=== PATIENT | female | born 1945 | race Caucasian/White ===

== ENCOUNTER → 2016-02-13 | Outpatient (CLI) | payer MEDICARE, OTHER ==
[~2016-02-13] MED LIST: ADV250INH INH; ARAV20TA PO; ASPI81TA85 PO; CALC600T21 PO; HYDR200T3 PO; IRON65TA PO; JANU100T PO; JANU50TA8 PO; PROT1TAB2 PO; SIMV10TA2 PO; TRAM50TA2 PO; VITA100066 PO; VITA100L PO; ZOFR8TAB PO
[2016-02-13 19:04] LABS: ALBUMIN 3.6 GM/DL (3.2-5.2); CALCIUM LEVEL 8.7 MG/DL (8.8-10.2); CREATININE FOR GFR 1.46 MG/DL (0.55-1.02); GLOMERULAR FILTRATION RATE 37.8 (>45); PHOSPHORUS LEVEL 3.9 MG/DL (2.5-4.9)
[2016-02-13 19:48] LABS: BASO % 0.5 % (0.0-1.0); EOS # 0.4 K/mm3 (0.0-0.50); EOS % 6.1 % (0.0-3.0); LARGE UNSTAINED CELL # 0.2 K/mm3 (0.0-0.4); LARGE UNSTAINED CELL % 3.5 % (0.0-4.0); LYMPH # 2.5 K/mm3 (1.5-4.5); LYMPH % 39.8 % (24.0-44.0); MEAN CORPUSCULAR HGB CONC 30.9 g/dl (32.0-36.5); MEAN CORPUSCULAR VOLUME 96.9 fl (80.0-96.0); MONO # 0.5 K/mm3 (0.0-0.8); MONO % 8.4 % (0.0-5.0); NEUTROPHILS # 2.6 K/mm3 (1.8-7.7); NEUTROPHILS % 41.8 % (36.0-66.0); PLATELET COUNT, AUTOMATED 307 k/mm3 (150-450); RED CELL DISTRIBUTION WIDTH 13.8 % (11.5-14.5); WHITE BLOOD COUNT 6.3 K/mm3 (4.0-10.0)
[2016-02-13 20:28] LABS: ERYTHROCYTE SEDIMENTATION RATE 16 mm/hr (0-30)
== END ==
LOC: M WUC 13:08
PROVIDERS: ATTEND Internal Medicine Rheumatology
DX: M05.79 Rheumatoid arthritis with rheumatoid factor of multiple sites without organ or systems involvement (principal); N18.3 Chronic kidney disease, stage 3 (moderate); D63.8 Anemia in other chronic diseases classified elsewhere; Z79.899 Other long term (current) drug therapy

== ENCOUNTER → 2016-04-24 | Outpatient (CLI) | payer MEDICARE, OTHER ==
--- NOTE | 2016-04-24 15:06 | REP ---
Chest x-ray: Two views. History: COPD, respiratory infection. Cold symptoms for 2 months. Comparison chest x-ray is from February 04, 2015. Findings: The lungs are markedly hyperinflated consistent with COPD but clear. Pleural angles are sharp. Heart size is normal. Pulmonary vasculature is not increased. No significant bony abnormality is seen. Impression: Hyperinflation consistent with COPD. No acute disease. Signed by Ahsan Evangelista MD 04/24/2016 05:11 P
== END ==
LOC: M WUC 14:38
PROVIDERS: ATTEND Physician Assistant
DX: J44.0 Chronic obstructive pulmonary disease with (acute) lower respiratory infection (principal)

== ENCOUNTER → 2016-04-26 | Outpatient (CLI) | payer MEDICARE, OTHER ==
[2016-04-26 13:25] LABS: CREATININE FOR GFR 1.85 MG/DL (0.55-1.02); GLOMERULAR FILTRATION RATE 28.8 (>45); POTASSIUM SERUM 4.9 MEQ/L (3.5-5.1)
== END ==
LOC: M WUC 09:34
PROVIDERS: ATTEND Physician Assistant Medical
DX: E11.8 Type 2 diabetes mellitus with unspecified complications (principal); E78.5 Hyperlipidemia, unspecified; N18.9 Chronic kidney disease, unspecified; M81.0 Age-related osteoporosis without current pathological fracture

== ENCOUNTER → 2016-08-10 | Outpatient (CLI) | payer MEDICARE, OTHER ==
[~2016-08-10] MED LIST changes: -CALC600T21 PO; +CALC600T60 PO
[2016-08-10 15:58] LABS: MEAN CORPUSCULAR HEMOGLOBIN 28.2 pg (27.0-33.0); MEAN CORPUSCULAR VOLUME 90.8 fl (80.0-96.0); WHITE BLOOD COUNT 8.7 K/mm3 (4.0-10.0)
[2016-08-10 16:01] LABS: ALBUMIN 3.5 GM/DL (3.2-5.2); CALCIUM LEVEL 8.9 MG/DL (8.8-10.2); CREATININE FOR GFR 1.65 MG/DL (0.55-1.02); GLOMERULAR FILTRATION RATE 32.8 (>45); MAGNESIUM LEVEL 2.1 MG/DL (1.8-2.4); PHOSPHORUS LEVEL 3.8 MG/DL (2.5-4.9); POTASSIUM SERUM 4.6 MEQ/L (3.5-5.1)
[2016-08-11 07:33] LABS: MICROSCOPIC EXAM QNS; MICROSCOPIC INDICATED? MAN YES (NO)
== END ==
LOC: M WUC 11:14
PROVIDERS: ATTEND Internal Medicine Nephrology
DX: N18.3 Chronic kidney disease, stage 3 (moderate) (principal); E11.22 Type 2 diabetes mellitus with diabetic chronic kidney disease; D63.1 Anemia in chronic kidney disease

== ENCOUNTER → 2016-10-07 | Outpatient (CLI) | payer MEDICARE, BC, OTHER ==
[2016-10-07 14:05] LABS: CALCIUM LEVEL 9.2 MG/DL (8.8-10.2); CREATININE FOR GFR 1.8 MG/DL (0.55-1.02); GLOMERULAR FILTRATION RATE 29.6 (>39); POTASSIUM SERUM 4.3 MEQ/L (3.5-5.1)
== END ==
LOC: M SMT 10:35
PROVIDERS: ATTEND Internal Medicine Cardiovascular Disease
DX: I10 Essential (primary) hypertension (principal); R60.9 Edema, unspecified

== ENCOUNTER → 2016-10-25 | Outpatient (CLI) | payer MEDICARE, BC, OTHER ==
[2016-10-25 11:16] LABS: CALCIUM LEVEL 8.5 MG/DL (8.8-10.2); CREATININE FOR GFR 1.9 MG/DL (0.55-1.02); GLOMERULAR FILTRATION RATE 27.8 (>39); POTASSIUM SERUM 4.2 MEQ/L (3.5-5.1)
== END ==
LOC: M WUC 10:04
PROVIDERS: ATTEND Physician Assistant Medical
DX: E11.9 Type 2 diabetes mellitus without complications (principal)

== ENCOUNTER → 2016-11-18 | Outpatient (CLI) | payer MEDICARE, BC, OTHER ==
[2016-11-18 14:23] LABS: FREE T4 1.41 NG/DL (0.76-1.46)
[2016-11-18 14:48] LABS: HEP C VIRUS AB SCREEN MEDICARE 0.3 INDEX (<0.8)
== END ==
LOC: M WUC 10:32
PROVIDERS: ATTEND Physician Assistant Medical
DX: R63.5 Abnormal weight gain (principal); Z11.59 Encounter for screening for other viral diseases
CPT/HCPCS: 36415; 84439; 84443; G0472

== ENCOUNTER → 2017-01-25 | Outpatient (CLI) | payer MEDICARE, BC, OTHER ==
[2017-01-25 14:36] LABS: CALCIUM LEVEL 8.6 MG/DL (8.8-10.2); CREATININE FOR GFR 1.75 MG/DL (0.55-1.02); GLOMERULAR FILTRATION RATE 30.6 (>39); POTASSIUM SERUM 4.5 MEQ/L (3.5-5.1)
== END ==
LOC: M WUC 09:29
PROVIDERS: ATTEND Physician Assistant Medical
DX: E11.8 Type 2 diabetes mellitus with unspecified complications (principal)

== ENCOUNTER → 2017-02-21 | Outpatient (REF) | payer MEDICARE, OTHER ==
[2017-02-21 14:27] LABS: FERRITIN 10 NG/ML (8-252); IRON (FE) 32 UG/DL (50-170); PERCENT SATURATION 6.7 % (13.2-45.0); TOTAL IRON BINDING CAPACITY 476 UG/DL (250-450)
[2017-02-21 14:29] LABS: FOLATE 7.5 NG/ML; VITAMIN B12 LEVEL 320 PG/ML
== END ==
LOC: M LAB REF 13:34
DX: D64.9 Anemia, unspecified (principal)
CPT/HCPCS: 82746

== ENCOUNTER → 2017-02-28 | Outpatient (CLI) | payer MEDICARE, BC, OTHER | LOC: M RAD 10:58 | DX: Z12.2 Encounter for screening for malignant neoplasm of respiratory organs (principal); R91.8 Other nonspecific abnormal finding of lung field; Z87.891 Personal history of nicotine dependence | CPT/HCPCS: G0297 ==

== ENCOUNTER → 2017-05-27 | Outpatient (CLI) | payer MEDICARE, BC, OTHER ==
[2017-05-27 18:16] LABS: ANION GAP 11 MEQ/L (8-16); BLOOD UREA NITROGEN 13 MG/DL (7-18); CALCIUM LEVEL 9.2 MG/DL (8.8-10.2); CARBON DIOXIDE LEVEL 28 MEQ/L (21-32); CHLORIDE LEVEL 101 MEQ/L (98-107); CHOLESTEROL LEVEL 192 MG/DL (<200); CHOLESTEROL RISK RATIO 2.133 (<5); CREATININE FOR GFR 1.81 MG/DL (0.55-1.30); ESTIMATED AVERAGE GLUCOSE 146 MG/DL (60-110); GLOMERULAR FILTRATION RATE 29.4 (>39); GLUCOSE, FASTING 118 MG/DL (70-100); HDL CHOLESTEROL 90 MG/DL (>40); HEMOGLOBIN A1c 6.7 %; LDL CHOLESTEROL 81.6 MG/DL (<100); NON-HDL-C 102 MG/DL; POTASSIUM SERUM 4.5 MEQ/L (3.5-5.1); SODIUM LEVEL 140 MEQ/L (136-145); TRIGLYCERIDES LEVEL 102 MG/DL (<150)
[2017-05-27 18:30] LABS: CREATININE, URINE 21.7 MG/DL; MALB URINE SIEMENS 7.3 MG/L; MAU/CREAT RATIO 33.6 MCG/MG (0.0-30.0)
== END ==
LOC: M WUC 09:11
DX: E11.8 Type 2 diabetes mellitus with unspecified complications (principal); E78.5 Hyperlipidemia, unspecified
CPT/HCPCS: 83036

== ENCOUNTER → 2017-06-06 | Outpatient (CLI) | payer MEDICARE, BC, OTHER | LOC: M PLARAD 12:15 | DX: R91.8 Other nonspecific abnormal finding of lung field (principal); Z87.891 Personal history of nicotine dependence | CPT/HCPCS: 78815 ==

== ENCOUNTER → 2017-06-22 | Outpatient (REF) | payer MEDICARE, OTHER ==
[2017-06-22 19:48] LABS: ALBUMIN 3.9 GM/DL (3.2-5.2); ALKALINE PHOSPHATASE 62 U/L (45-117); ALT/SGPT 12 U/L (12-78); AST/SGOT 15 U/L (7-37); BILIRUBIN,DIRECT < 0.1 MG/DL (0.0-0.2); BILIRUBIN,TOTAL 0.3 MG/DL (0.2-1.0); TOTAL PROTEIN 7.8 GM/DL (6.4-8.2)
== END ==
LOC: M LAB REF 17:32
DX: E78.5 Hyperlipidemia, unspecified (principal)
CPT/HCPCS: 80076

== ENCOUNTER → 2017-11-29 | Outpatient (CLI) | payer MEDICARE, OTHER ==
[2017-11-29 13:56] LABS: ANION GAP 7 MEQ/L (8-16); BLOOD UREA NITROGEN 14 MG/DL (7-18); CALCIUM LEVEL 9.1 MG/DL (8.8-10.2); CARBON DIOXIDE LEVEL 30 MEQ/L (21-32); CHLORIDE LEVEL 102 MEQ/L (98-107); CREATININE FOR GFR 1.67 MG/DL (0.55-1.30); GLOMERULAR FILTRATION RATE 32.2 (>39); GLUCOSE, FASTING 110 MG/DL (70-100); POTASSIUM SERUM 4.5 MEQ/L (3.5-5.1); SODIUM LEVEL 139 MEQ/L (136-145)
[2017-11-29 14:03] LABS: ESTIMATED AVERAGE GLUCOSE 154 MG/DL (60-110)
[2017-11-29 14:15] LABS: TOTAL 25(OH) VITAMIN D 33.2 NG/ML (30.0-100.0)
== END ==
LOC: M WUC 09:43
DX: E11.22 Type 2 diabetes mellitus with diabetic chronic kidney disease (principal); M81.0 Age-related osteoporosis without current pathological fracture; N18.3 Chronic kidney disease, stage 3 (moderate); E55.9 Vitamin D deficiency, unspecified
CPT/HCPCS: 83036

== ENCOUNTER → 2017-12-13 | Outpatient (REF) | payer MEDICARE, OTHER ==
[2017-12-13 17:03] LABS: BASO # 0.1 10^3/uL (0.0-0.2); BASO % 0.9 % (0.0-1.0); EOS # 0.2 10^3/uL (0.0-0.50); EOS % 2.4 % (0.0-3.0); HEMATOCRIT 37.6 % (36.0-47.0); HEMOGLOBIN 11.6 g/dl (12.0-15.5); IMMATURE GRANULOCYTE % 0.3 % (0-3.0); LYMPH % 37.8 % (24.0-44.0); MEAN CORPUSCULAR HEMOGLOBIN 27.5 pg (27.0-33.0); MEAN CORPUSCULAR HGB CONC 30.9 g/dl (32.0-36.5); MEAN CORPUSCULAR VOLUME 89.1 fl (80.0-96.0); MONO % 12.6 % (0.0-5.0); NEUTROPHILS # 3.6 10^3/uL (1.8-7.7); PLATELET COUNT, AUTOMATED 313 10^3/uL (150-450); RED BLOOD COUNT 4.22 10^6/uL (4.00-5.40); RED CELL DISTRIBUTION WIDTH 17.3 % (11.5-14.5); WHITE BLOOD COUNT 7.8 10^3/uL (4.0-10.0)
[2017-12-13 17:11] LABS: ALBUMIN 3.8 GM/DL (3.2-5.2); ALBUMIN/GLOBULIN RATIO 1.09 (1.00-1.93); ALKALINE PHOSPHATASE 54 U/L (45-117); ALT/SGPT 11 U/L (12-78); ANION GAP 7 MEQ/L (8-16); AST/SGOT 16 U/L (7-37); BILIRUBIN,TOTAL 0.2 MG/DL (0.2-1.0); BLOOD UREA NITROGEN 13 MG/DL (7-18); C REACTIVE PROTEIN QUANTITATIV < 0.30 MG/DL (0.00-0.30); CALCIUM LEVEL 9.2 MG/DL (8.8-10.2); CARBON DIOXIDE LEVEL 32 MEQ/L (21-32); CHLORIDE LEVEL 98 MEQ/L (98-107); CREATININE FOR GFR 1.76 MG/DL (0.55-1.30); GLOMERULAR FILTRATION RATE 30.3 (>39); GLUCOSE, FASTING 124 MG/DL (70-100); POTASSIUM SERUM 3.9 MEQ/L (3.5-5.1); SODIUM LEVEL 137 MEQ/L (136-145); TOTAL PROTEIN 7.3 GM/DL (6.4-8.2)
[2017-12-13 18:00] LABS: ERYTHROCYTE SEDIMENTATION RATE 21 mm/hr (0-30)
[2017-12-15 10:57] LABS: HEPATITIS B SURFACE ANTIBODY NEGATIVE (POSITIVE)
[2017-12-15 11:05] LABS: HEPATITIS B SURFACE ANTIGEN NEGATIVE (NEGATIVE)
[2017-12-16 00:06] LABS: CYCLIC CITRULLINATED PEPTIDE 216 units (0-19)
[2017-12-16 00:06] LABS: HEPATITIS B CORE ANTIBODY IGG Negative (Negative)
== END ==
LOC: M SFHCLERA 12:00
DX: M06.9 Rheumatoid arthritis, unspecified (principal)
CPT/HCPCS: 80053

== ENCOUNTER → 2018-01-08 | Outpatient (CLI) | payer MEDICARE, OTHER | LOC: M WUC 14:33 | DX: R05 Cough (principal) | CPT/HCPCS: 71046 ==

== ENCOUNTER → 2018-06-05 | Outpatient (CLI) | payer MEDICARE, BC, OTHER ==
[~2018-06-05] MED LIST changes: -ZOFR8TAB PO; +ZOFR8TAB24 PO
[2018-06-05 13:33] LABS: ALBUMIN 3.4 GM/DL (3.2-5.2); BILIRUBIN,TOTAL 0.3 MG/DL (0.2-1.0); CALCIUM LEVEL 8.6 MG/DL (8.8-10.2); CHOLESTEROL RISK RATIO 1.978 (<5); CREATININE FOR GFR 1.59 MG/DL (0.55-1.30); GLOMERULAR FILTRATION RATE 34.1 (>39); POTASSIUM SERUM 4.6 MEQ/L (3.5-5.1); TOTAL PROTEIN 7.1 GM/DL (6.4-8.2)
[2018-06-05 14:22] LABS: HEMOGLOBIN A1c 7.6 %
== END ==
LOC: M WUC 09:40
PROVIDERS: ATTEND Physician Assistant Medical
DX: E11.8 Type 2 diabetes mellitus with unspecified complications (principal); E78.5 Hyperlipidemia, unspecified

== ENCOUNTER → 2018-06-08 | Outpatient (REF) | payer MEDICARE, OTHER ==
[2018-06-08 15:44] LABS: CREATININE, URINE 32.2 MG/DL; MALB URINE SIEMENS 5.5 MG/L
== END ==
LOC: M LAB REF 14:27
PROVIDERS: ATTEND Physician Assistant Medical
DX: E11.8 Type 2 diabetes mellitus with unspecified complications (principal); E78.5 Hyperlipidemia, unspecified

== ENCOUNTER → 2018-06-13 | Outpatient (CLI) | payer MEDICARE, OTHER ==
[2018-06-13 16:53] LABS: ALBUMIN 3.5 GM/DL (3.2-5.2); ALT/SGPT 15 U/L (12-78); BILIRUBIN,TOTAL 0.2 MG/DL (0.2-1.0); BLOOD UREA NITROGEN 13 MG/DL (7-18); C REACTIVE PROTEIN QUANTITATIV < 0.30 MG/DL (0.00-0.30); CALCIUM LEVEL 8.8 MG/DL (8.8-10.2); CARBON DIOXIDE LEVEL 28 MEQ/L (21-32); CHLORIDE LEVEL 106 MEQ/L (98-107); CREATININE FOR GFR 1.37 MG/DL (0.55-1.30); GLOMERULAR FILTRATION RATE 40.5 (>39); GLUCOSE, FASTING 114 MG/DL (70-100); POTASSIUM SERUM 4.5 MEQ/L (3.5-5.1); SODIUM LEVEL 138 MEQ/L (136-145); TOTAL PROTEIN 6.5 GM/DL (6.4-8.2)
[2018-06-13 17:25] LABS: BASO # 0.1 10^3/uL (0.0-0.2); BASO % 0.7 % (0.0-1.0); EOS # 0.3 10^3/uL (0.0-0.50); EOS % 3.8 % (0.0-3.0); HEMOGLOBIN 10.6 g/dl (12.0-15.5); LYMPH # 2.9 10^3/uL (1.5-4.5); LYMPH % 34.5 % (24.0-44.0); MEAN CORPUSCULAR HEMOGLOBIN 27.6 pg (27.0-33.0); MEAN CORPUSCULAR HGB CONC 30.3 g/dl (32.0-36.5); MEAN CORPUSCULAR VOLUME 91.1 fl (80.0-96.0); MONO % 12.2 % (0.0-5.0); NEUTROPHILS # 4.1 10^3/uL (1.8-7.7); NEUTROPHILS % 48.4 % (36.0-66.0); PLATELET COUNT, AUTOMATED 279 10^3/uL (150-450); RED BLOOD COUNT 3.84 10^6/uL (4.00-5.40); WHITE BLOOD COUNT 8.5 10^3/uL (4.0-10.0)
[2018-06-13 18:07] LABS: ERYTHROCYTE SEDIMENTATION RATE 21 mm/hr (0-30)
== END ==
LOC: M WUC 14:15
PROVIDERS: ATTEND Internal Medicine Rheumatology
DX: M06.9 Rheumatoid arthritis, unspecified (principal)

== ENCOUNTER → 2018-09-11 | Outpatient (CLI) | payer MEDICARE, OTHER ==
[~2018-09-11] MED LIST changes: +EFFE20TA PO; +ETAN50SY SC; +INCR1INH INH; +OMEG100011 PO; +RALO1TAB PO; -SIMV10TA2 PO; +SIMV10TA21 PO; +SITA50TAB PO; +TORS20TA2 PO; +TRUL0.5I SC; +VENTAER INH; +VIAC1CHW PO
[2018-09-11 14:27] LABS: BASO # 0.1 10^3/uL (0.0-0.2); BASO % 0.6 % (0.0-1.0); EOS # 0.2 10^3/uL (0.0-0.50); EOS % 2.3 % (0.0-3.0); HEMATOCRIT 38.1 % (36.0-47.0); HEMOGLOBIN 11.6 g/dl (12.0-15.5); LYMPH # 2.6 10^3/uL (1.5-4.5); LYMPH % 31.1 % (24.0-44.0); MEAN CORPUSCULAR HEMOGLOBIN 27.9 pg (27.0-33.0); MEAN CORPUSCULAR HGB CONC 30.4 g/dl (32.0-36.5); MEAN CORPUSCULAR VOLUME 91.6 fl (80.0-96.0); MONO # 0.9 10^3/uL (0.0-0.8); MONO % 11.2 % (0.0-5.0); NEUTROPHILS # 4.5 10^3/uL (1.8-7.7); NEUTROPHILS % 54.3 % (36.0-66.0); PLATELET COUNT, AUTOMATED 297 10^3/uL (150-450); RED BLOOD COUNT 4.16 10^6/uL (4.00-5.40); WHITE BLOOD COUNT 8.2 10^3/uL (4.0-10.0)
[2018-09-11 14:31] LABS: CALCIUM LEVEL 9.3 MG/DL (8.8-10.2); CHOLESTEROL RISK RATIO 2.164 (<5); CREATININE FOR GFR 1.38 MG/DL (0.55-1.30); GLOMERULAR FILTRATION RATE 40.1 (>39); POTASSIUM SERUM 4.1 MEQ/L (3.5-5.1)
[2018-09-11 15:01] LABS: HEMOGLOBIN A1c 7.6 %
== END ==
LOC: M WUC 08:21
PROVIDERS: ATTEND Physician Assistant Medical
DX: E11.8 Type 2 diabetes mellitus with unspecified complications (principal)

== ENCOUNTER 2018-09-22 12:39 | Emergency (ER) | payer MEDICARE, BC, OTHER ==
[~2018-09-22] VITALS: Ht 152.4 cm; Wt 73.4 kg
[~2018-09-22 12:39] MED LIST changes: -EFFE20TA PO; -ETAN50SY SC; -INCR1INH INH; -OMEG100011 PO; -RALO1TAB PO; -SITA50TAB PO; -TORS20TA2 PO; -TRUL0.5I SC; -VENTAER INH; -VIAC1CHW PO
[2018-09-22 12:40] VITALS: BP 176/87
[2018-09-22] MEDS ORDERED: SITA50TAB PO (12:56)
[2018-09-22] MEDS ORDERED: ETAN50SY SC (12:56)
[2018-09-22] MEDS ORDERED: OMEG100011 PO (12:56)
[2018-09-22] MEDS ORDERED: VENTAER INH (12:56)
[2018-09-22] MEDS ORDERED: RALO1TAB PO (12:56)
[2018-09-22] MEDS ORDERED: TRUL0.5I SC (12:56)
[2018-09-22] MEDS ORDERED: VIAC1CHW PO (12:56)
[2018-09-22] MEDS ORDERED: ADV250INH INH (12:56)
[2018-09-22] MEDS ORDERED: INCR1INH INH (12:56)
[2018-09-22] MEDS ORDERED: TORS20TA2 PO (12:56)
[2018-09-22] MEDS ORDERED: EFFE20TA PO (12:56)
[2018-09-22 13:28] LABS: BASO # 0.1 10^3/uL (0.0-0.2); BASO % 0.8 % (0.0-1.0); EOS # 0.2 10^3/uL (0.0-0.50); EOS % 3.1 % (0.0-3.0); HEMATOCRIT 40.3 % (36.0-47.0); HEMOGLOBIN 12.5 g/dl (12.0-15.5); LYMPH # 2.7 10^3/uL (1.5-4.5); LYMPH % 35.5 % (24.0-44.0); MEAN CORPUSCULAR HEMOGLOBIN 28.2 pg (27.0-33.0); MEAN CORPUSCULAR VOLUME 90.8 fl (80.0-96.0); MONO % 13.4 % (0.0-5.0); NEUTROPHILS # 3.6 10^3/uL (1.8-7.7); NEUTROPHILS % 46.8 % (36.0-66.0); PLATELET COUNT, AUTOMATED 365 10^3/uL (150-450); RED BLOOD COUNT 4.44 10^6/uL (4.00-5.40); WHITE BLOOD COUNT 7.6 10^3/uL (4.0-10.0)
[2018-09-22 13:47] LABS: HEMOGLOBIN A1c 7.9 %
[2018-09-22 14:05] LABS: ACETONE/KETONE 2.2 MG/DL (<2.81); CALCIUM LEVEL 9.6 MG/DL (8.8-10.2); CREATININE FOR GFR 1.62 MG/DL (0.55-1.30); GLOMERULAR FILTRATION RATE 33.3 (>39); MAGNESIUM LEVEL 2.4 MG/DL (1.8-2.4); POTASSIUM SERUM 4.3 MEQ/L (3.5-5.1)
--- NOTE | 2018-09-22 19:38 | ECGEPIP ---
[facility] - ED Test Date: 2018-09-22 Pat Name: BEVERLY AUSTIN Department: Room: - Gender: Female [employer]: ct : 1945 Requested By: GEOVANNA Jensen PA-C Order Number: [id number] Reading MD: Fernando Otoole Measurements Intervals [place] Rate: 76 P: 85 TX: 158 QRS: -26 QRSD: 86 T: 74 QT: 377 QTc: 426 Interpretive Statements SINUS RHYTHM BORDERLINE LEFT AXIS DEVIATION NONSPECIFIC ST T WAVE CHANGES POSSIBE INFERIOR WALL SC AGE UNDETERMINED NO PRIOR ECG FOR COMPARISON Electronically Signed on 09-22-2018 19:38:30 EDT by Fernando Otoole
== END 2018-09-22 15:15 | disposition home or self-care (01) ==
LOC: M ED 12:39
DX: E11.9 Type 2 diabetes mellitus without complications (principal); N18.9 Chronic kidney disease, unspecified; R79.89 Other specified abnormal findings of blood chemistry; I12.9 Hypertensive chronic kidney disease with stage 1 through stage 4 chronic kidney disease, or unspecified chronic kidney disease; J45.909 Unspecified asthma, uncomplicated; D50.9 Iron deficiency anemia, unspecified; K21.9 Gastro-esophageal reflux disease without esophagitis; Z79.4 Long term (current) use of insulin; Z79.899 Other long term (current) drug therapy; Z79.82 Long term (current) use of aspirin; Z88.1 Allergy status to other antibiotic agents; Z88.2 Allergy status to sulfonamides; F17.210 Nicotine dependence, cigarettes, uncomplicated

== ENCOUNTER → 2018-12-10 | Outpatient (CLI) | payer MEDICARE, BC, OTHER ==
[~2018-12-10] MED LIST changes: +EFFE20TA PO; +ETAN50SY SC; +INCR1INH INH; +OMEG100011 PO; +RALO1TAB PO; +SIMV10TA2 PO; -SIMV10TA21 PO; +SITA50TAB PO; +TORS20TA2 PO; +TRUL0.5I SC; +VENTAER INH; +VIAC1CHW PO
[2018-12-10 17:12] LABS: BASO # 0.1 10^3/uL (0.0-0.2); EOS # 0.3 10^3/uL (0.0-0.5); EOS % 3.6 % (0.0-3.0); HEMATOCRIT 35.6 % (36.0-47.0); HEMOGLOBIN 10.5 g/dl (12.0-15.5); LYMPH # 3.1 10^3/uL (1.5-5.0); LYMPH % 37.5 % (24.0-44.0); MEAN CORPUSCULAR HEMOGLOBIN 27.4 pg (27.0-33.0); MEAN CORPUSCULAR HGB CONC 29.5 g/dl (32.0-36.5); MONO # 1.1 10^3/uL (0.0-0.8); MONO % 13.1 % (0.0-5.0); NEUTROPHILS # 3.7 10^3/uL (1.5-8.5); NEUTROPHILS % 44.6 % (36.0-66.0); PLATELET COUNT, AUTOMATED 379 10^3/uL (150-450); RED BLOOD COUNT 3.83 10^6/uL (4.00-5.40); WHITE BLOOD COUNT 8.3 10^3/uL (4.0-10.0)
== END ==
LOC: M WUC 12:13
PROVIDERS: ATTEND Internal Medicine Rheumatology
DX: M06.9 Rheumatoid arthritis, unspecified (principal)

== ENCOUNTER → 2018-12-10 | Outpatient (CLI) | payer MEDICARE, BC, OTHER ==
[~2018-12-10] MED LIST changes: -SIMV10TA2 PO; +SIMV10TA21 PO
[2018-12-10 17:21] LABS: ALBUMIN 3.4 GM/DL (3.2-5.2); BILIRUBIN,TOTAL 0.6 MG/DL (0.2-1.0); CREATININE FOR GFR 1.51 MG/DL (0.55-1.30); GLOMERULAR FILTRATION RATE 36.1 (>39); POTASSIUM SERUM 4.5 MEQ/L (3.5-5.1); TOTAL PROTEIN 6.8 GM/DL (6.4-8.2)
== END ==
LOC: M WUC 12:09
PROVIDERS: ATTEND Family Medicine
DX: E11.69 Type 2 diabetes mellitus with other specified complication (principal)

== ENCOUNTER → 2019-06-12 | Outpatient (CLI) | payer MEDICARE, BC, OTHER ==
[2019-06-12 14:00] LABS: BASO # 0.1 10^3/uL (0.0-0.2); BASO % 0.9 % (0.0-1.0); EOS # 0.4 10^3/uL (0.0-0.5); EOS % 3.9 % (0.0-3.0); HEMATOCRIT 38.1 % (36.0-47.0); HEMOGLOBIN 11.7 g/dl (12.0-15.5); LYMPH # 2.7 10^3/uL (1.5-5.0); LYMPH % 30.5 % (24.0-44.0); MEAN CORPUSCULAR HEMOGLOBIN 29.3 pg (27.0-33.0); MEAN CORPUSCULAR HGB CONC 30.7 g/dl (32.0-36.5); MEAN CORPUSCULAR VOLUME 95.3 fl (80.0-96.0); MONO # 1.1 10^3/uL (0.0-0.8); MONO % 12.3 % (0.0-5.0); NEUTROPHILS # 4.7 10^3/uL (1.5-8.5); NEUTROPHILS % 52.2 % (36.0-66.0); PLATELET COUNT, AUTOMATED 390 10^3/uL (150-450)
[2019-06-12 14:01] LABS: BASO # 0.1 10^3/uL (0.0-0.2); EOS # 0.4 10^3/uL (0.0-0.5); HEMATOCRIT 38.3 % (36.0-47.0); HEMOGLOBIN 11.8 g/dl (12.0-15.5); LYMPH # 2.7 10^3/uL (1.5-5.0); LYMPH % 31.5 % (24.0-44.0); MEAN CORPUSCULAR HEMOGLOBIN 29.2 pg (27.0-33.0); MEAN CORPUSCULAR HGB CONC 30.8 g/dl (32.0-36.5); MEAN CORPUSCULAR VOLUME 94.8 fl (80.0-96.0); MONO # 1.1 10^3/uL (0.0-0.8); MONO % 12.5 % (0.0-5.0); NEUTROPHILS # 4.4 10^3/uL (1.5-8.5); NEUTROPHILS % 50.8 % (36.0-66.0); PLATELET COUNT, AUTOMATED 402 10^3/uL (150-450); RED BLOOD COUNT 4.04 10^6/uL (4.00-5.40); WHITE BLOOD COUNT 8.7 10^3/uL (4.0-10.0)
[2019-06-12 14:17] LABS: HEMOGLOBIN A1c 6.7 %
[2019-06-12 14:21] LABS: ERYTHROCYTE SEDIMENTATION RATE 30 mm/hr (0-30)
[2019-06-12 14:34] LABS: ALBUMIN 3.6 GM/DL (3.2-5.2); ALT/SGPT 17 U/L (12-78); BILIRUBIN,TOTAL 0.3 MG/DL (0.2-1.0); BLOOD UREA NITROGEN 16 MG/DL (7-18); C REACTIVE PROTEIN QUANTITATIV < 0.30 MG/DL (0.00-0.30); CARBON DIOXIDE LEVEL 35 MEQ/L (21-32); CHLORIDE LEVEL 99 MEQ/L (98-107); CREATININE FOR GFR 1.71 MG/DL (0.55-1.30); GLOMERULAR FILTRATION RATE 31.2 (>39); GLUCOSE, FASTING 108 MG/DL (70-100); POTASSIUM SERUM 4.1 MEQ/L (3.5-5.1); SODIUM LEVEL 139 MEQ/L (136-145); TOTAL PROTEIN 7.3 GM/DL (6.4-8.2)
[2019-06-12 14:36] LABS: ALBUMIN 3.5 GM/DL (3.2-5.2); BILIRUBIN,TOTAL 0.3 MG/DL (0.2-1.0); CALCIUM LEVEL 9.3 MG/DL (8.8-10.2); CHOLESTEROL RISK RATIO 2.114 (<5); CREATININE FOR GFR 1.62 MG/DL (0.55-1.30); GLOMERULAR FILTRATION RATE 33.3 (>39); POTASSIUM SERUM 4.3 MEQ/L (3.5-5.1); TOTAL PROTEIN 7.2 GM/DL (6.4-8.2)
[2019-06-12 14:42] LABS: CREATININE, URINE 21.9 MG/DL; MALB URINE SIEMENS < 5.0 MG/L; MAU/CREAT RATIO 22.8 MCG/MG (0.0-30.0)
[2019-06-12 14:53] LABS: HEPATITIS B SURFACE ANTIGEN NEGATIVE (NEGATIVE)
[2019-06-12 15:22] LABS: HEPATITIS C VIRUS ABY INDEX 0.1 INDEX (<0.8)
== END ==
LOC: M PLALAB 11:54
PROVIDERS: ATTEND Family Medicine
DX: E11.69 Type 2 diabetes mellitus with other specified complication (principal); M05.79 Rheumatoid arthritis with rheumatoid factor of multiple sites without organ or systems involvement

== ENCOUNTER → 2019-11-23 | Outpatient (CLI) | payer MEDICARE, BC, OTHER ==
[~2019-11-23] MED LIST changes: -ASPI81TA85 PO; +ASPI81TA86 PO
[2019-11-23 13:32] LABS: BASO # 0.1 10^3/uL (0.0-0.2); BASO % 1.1 % (0.0-1.0); EOS # 0.5 10^3/uL (0.0-0.5); EOS % 5.4 % (0.0-3.0); HEMATOCRIT 39.7 % (36.0-47.0); HEMOGLOBIN 12.1 g/dl (12.0-15.5); LYMPH # 2.7 10^3/uL (1.5-5.0); LYMPH % 29.1 % (24.0-44.0); MEAN CORPUSCULAR HEMOGLOBIN 28.8 pg (27.0-33.0); MEAN CORPUSCULAR HGB CONC 30.5 g/dl (32.0-36.5); MEAN CORPUSCULAR VOLUME 94.5 fl (80.0-96.0); MONO % 10.4 % (0.0-5.0); NEUTROPHILS % 53.8 % (36.0-66.0); PLATELET COUNT, AUTOMATED 316 10^3/uL (150-450); WHITE BLOOD COUNT 9.2 10^3/uL (4.0-10.0)
[2019-11-23 13:42] LABS: HEMOGLOBIN A1c 6.7 %
[2019-11-23 13:57] LABS: ALBUMIN 3.1 GM/DL (3.2-5.2); BILIRUBIN,TOTAL 0.3 MG/DL (0.2-1.0); CALCIUM LEVEL 8.5 MG/DL (8.8-10.2); CHOLESTEROL RISK RATIO 2.039 (<5); CREATININE FOR GFR 1.39 MG/DL (0.55-1.30); GLOMERULAR FILTRATION RATE 39.6 (>39); POTASSIUM SERUM 4.9 MEQ/L (3.5-5.1); TOTAL PROTEIN 6.5 GM/DL (6.4-8.2)
== END ==
LOC: M WUC 08:17
PROVIDERS: ATTEND Family Medicine
DX: E11.69 Type 2 diabetes mellitus with other specified complication (principal)

== ENCOUNTER → 2019-11-24 | Outpatient (CLI) | payer MEDICARE, BC, OTHER ==
[2019-11-24 17:55] LABS: CREATININE, URINE 39.6 MG/DL; MALB URINE SIEMENS < 5.0 MG/L; MAU/CREAT RATIO 12.6 MCG/MG (0.0-30.0)
== END ==
LOC: M WUC 13:34
PROVIDERS: ATTEND Family Medicine
DX: E11.69 Type 2 diabetes mellitus with other specified complication (principal)

== ENCOUNTER → 2020-05-19 | Outpatient (CLI) | payer MEDICARE, BC, OTHER ==
[2020-05-19 17:10] LABS: HEMOGLOBIN A1c 7.2 %
[2020-05-19 17:18] LABS: ALBUMIN 3.6 GM/DL (3.2-5.2); BILIRUBIN,TOTAL 0.2 MG/DL (0.2-1.0); CALCIUM LEVEL 9.3 MG/DL (8.8-10.2); CREATININE FOR GFR 1.66 MG/DL (0.55-1.30); GLOMERULAR FILTRATION RATE 32.2 (>39); POTASSIUM SERUM 4.7 MEQ/L (3.5-5.1); TOTAL PROTEIN 7.1 GM/DL (6.4-8.2)
== END ==
LOC: M WUC 13:07
PROVIDERS: ATTEND Family Medicine
DX: E11.69 Type 2 diabetes mellitus with other specified complication (principal)

== ENCOUNTER → 2020-05-19 | Outpatient (CLI) | payer MEDICARE, BC, OTHER ==
[2020-05-19 16:43] LABS: BASO # 0.1 10^3/uL (0.0-0.2); BASO % 0.8 % (0.0-1.0); EOS # 0.5 10^3/uL (0.0-0.5); EOS % 5.2 % (0.0-3.0); HEMATOCRIT 36.6 % (36.0-47.0); HEMOGLOBIN 10.5 g/dl (12.0-15.5); LYMPH # 2.8 10^3/uL (1.5-5.0); LYMPH % 30.6 % (24.0-44.0); MEAN CORPUSCULAR HEMOGLOBIN 26.3 pg (27.0-33.0); MEAN CORPUSCULAR HGB CONC 28.7 g/dl (32.0-36.5); MEAN CORPUSCULAR VOLUME 91.7 fl (80.0-96.0); MONO # 1.1 10^3/uL (0.0-0.8); MONO % 12.3 % (2.0-8.0); NEUTROPHILS # 4.7 10^3/uL (1.5-8.5); NEUTROPHILS % 50.8 % (36.0-66.0); PLATELET COUNT, AUTOMATED 449 10^3/uL (150-450); RED BLOOD COUNT 3.99 10^6/uL (4.00-5.40); WHITE BLOOD COUNT 9.3 10^3/uL (4.0-10.0)
[2020-05-19 17:19] LABS: ALBUMIN 3.6 GM/DL (3.2-5.2); BILIRUBIN,TOTAL 0.2 MG/DL (0.2-1.0); C REACTIVE PROTEIN QUANTITATIV 0.3 MG/DL (0.00-0.30); CALCIUM LEVEL 9.5 MG/DL (8.8-10.2); CREATININE FOR GFR 1.68 MG/DL (0.55-1.30); GLOMERULAR FILTRATION RATE 31.8 (>39); POTASSIUM SERUM 4.4 MEQ/L (3.5-5.1); TOTAL PROTEIN 7.1 GM/DL (6.4-8.2)
[2020-05-19 18:07] LABS: ERYTHROCYTE SEDIMENTATION RATE 35 mm/hr (0-30)
== END ==
LOC: M WUC 13:03
PROVIDERS: ATTEND Internal Medicine
DX: M05.79 Rheumatoid arthritis with rheumatoid factor of multiple sites without organ or systems involvement (principal); E11.69 Type 2 diabetes mellitus with other specified complication

== ENCOUNTER → 2020-08-07 | Outpatient (CLI) | payer MEDICARE, BC, OTHER ==
--- NOTE | 2020-08-07 11:12 | REP ---
INDICATION: RHEUMATOID ARTHRITIS COMPARISON: None. TECHNIQUE: AP, lateral, bilateral oblique views right and left hand. FINDINGS: Left hand demonstrates osteopenia and advanced degenerative changes primarily involving the 1st and 5th metacarpophalangeal joints where subchondral sclerosis/heterogeneity and cystic changes are appreciated along with joint space obliteration, marginal spurring and mild chronic subluxation. Moderate age-related osteoarthritic degenerative changes noted throughout the remainder of the wrist and hand. No evidence for acute fracture or dislocation. Right hand demonstrates osteopenia and the advanced degenerative changes primarily involving the 1st and 2nd metacarpophalangeal joints where subchondral sclerosis/heterogeneity and cystic changes are appreciated along with joint space obliteration, marginal spurring and mild chronic subluxation. Less pronounced arthritic changes are also identified at the scaphotrapeziotrapezoidal joint along with moderate periarticular sclerosis and joint space narrowing at the 1st through 5th interphalangeal joints. No evidence for acute fracture or dislocation IMPRESSION: Osteopenia and degenerative changes as detailed above. <Electronically signed by Germán Munoz > 08/07/20 1104
== END ==
LOC: M WUC 10:39
PROVIDERS: ATTEND Internal Medicine
DX: M05.79 Rheumatoid arthritis with rheumatoid factor of multiple sites without organ or systems involvement (principal)

== ENCOUNTER → 2020-08-07 | Outpatient (CLI) | payer MEDICARE, BC, OTHER ==
--- NOTE | 2020-08-07 11:04 | REP ---
INDICATION: COUGH, COPD, SOB COMPARISON: 01/08/2018 TECHNIQUE: PA and lateral. FINDINGS: The mediastinum and cardiac silhouette are normal. The lung johnston demonstrate stable chronic changes without acute consolidation, effusion, or pneumothorax. The skeletal structures are intact and normal. IMPRESSION: No acute cardiopulmonary process. <Electronically signed by Germán Munoz > 08/07/20 1100
== END ==
LOC: M WUC 10:35
PROVIDERS: ATTEND Physician Assistant
DX: R05 Cough (principal); M85.841 Other specified disorders of bone density and structure, right hand; M85.842 Other specified disorders of bone density and structure, left hand; M19.041 Primary osteoarthritis, right hand; M19.042 Primary osteoarthritis, left hand

== ENCOUNTER → 2020-09-08 | Outpatient (REF) | payer MEDICARE, BC, OTHER | LOC: M LAB REF 12:42 | PROVIDERS: ATTEND Internal Medicine Nephrology | DX: N18.32 Chronic kidney disease, stage 3b (principal) ==

== ENCOUNTER → 2020-10-13 | Outpatient (REF) | payer MEDICARE, BC, OTHER ==
[2020-10-13 17:16] LABS: C REACTIVE PROTEIN QUANTITATIV < 0.30 MG/DL (0.00-0.30); IMMUNOGLOBULIN G 1200 MG/DL (681-1648); TOTAL PROTEIN 7.2 GM/DL (6.4-8.2)
[2020-10-14 12:35] LABS: ALBUMIN 3.77 GM/DL (3.29-5.55); ALBUMIN % 52.4 % (55.8-66.1); ALPHA-1-GLOBULIN % 5.6 % (2.9-4.9); ALPHA-2-GLOBULINS 1.04 GM/DL (0.42-0.99); ALPHA-2-GLOBULINS % 14.4 % (7.1-11.8); BETA-1-GLOBULINS 0.48 GM/DL (0.28-0.60); BETA-1-GLOBULINS % 6.7 % (4.7-7.2); GAMMA GLOBULIN % 15.9 % (11.1-18.8)
[2020-10-14 12:36] LABS: BETA-2-GLOBULINS 0.36 GM/DL (0.19-0.55); GAMMA GLOBULINS 1.14 GM/DL (0.65-1.58)
== END ==
LOC: M WUC 15:41
PROVIDERS: ATTEND Internal Medicine
DX: M05.79 Rheumatoid arthritis with rheumatoid factor of multiple sites without organ or systems involvement (principal)

== ENCOUNTER → 2020-11-10 | Outpatient (REF) | payer MEDICARE, BC, OTHER | LOC: M LAB REF 12:53 | PROVIDERS: ATTEND Internal Medicine Nephrology | DX: N18.32 Chronic kidney disease, stage 3b (principal) ==

== ENCOUNTER → 2020-11-17 | Outpatient (CLI) | payer MEDICARE, BC, OTHER ==
[2020-11-17 16:22] LABS: BASO # 0.1 10^3/uL (0.0-0.2); BASO % 0.8 % (0.0-1.0); EOS # 0.4 10^3/uL (0.0-0.5); HEMATOCRIT 41.7 % (36.0-47.0); HEMOGLOBIN 12.4 g/dl (12.0-15.5); LYMPH # 2.3 10^3/uL (1.5-5.0); LYMPH % 23.9 % (24.0-44.0); MEAN CORPUSCULAR HEMOGLOBIN 27.3 pg (27.0-33.0); MEAN CORPUSCULAR HGB CONC 29.7 g/dl (32.0-36.5); MEAN CORPUSCULAR VOLUME 91.6 fl (80.0-96.0); MONO # 1.1 10^3/uL (0.0-0.8); MONO % 11.6 % (2.0-8.0); NEUTROPHILS # 5.7 10^3/uL (1.5-8.5); NEUTROPHILS % 59.3 % (36.0-66.0); PLATELET COUNT, AUTOMATED 371 10^3/uL (150-450); RED BLOOD COUNT 4.55 10^6/uL (4.00-5.40); WHITE BLOOD COUNT 9.7 10^3/uL (4.0-10.0)
[2020-11-17 16:48] LABS: ALBUMIN 3.1 GM/DL (3.2-5.2); BILIRUBIN,TOTAL 0.2 MG/DL (0.2-1.0); CALCIUM LEVEL 9.2 MG/DL (8.8-10.2); CHOLESTEROL RISK RATIO 2.329 (<5); CREATININE FOR GFR 1.72 MG/DL (0.55-1.30); GLOMERULAR FILTRATION RATE 30.9 (>39); POTASSIUM SERUM 3.8 MEQ/L (3.5-5.1)
[2020-11-17 16:50] LABS: HEMOGLOBIN A1c 6.9 %
[2020-11-17 16:58] LABS: CREATININE, URINE 40.8 MG/DL; MALB URINE SIEMENS < 5.0 MG/L; MAU/CREAT RATIO 12.2 MCG/MG (0.0-30.0)
== END ==
LOC: M WUC 13:43
PROVIDERS: ATTEND Family Medicine
DX: E11.69 Type 2 diabetes mellitus with other specified complication (principal)

== ENCOUNTER → 2020-12-24 | Outpatient (CLI) | payer MEDICARE, BC, OTHER ==
--- NOTE | 2020-12-24 12:08 | REP ---
INDICATION: SMOKER PLEASE COMPARE TO 12/12/19 STUDY PER ORDER. COMPARISON: Multiple all standard noncontrast enhanced helical CTs in the latest prior 12/12/2019 TECHNIQUE: Axial noncontrast images from the thoracic inlet to the upper abdomen using low-dose lung screening technique (LDCT). As per the protocol only lung window images were sent to the read station for interpretation. FINDINGS: The nodule in the apicoposterior segment of the left upper lobe is unchanged. This is the dominant parenchymal nodule. Once again, there are numerous 3 and 4 mm size nodules scattered throughout both lung johnston. These are too numerous to count or individually assess. All appear stable. No definite new abnormal nodules, masses, or opacities have developed. There is cylindrical bronchiectasis status quo. There is a right upper lobe parenchymal bulla status quo. Grossly, there is no significant change in appearance of the mediastinum or pulmonary vahe. Grossly, there is no significant change in the appearance of the imaged upper abdomen or imaged osseous structures. IMPRESSION: Stable CT examination the chest with findings as described above. Follow-up as per the revised Fleischner society criteria. <Electronically signed by Jonn Trujillo > 12/24/20 [id number]
== END ==
LOC: M RAD 10:41
PROVIDERS: ATTEND Internal Medicine Pulmonary Disease
DX: Z12.2 Encounter for screening for malignant neoplasm of respiratory organs (principal); Z87.891 Personal history of nicotine dependence

== ENCOUNTER → 2021-01-18 | Outpatient (CLI) | payer MEDICARE, BC, OTHER | LOC: M WHC 11:42 | PROVIDERS: ATTEND Nurse Practitioner Family | DX: Z12.31 Encounter for screening mammogram for malignant neoplasm of breast (principal); Z13.820 Encounter for screening for osteoporosis; Z78.0 Asymptomatic menopausal state; Z85.9 Personal history of malignant neoplasm, unspecified; M85.852 Other specified disorders of bone density and structure, left thigh; M85.88 Other specified disorders of bone density and structure, other site ==

== ENCOUNTER → 2021-01-22 | Outpatient (CLI) | payer MEDICARE, BC, OTHER ==
[2021-01-22 16:25] LABS: BASO % 0.1 % (0.0-1.0); EOS # 0.2 10^3/uL (0.0-0.5); EOS % 1.6 % (0.0-3.0); HEMATOCRIT 41.2 % (36.0-47.0); HEMOGLOBIN 12.5 g/dl (12.0-15.5); MEAN CORPUSCULAR HEMOGLOBIN 27.8 pg (27.0-33.0); MEAN CORPUSCULAR HGB CONC 30.3 g/dl (32.0-36.5); MEAN CORPUSCULAR VOLUME 91.6 fl (80.0-96.0); NEUTROPHILS # 9.3 10^3/uL (1.5-8.5); NEUTROPHILS % 64.8 % (36.0-66.0); PLATELET COUNT, AUTOMATED 407 10^3/uL (150-450); WHITE BLOOD COUNT 14.3 10^3/uL (4.0-10.0)
[2021-01-22 16:45] LABS: ALBUMIN 3.7 GM/DL (3.2-5.2); ALT/SGPT 25 U/L (12-78); BILIRUBIN,DIRECT < 0.1 MG/DL (0.0-0.2); BILIRUBIN,TOTAL 0.4 MG/DL (0.2-1.0); BLOOD UREA NITROGEN 26 MG/DL (7-18); CALCIUM LEVEL 9.1 MG/DL (8.8-10.2); CARBON DIOXIDE LEVEL 36 MEQ/L (21-32); CHLORIDE LEVEL 100 MEQ/L (98-107); CREATININE FOR GFR 1.74 MG/DL (0.55-1.30); GLOMERULAR FILTRATION RATE 30.4 (>39); GLUCOSE, FASTING 120 MG/DL (70-100); POTASSIUM SERUM 3.8 MEQ/L (3.5-5.1); SODIUM LEVEL 141 MEQ/L (136-145); TOTAL PROTEIN 7.3 GM/DL (6.4-8.2)
[2021-01-22 16:53] LABS: ERYTHROCYTE SEDIMENTATION RATE 13 mm/hr (0-30)
[2021-01-22 17:12] LABS: MONO # 1.7 10^3/uL (0.0-0.8)
== END ==
LOC: M WUC 13:22
PROVIDERS: ATTEND Internal Medicine
DX: M05.79 Rheumatoid arthritis with rheumatoid factor of multiple sites without organ or systems involvement (principal)

== ENCOUNTER → 2021-03-19 | Outpatient (REF) | payer MEDICARE, BC, OTHER | LOC: M LAB REF 16:42 | PROVIDERS: ATTEND Nurse Practitioner Family | DX: E83.42 Hypomagnesemia (principal) ==

== ENCOUNTER → 2021-04-14 | Outpatient (CLI) | payer MEDICARE, BC, OTHER ==
[~2021-04-14] MED LIST changes: +ALBU8.5H; +BREO1INH; +ECOT81TA5 PO; +HYDR200T3; +IRON1TAB2 PO; +ONDA8TAB8 PO; +TRES1INJ2 SQ; +VITA100093 PO; +VITMTA PO
== END ==
LOC: M LABSMTC 09:39
PROVIDERS: ATTEND Anesthesiology
DX: Z01.812 Encounter for preprocedural laboratory examination (principal); Z20.822 Contact with and (suspected) exposure to COVID-19

== ENCOUNTER 2021-04-19 10:13 | Day surgery (SDC) | payer MEDICARE, BC, OTHER ==
[~2021-04-19] VITALS: Ht 152.4 cm; Wt 75.2 kg
[~2021-04-19 10:13] MED LIST changes: +NS 1,000 ML IV ONE
[2021-04-19] MEDS ORDERED: ALBUTEROL 6.7GM INHALER **FOR ANES. CART/OMNICELL ONLY As Ordered ONE ×2 (12:57→12:58)
[2021-04-19] MEDS ORDERED: LIDOCAINE 2% 100MG/5ML SDV (FOR ANES.) As Ordered ONE (12:58)
[2021-04-19] MEDS ORDERED: propofoL 200 MG/20 ML VIAL As Ordered ONE (12:58)
[2021-04-19 13:50] VITALS: BP 138/62
== END 2021-04-19 14:05 | disposition home or self-care (01) ==
LOC: M OPP 10:13
PROVIDERS: ATTEND Internal Medicine Gastroenterology
DX: Z12.11 Encounter for screening for malignant neoplasm of colon (principal); Z86.010 Personal history of colon polyps; C18.9 Malignant neoplasm of colon, unspecified; K57.30 Diverticulosis of large intestine without perforation or abscess without bleeding; K64.0 First degree hemorrhoids; Z79.4 Long term (current) use of insulin; Z79.82 Long term (current) use of aspirin; Z79.899 Other long term (current) drug therapy; Z88.2 Allergy status to sulfonamides

== ENCOUNTER → 2021-04-28 | Outpatient (CLI) | payer MEDICARE, BC, OTHER ==
[~2021-04-28] MED LIST changes: -NS 1,000 ML IV ONE
== END ==
LOC: M LABSMTC 10:53
PROVIDERS: ATTEND Anesthesiology
DX: Z11.52 Encounter for screening for COVID-19 (principal)

== ENCOUNTER 2021-05-03 06:25 | Day surgery (SDC) | payer MEDICARE, BC, OTHER ==
[~2021-05-03] VITALS: Ht 154.9 cm; Wt 75.7 kg
[~2021-05-03 06:25] MED LIST changes: +NS 1,000 ML IV ONE
[2021-05-03] MEDS ORDERED: LIDOCAINE 2% 100MG/5ML SDV (FOR ANES.) As Ordered ONE (06:52)
[2021-05-03] MEDS ORDERED: propofoL 200 MG/20 ML VIAL As Ordered ONE ×2 (06:52→07:53)
[2021-05-03 08:39] VITALS: BP 142/64
== END 2021-05-03 08:45 | disposition home or self-care (01) ==
LOC: M OPP 06:25
PROVIDERS: ATTEND Internal Medicine Gastroenterology
DX: Z12.11 Encounter for screening for malignant neoplasm of colon (principal); Z86.03 Personal history of neoplasm of uncertain behavior; Z86.010 Personal history of colon polyps; K63.5 Polyp of colon; K57.30 Diverticulosis of large intestine without perforation or abscess without bleeding; Z79.82 Long term (current) use of aspirin; Z79.899 Other long term (current) drug therapy; Z88.2 Allergy status to sulfonamides; F17.210 Nicotine dependence, cigarettes, uncomplicated

== ENCOUNTER → 2021-05-18 | Outpatient (CLI) | payer MEDICARE, BC, OTHER ==
[~2021-05-18] MED LIST changes: -NS 1,000 ML IV ONE
[2021-05-18 18:55] LABS: HEMOGLOBIN A1c 6.8 %
== END ==
LOC: M WUC 13:19
PROVIDERS: ATTEND Nurse Practitioner Family
DX: E11.69 Type 2 diabetes mellitus with other specified complication (principal)

== ENCOUNTER → 2021-05-18 | Outpatient (CLI) | payer MEDICARE, BC, OTHER ==
[2021-05-18 16:18] LABS: BASO # 0.1 10^3/uL (0.0-0.2); EOS # 0.4 10^3/uL (0.0-0.5); EOS % 4.3 % (0.0-3.0); HEMATOCRIT 37.9 % (36.0-47.0); HEMOGLOBIN 11.3 g/dl (12.0-15.5); LYMPH # 2.8 10^3/uL (1.5-5.0); LYMPH % 33.5 % (24.0-44.0); MEAN CORPUSCULAR HEMOGLOBIN 26.9 pg (27.0-33.0); MEAN CORPUSCULAR HGB CONC 29.8 g/dl (32.0-36.5); MEAN CORPUSCULAR VOLUME 90.2 fl (80.0-96.0); MONO # 1.1 10^3/uL (0.0-0.8); MONO % 13.5 % (2.0-8.0); NEUTROPHILS # 3.9 10^3/uL (1.5-8.5); NEUTROPHILS % 47.3 % (36.0-66.0); PLATELET COUNT, AUTOMATED 361 10^3/uL (150-450); WHITE BLOOD COUNT 8.2 10^3/uL (4.0-10.0)
[2021-05-18 16:45] LABS: ALBUMIN 3.3 GM/DL (3.2-5.2); ALT/SGPT 18 U/L (12-78); BILIRUBIN,DIRECT < 0.1 MG/DL (0.0-0.2); BILIRUBIN,TOTAL 0.3 MG/DL (0.2-1.0); BLOOD UREA NITROGEN 13 MG/DL (7-18); CALCIUM LEVEL 8.8 MG/DL (8.8-10.2); CARBON DIOXIDE LEVEL 35 MEQ/L (21-32); CHLORIDE LEVEL 103 MEQ/L (98-107); CREATININE FOR GFR 1.43 MG/DL (0.55-1.30); GLOMERULAR FILTRATION RATE 38.2 (>39); GLUCOSE, FASTING 119 MG/DL (70-100); POTASSIUM SERUM 4.5 MEQ/L (3.5-5.1); SODIUM LEVEL 140 MEQ/L (136-145); TOTAL PROTEIN 6.6 GM/DL (6.4-8.2)
[2021-05-18 16:56] LABS: ERYTHROCYTE SEDIMENTATION RATE 17 mm/hr (0-30)
== END ==
LOC: M WUC 13:22
PROVIDERS: ATTEND Internal Medicine
DX: M05.79 Rheumatoid arthritis with rheumatoid factor of multiple sites without organ or systems involvement (principal)

== ENCOUNTER → 2021-06-04 | Outpatient (CLI) | payer MEDICARE, BC, OTHER ==
[~2021-06-04] MED LIST changes: -BREO1INH; +BREO1INH INH; +GASTROGRAFIN SOLUTION 30ML (Q9963) As Ordered ONE; +PLAQ200T4 PO; +evista PO
== END ==
LOC: M RAD 11:53
PROVIDERS: ATTEND Internal Medicine Medical Oncology
DX: C18.9 Malignant neoplasm of colon, unspecified (principal)
CPT/HCPCS: 74176; Q9963

== ENCOUNTER 2021-07-26 17:06 | Inpatient (IN) | payer MEDICARE, BC, OTHER ==
[~2021-07-26] VITALS: Ht 152.4 cm; Wt 75.2 kg
[~2021-07-26 17:06] MED LIST changes: -GASTROGRAFIN SOLUTION 30ML (Q9963) As Ordered ONE
[2021-07-26] MEDS ORDERED: dexameTHASONE 20MG/5ML VIAL (J1100 PER 1MG) IV ONE (17:45)
[2021-07-26 18:04] LABS: VENOUS BASE EXCESS 2.6 (-2.0-2.0); VENOUS HCO3 30.5 MEQ/L (23.0-27.0); VENOUS O2 SATURATION 90.3 % (60.0-80.0); VENOUS PARTIAL PRESSURE CO2 63.4 mmHg (38.0-50.0); VENOUS STANDARD HCO3 26.6 MEQ/L; VENOUS TOTAL CO2 32.4 MEQ/L (24.0-28.0)
[2021-07-26] MEDS: COMBIVENT RESPIMAT 100-20MCG INHALER 4GM INH SCH ×3 (18:05→18:28)
[2021-07-26 18:11] LABS: BASO % 0.3 % (0.0-1.0); EOS % 0.7 % (0.0-3.0); HEMATOCRIT 37.4 % (36.0-47.0); HEMOGLOBIN 11.3 g/dl (12.0-15.5); LYMPH # 0.9 10^3/uL (1.5-5.0); LYMPH % 15.9 % (24.0-44.0); MEAN CORPUSCULAR HEMOGLOBIN 26.3 pg (27.0-33.0); MEAN CORPUSCULAR HGB CONC 30.2 g/dl (32.0-36.5); MEAN CORPUSCULAR VOLUME 87.2 fl (80.0-96.0); MONO # 0.5 10^3/uL (0.0-0.8); MONO % 8.3 % (2.0-8.0); NEUTROPHILS # 4.4 10^3/uL (1.5-8.5); NEUTROPHILS % 74.6 % (36.0-66.0); PLATELET COUNT, AUTOMATED 320 10^3/uL (150-450); RED BLOOD COUNT 4.29 10^6/uL (4.00-5.40); WHITE BLOOD COUNT 5.9 10^3/uL (4.0-10.0)
[2021-07-26 18:35] LABS: CK-MB VALUE MASS 2.6 NG/ML (<3.6); MB/CK RELATIVE INDEX 1.86 (< OR =4)
[2021-07-26] MEDS ORDERED: RALO1TAB PO (18:37)
[2021-07-26] MEDS ORDERED: SIMV20TA22 PO (18:37)
[2021-07-26] MEDS ORDERED: RETA0.5E OU (18:38)
[2021-07-26] MEDS ORDERED: HOME MED LIST COMPLETE! XX SCH (18:40)
[2021-07-26 18:50] LABS: ALBUMIN 3.3 GM/DL (3.2-5.2); ALT/SGPT 20 U/L (12-78); BILIRUBIN,DIRECT < 0.1 MG/DL (0.0-0.2); BILIRUBIN,TOTAL 0.4 MG/DL (0.2-1.0); BLOOD UREA NITROGEN 7 MG/DL (7-18); CALCIUM LEVEL 8.7 MG/DL (8.8-10.2); CARBON DIOXIDE LEVEL 30 MEQ/L (21-32); CHLORIDE LEVEL 104 MEQ/L (98-107); CREATININE FOR GFR 1.09 MG/DL (0.55-1.30); GLOMERULAR FILTRATION RATE 52.2 (>39); GLUCOSE, FASTING 123 MG/DL (70-100); NT-PRO BNP 1098 PG/ML (<125); POTASSIUM SERUM 4.6 MEQ/L (3.5-5.1); SODIUM LEVEL 139 MEQ/L (136-145)
[2021-07-26 19:50] LABS: CK-MB VALUE MASS 2.8 NG/ML (<3.6); MB/CK RELATIVE INDEX 2.46 (< OR =4)
[2021-07-26] MEDS: INSULIN LISPRO (NovoLOG) PER UNIT SC SCH (21:00)
[2021-07-26] MEDS ORDERED: GLUCAGON INJ 1MG VIAL SC PRN (21:50)
[2021-07-26] MEDS ORDERED: GLUCOSE 4GM CHEW TABLET PO PRN (21:50)
[2021-07-26] MEDS ORDERED: MOM 30ML SUSPENSION UDC PO PRN (21:50)
[2021-07-26] MEDS ORDERED: DEXTROSE 50% 50 ML SYRINGE IV PRN (21:50)
[2021-07-26] MEDS ORDERED: MAALOX 30 ML SUSP *UDC PO PRN (21:50)
[2021-07-26 23:10] VITALS: BP 168/83
[2021-07-26] MEDS: AZITHROMYCIN INJ 500 MG, VIAL MATE ADAPTER 1 EACH in NS 250 ML IV SCH (23:36)
[2021-07-26] MEDS: SIMVASTATIN 20 MG TAB PO SCH (23:36)
[2021-07-27] VITALS (7 sets, daily range): BP systolic 138–145; BP diastolic 69–75; O2SAT 83–97
[2021-07-27] MEDS: ONDANSETRON 4MG ORAL DISINTEGRATING TAB PO PRN ×2 (00:30→20:48)
[2021-07-27] MEDS: methylPREDNISolone 125MG 2ML VIAL IV SCH ×3 (01:01→17:15)
[2021-07-27] MEDS: IPRATROPIUM 0.5MG/ALBUTEROL 2.5MG INH SOL UD 3ML (DUONEB) NEB SCH ×5 (01:20→20:00)
[2021-07-27] MEDS: HEPARIN SOD (PORCINE) 5000UNITS/ML 1ML VIAL/SYRINGE SC SCH ×3 (05:08→20:47)
[2021-07-27] MEDS: SYMBICORT 160/4.5MCG INHALER 6GM INH SCH ×2 (08:00→20:01)
[2021-07-27] MEDS: ASPIRIN 81MG ENTERIC TABLET PO SCH (08:21)
[2021-07-27] MEDS: PANTOPRAZOLE 40MG TAB (PROTONIX) PO SCH ×2 (08:22→20:47)
[2021-07-27] MEDS: TORSEMIDE 20 MG TAB PO SCH ×2 (08:22→17:15)
[2021-07-27] MEDS: MULTIVITAMINS/MINERALS THERAP 1 TAB PO SCH (08:22)
[2021-07-27] MEDS: OMEGA-3 1000MG CAPSULE PO SCH ×2 (08:22→20:47)
[2021-07-27] MEDS: ACETAMINOPHEN TAB 650MG DOSE (2X325MG) PO PRN ×2 (08:23→17:18)
[2021-07-27] MEDS: INSULIN LISPRO (NovoLOG) PER UNIT SC SCH ×4 (09:06→20:37)
[2021-07-27] MEDS: LEVEMIR (INSULIN DETEMIR) 1 UNITS/0.01ML SC SCH (20:47)
[2021-07-27] MEDS: SIMVASTATIN 20 MG TAB PO SCH (20:47)
[2021-07-27] MEDS: guaiFENesin ER 600 MG TAB PO SCH (20:47)
[2021-07-27] MEDS: AZITHROMYCIN INJ 500 MG, VIAL MATE ADAPTER 1 EACH in NS 250 ML IV SCH (22:00)
[2021-07-28] MEDS ORDERED: VANCOMYCIN HCL 1,000 MG, VIAL MATE ADAPTER 1 EACH in NS 250 ML IV SCH ×2 (00:25→16:00)
[2021-07-28] MEDS ORDERED: VANCOMYCIN HCL 750 MG, VIAL MATE ADAPTER 1 EACH in NS 250 ML IV ONE ×2 (01:00→02:00)
[2021-07-28] MEDS: methylPREDNISolone 125MG 2ML VIAL IV SCH ×3 (01:04→17:38)
[2021-07-28] MEDS: ONDANSETRON 4MG ORAL DISINTEGRATING TAB PO PRN ×3 (02:48→23:05)
[2021-07-28] MEDS: IPRATROPIUM 0.5MG/ALBUTEROL 2.5MG INH SOL UD 3ML (DUONEB) NEB SCH ×6 (04:00→18:53)
[2021-07-28] MEDS: HEPARIN SOD (PORCINE) 5000UNITS/ML 1ML VIAL/SYRINGE SC SCH ×3 (05:05→20:23)
[2021-07-28 06:00] VITALS: BP 140/74
[2021-07-28] MEDS: SYMBICORT 160/4.5MCG INHALER 6GM INH SCH ×2 (07:10→18:53)
[2021-07-28] MEDS: BENZONATATE 100MG CAPSULE PO SCH ×3 (09:00→20:22)
[2021-07-28] MEDS: MULTIVITAMINS/MINERALS THERAP 1 TAB PO SCH (09:02)
[2021-07-28] MEDS: ASPIRIN 81MG ENTERIC TABLET PO SCH (09:03)
[2021-07-28] MEDS: PANTOPRAZOLE 40MG TAB (PROTONIX) PO SCH ×2 (09:03→20:22)
[2021-07-28] MEDS: OMEGA-3 1000MG CAPSULE PO SCH ×2 (09:04→20:22)
[2021-07-28] MEDS: TORSEMIDE 20 MG TAB PO SCH (09:04)
[2021-07-28] MEDS: guaiFENesin ER 600 MG TAB PO SCH ×2 (09:07→20:22)
[2021-07-28] MEDS: INSULIN LISPRO (NovoLOG) PER UNIT SC SCH ×4 (09:22→20:23)
[2021-07-28] MEDS: ACETAMINOPHEN TAB 650MG DOSE (2X325MG) PO PRN (09:26)
[2021-07-28 09:42] LABS: HEMATOCRIT 36.5 % (36.0-47.0); HEMOGLOBIN 10.9 g/dl (12.0-15.5); MEAN CORPUSCULAR HEMOGLOBIN 26.7 pg (27.0-33.0); MEAN CORPUSCULAR HGB CONC 29.9 g/dl (32.0-36.5); MEAN CORPUSCULAR VOLUME 89.2 fl (80.0-96.0); PLATELET COUNT, AUTOMATED 366 10^3/uL (150-450); RED BLOOD COUNT 4.09 10^6/uL (4.00-5.40); WHITE BLOOD COUNT 6.5 10^3/uL (4.0-10.0)
[2021-07-28 10:09] LABS: CALCIUM LEVEL 8.3 MG/DL (8.8-10.2); CREATININE FOR GFR 1.43 MG/DL (0.55-1.30); GLOMERULAR FILTRATION RATE 38.2 (>39); MAGNESIUM LEVEL 2.2 MG/DL (1.8-2.4); POTASSIUM SERUM 4.4 MEQ/L (3.5-5.1)
[2021-07-28 14:00] VITALS: BP 137/57
[2021-07-28 15:33] VITALS: O2SAT 93
[2021-07-28] MEDS: SIMVASTATIN 20 MG TAB PO SCH (20:22)
[2021-07-28] MEDS: LEVEMIR (INSULIN DETEMIR) 1 UNITS/0.01ML SC SCH (20:23)
[2021-07-28 22:00] VITALS: BP 133/77
[2021-07-28] MEDS: AZITHROMYCIN INJ 500 MG, VIAL MATE ADAPTER 1 EACH in NS 250 ML IV SCH (22:04)
[2021-07-29] MEDS: methylPREDNISolone 125MG 2ML VIAL IV SCH ×3 (01:00→17:02)
[2021-07-29] MEDS: HEPARIN SOD (PORCINE) 5000UNITS/ML 1ML VIAL/SYRINGE SC SCH ×3 (05:04→21:27)
[2021-07-29] MEDS: IPRATROPIUM 0.5MG/ALBUTEROL 2.5MG INH SOL UD 3ML (DUONEB) NEB SCH ×7 (05:04→23:27)
[2021-07-29 06:00] VITALS: BP 114/67
[2021-07-29 06:09] LABS: HEMATOCRIT 38.1 % (36.0-47.0); HEMOGLOBIN 11.3 g/dl (12.0-15.5); MEAN CORPUSCULAR HEMOGLOBIN 26.5 pg (27.0-33.0); MEAN CORPUSCULAR HGB CONC 29.7 g/dl (32.0-36.5); MEAN CORPUSCULAR VOLUME 89.2 fl (80.0-96.0); PLATELET COUNT, AUTOMATED 393 10^3/uL (150-450); RED BLOOD COUNT 4.27 10^6/uL (4.00-5.40)
[2021-07-29 06:40] LABS: CALCIUM LEVEL 8.9 MG/DL (8.8-10.2); CREATININE FOR GFR 1.35 MG/DL (0.55-1.30); GLOMERULAR FILTRATION RATE 40.8 (>39); MAGNESIUM LEVEL 2.5 MG/DL (1.8-2.4); POTASSIUM SERUM 4.2 MEQ/L (3.5-5.1)
[2021-07-29] MEDS: SYMBICORT 160/4.5MCG INHALER 6GM INH SCH ×2 (07:50→19:14)
[2021-07-29] MEDS: ASPIRIN 81MG ENTERIC TABLET PO SCH (08:29)
[2021-07-29] MEDS: MULTIVITAMINS/MINERALS THERAP 1 TAB PO SCH (08:29)
[2021-07-29] MEDS: OMEGA-3 1000MG CAPSULE PO SCH ×2 (08:29→21:27)
[2021-07-29] MEDS: BENZONATATE 100MG CAPSULE PO SCH ×3 (08:29→21:00)
[2021-07-29] MEDS: PANTOPRAZOLE 40MG TAB (PROTONIX) PO SCH ×2 (08:30→21:27)
[2021-07-29] MEDS: guaiFENesin ER 600 MG TAB PO SCH ×2 (08:30→21:00)
[2021-07-29] MEDS: INSULIN LISPRO (NovoLOG) PER UNIT SC SCH ×4 (08:33→21:00)
[2021-07-29 09:00] VITALS: O2SAT 90
[2021-07-29] MEDS ORDERED: MUCI1TAB16 PO (10:19)
[2021-07-29] MEDS ORDERED: BENZ-18 PO (10:19)
[2021-07-29] MEDS ORDERED: PRED20TA PO (10:19)
[2021-07-29 14:00] VITALS: BP 134/71
[2021-07-29] MEDS: ACETAMINOPHEN TAB 650MG DOSE (2X325MG) PO PRN (17:11)
[2021-07-29] MEDS: SIMVASTATIN 20 MG TAB PO SCH (21:27)
[2021-07-29] MEDS: ONDANSETRON 4MG ORAL DISINTEGRATING TAB PO PRN (21:27)
[2021-07-29] MEDS: LEVEMIR (INSULIN DETEMIR) 1 UNITS/0.01ML SC SCH (21:28)
[2021-07-29 22:00] VITALS: BP 134/71
[2021-07-30 01:03] VITALS: O2SAT 91
[2021-07-30] MEDS: methylPREDNISolone 125MG 2ML VIAL IV SCH ×2 (03:03→09:12)
[2021-07-30] MEDS: IPRATROPIUM 0.5MG/ALBUTEROL 2.5MG INH SOL UD 3ML (DUONEB) NEB SCH ×4 (03:14→15:59)
[2021-07-30] MEDS: HEPARIN SOD (PORCINE) 5000UNITS/ML 1ML VIAL/SYRINGE SC SCH ×2 (05:57→14:00)
[2021-07-30 06:00] VITALS: BP 144/76
[2021-07-30 06:43] LABS: HEMATOCRIT 37.1 % (36.0-47.0); HEMOGLOBIN 11.1 g/dl (12.0-15.5); MEAN CORPUSCULAR HEMOGLOBIN 26.2 pg (27.0-33.0); MEAN CORPUSCULAR HGB CONC 29.9 g/dl (32.0-36.5); MEAN CORPUSCULAR VOLUME 87.7 fl (80.0-96.0); PLATELET COUNT, AUTOMATED 391 10^3/uL (150-450); RED BLOOD COUNT 4.23 10^6/uL (4.00-5.40)
[2021-07-30 07:11] LABS: CALCIUM LEVEL 9.1 MG/DL (8.8-10.2); CREATININE FOR GFR 1.14 MG/DL (0.55-1.30); GLOMERULAR FILTRATION RATE 49.6 (>39); MAGNESIUM LEVEL 2.8 MG/DL (1.8-2.4); POTASSIUM SERUM 4.2 MEQ/L (3.5-5.1)
[2021-07-30] MEDS: SYMBICORT 160/4.5MCG INHALER 6GM INH SCH (08:48)
[2021-07-30] MEDS: BENZONATATE 100MG CAPSULE PO SCH ×3 (09:00→15:22)
[2021-07-30] MEDS: INSULIN LISPRO (NovoLOG) PER UNIT SC SCH ×2 (09:11→12:42)
[2021-07-30] MEDS: ASPIRIN 81MG ENTERIC TABLET PO SCH (09:12)
[2021-07-30] MEDS: guaiFENesin ER 600 MG TAB PO SCH (09:12)
[2021-07-30] MEDS: OMEGA-3 1000MG CAPSULE PO SCH (09:12)
[2021-07-30] MEDS: MULTIVITAMINS/MINERALS THERAP 1 TAB PO SCH (09:12)
[2021-07-30] MEDS: PANTOPRAZOLE 40MG TAB (PROTONIX) PO SCH (09:12)
[2021-07-30 09:27] VITALS: O2SAT 93
[2021-07-30] MEDS ORDERED: PRED10TA2 PO (10:44)
[2021-07-30 14:00] VITALS: BP 151/71
== END 2021-07-30 17:54 | disposition home health service (06) | DRG 190 ==
LOC: M ED 17:06 → EDBD 17:06 → M ED INP 21:48 → M MSPAV 23:08
PROVIDERS: ADMIT Family Medicine; ATTEND Internal Medicine
DX: J44.1 Chronic obstructive pulmonary disease with (acute) exacerbation (principal); J96.21 Acute and chronic respiratory failure with hypoxia; I50.32 Chronic diastolic (congestive) heart failure; R60.9 Edema, unspecified; K21.9 Gastro-esophageal reflux disease without esophagitis; M06.9 Rheumatoid arthritis, unspecified; E78.5 Hyperlipidemia, unspecified; E11.43 Type 2 diabetes mellitus with diabetic autonomic (poly)neuropathy; E11.22 Type 2 diabetes mellitus with diabetic chronic kidney disease; N18.9 Chronic kidney disease, unspecified; Z85.41 Personal history of malignant neoplasm of cervix uteri; B34.8 Other viral infections of unspecified site; D50.9 Iron deficiency anemia, unspecified; Z85.828 Personal history of other malignant neoplasm of skin; Z79.899 Other long term (current) drug therapy; Z79.82 Long term (current) use of aspirin; Z88.2 Allergy status to sulfonamides; Z87.891 Personal history of nicotine dependence

== ENCOUNTER → 2021-09-30 | Outpatient (REF) | payer MEDICARE, BC, OTHER ==
[~2021-09-30] MED LIST changes: +BENZ-18 PO; +MUCI1TAB16 PO; +PRED10TA2 PO; +PRED20TA PO; +RETA0.5E OU; +SIMV20TA22 PO
[2021-09-30 18:13] LABS: PERCENT SATURATION 11.4 % (13.2-45.0)
== END ==
LOC: M LAB REF 16:47
PROVIDERS: ATTEND Nurse Practitioner Family
DX: D50.9 Iron deficiency anemia, unspecified (principal)

== ENCOUNTER → 2021-11-19 | Outpatient (CLI) | payer MEDICARE, BC, OTHER ==
[2021-11-19 11:52] LABS: BASO # 0.1 10^3/uL (0.0-0.2); BASO % 0.6 % (0.0-1.0); EOS # 0.5 10^3/uL (0.0-0.5); EOS % 5.7 % (0.0-3.0); HEMATOCRIT 31.8 % (36.0-47.0); HEMOGLOBIN 9.7 g/dl (12.0-15.5); LYMPH # 2.7 10^3/uL (1.5-5.0); LYMPH % 32.8 % (24.0-44.0); MEAN CORPUSCULAR HEMOGLOBIN 28.8 pg (27.0-33.0); MEAN CORPUSCULAR HGB CONC 30.5 g/dl (32.0-36.5); MEAN CORPUSCULAR VOLUME 94.4 fl (80.0-96.0); MONO # 1.1 10^3/uL (0.0-0.8); NEUTROPHILS # 3.9 10^3/uL (1.5-8.5); NEUTROPHILS % 47.5 % (36.0-66.0); PLATELET COUNT, AUTOMATED 428 10^3/uL (150-450); RED BLOOD COUNT 3.37 10^6/uL (4.00-5.40); WHITE BLOOD COUNT 8.1 10^3/uL (4.0-10.0)
[2021-11-19 12:47] LABS: ALBUMIN 3.5 GM/DL (3.2-5.2); BILIRUBIN,TOTAL 0.3 MG/DL (0.2-1.0); CALCIUM LEVEL 9.7 MG/DL (8.8-10.2); CHOLESTEROL RISK RATIO 1.968 (<5); CREATININE FOR GFR 1.77 MG/DL (0.55-1.30); GLOMERULAR FILTRATION RATE 29.8 (>39); POTASSIUM SERUM 3.9 MEQ/L (3.5-5.1)
[2021-11-19 16:55] LABS: HEMOGLOBIN A1c 6.3 %
== END ==
LOC: M WUC 08:29
PROVIDERS: ATTEND Family Medicine
DX: E11.69 Type 2 diabetes mellitus with other specified complication (principal)

== ENCOUNTER → 2021-11-25 | Outpatient (REF) | payer MEDICARE, OTHER ==
[2021-11-25 20:09] LABS: CREATININE, URINE 24.6 MG/DL; MALB URINE SIEMENS < 5.0 MG/L; MAU/CREAT RATIO 20.3 MCG/MG (0.0-30.0)
== END ==
LOC: M LAB REF 16:51
PROVIDERS: ATTEND Nurse Practitioner Family
DX: E11.22 Type 2 diabetes mellitus with diabetic chronic kidney disease (principal)

== ENCOUNTER → 2022-01-13 | Outpatient (REF) | payer MEDICARE, OTHER ==
[2022-01-13 19:02] LABS: PERCENT SATURATION 3.8 % (13.2-45.0)
== END ==
LOC: M LAB REF 16:54
PROVIDERS: ATTEND Nurse Practitioner Family
DX: D50.9 Iron deficiency anemia, unspecified (principal)

== ENCOUNTER 2022-01-24 11:01 | Outpatient (CLI) | payer MEDICARE, BC, OTHER ==
[~2022-01-24] VITALS: Ht 156.2 cm; Wt 75.8 kg
[~2022-01-24 11:01] MED LIST changes: +ALBUTEROL SULFATE 2.5MG/0.5ML INH NEB SOLN INH PRN; +EPINEPHrine INJ 1 MG/ML 1ML AMP IM PRN; +diphenhydrAMINE 50MG/ML VIAL IV PRN; +methylPREDNISolone 125MG 2ML VIAL IV PRN
[2022-01-24] MEDS ORDERED: FERRIC CARBOXYMALTOSE INJ 750 MG in NS 250 ML (>50kg) IV ONE ×3 (11:30)
[2022-01-24] MEDS ORDERED: NS 1,000 ML IV SCH (11:30)
[2022-01-24 11:31] VITALS: BP 145/78
[2022-01-24 12:45] VITALS: BP 128/58
== END 2022-01-24 12:45 | disposition home or self-care (01) ==
LOC: M INFU 11:01
PROVIDERS: ATTEND Internal Medicine Nephrology
DX: D50.9 Iron deficiency anemia, unspecified (principal)
CPT/HCPCS: 96365; J1439

== ENCOUNTER → 2022-02-02 | Outpatient (CLI) | payer MEDICARE, BC, OTHER ==
[~2022-02-02] VITALS: Ht 156.2 cm; Wt 75.8 kg
[~2022-02-02] MED LIST changes: +FERRIC CARBOXYMALTOSE INJ 750 MG in NS 250 ML (>50kg) IV ONE; +NS 1,000 ML IV SCH
[2022-02-02 11:15] VITALS: BP 134/63
[2022-02-02 12:40] VITALS: BP 137/88
== END ==
LOC: M INFU 11:10
PROVIDERS: ATTEND Internal Medicine Nephrology
DX: D50.9 Iron deficiency anemia, unspecified (principal); Z88.2 Allergy status to sulfonamides
CPT/HCPCS: 96365; J1439

== ENCOUNTER 2022-02-11 03:38 | Inpatient (IN) | payer MEDICARE, BC, OTHER ==
[~2022-02-11] VITALS: Ht 149.9 cm; Wt 73.4 kg
[~2022-02-11 03:38] MED LIST changes: -ALBUTEROL SULFATE 2.5MG/0.5ML INH NEB SOLN INH PRN; -EPINEPHrine INJ 1 MG/ML 1ML AMP IM PRN; -FERRIC CARBOXYMALTOSE INJ 750 MG in NS 250 ML (>50kg) IV ONE; -NS 1,000 ML IV SCH; +TRES1INJ2 SC; -TRES1INJ2 SQ; -diphenhydrAMINE 50MG/ML VIAL IV PRN; -methylPREDNISolone 125MG 2ML VIAL IV PRN
[2022-02-11] MEDS ORDERED: MORPHINE 4 MG/ML 1ML VIAL IV ONE ×2 (04:10→05:10)
[2022-02-11] MEDS: KETOROLAC 60MG 2ML VIAL IM ONE ×2 (04:15→04:42)
[2022-02-11] MEDS ORDERED: ONDANSETRON 4MG 2ML VIAL As Ordered ONE (05:13)
[2022-02-11] MEDS ORDERED: ONDANSETRON 4MG 2ML VIAL IV ONE (05:15)
[2022-02-11 06:18] LABS: MAGNESIUM LEVEL 2.1 MG/DL (1.8-2.4)
[2022-02-11 06:23] LABS: CREATININE FOR GFR 1.53 MG/DL (0.55-1.30); GLOMERULAR FILTRATION RATE 35.2 (>39); POTASSIUM SERUM 4.6 MMOL/L (3.5-5.1)
[2022-02-11] MEDS ORDERED: KETOROLAC 30 MG/ML 1ML VIAL IV ONE (06:40)
[2022-02-11] MEDS ORDERED: diazePAM 10MG/2ML SYRINGE IV ONE (07:05)
[2022-02-11] MEDS ORDERED: ONDA-196 PO (07:06)
[2022-02-11] MEDS ORDERED: PSEU30TA86 PO (07:06)
[2022-02-11] MEDS ORDERED: METO25TA PO (07:06)
[2022-02-11] MEDS ORDERED: POLYOPD OU (07:06)
[2022-02-11] MEDS ORDERED: DOCU100C16 PO (07:06)
[2022-02-11] MEDS ORDERED: MUCI600T31 PO (07:06)
[2022-02-11] MEDS ORDERED: MULTCHW12 PO (07:06)
[2022-02-11] MEDS ORDERED: ALBU2.5V10 INH (07:06)
[2022-02-11] MEDS ORDERED: POTA20PW PO (07:06)
[2022-02-11] MEDS ORDERED: HOME MED LIST COMPLETE! XX SCH (07:10)
[2022-02-11 07:21] LABS: RSV AMPLIFICATION NEGATIVE (NEGATIVE)
[2022-02-11 07:38] LABS: HEMATOCRIT 30.7 % (36.0-47.0); HEMOGLOBIN 9.2 g/dl (12.0-15.5); MEAN CORPUSCULAR HEMOGLOBIN 28.4 pg (27.0-33.0); MEAN CORPUSCULAR VOLUME 94.8 fl (80.0-96.0); PLATELET COUNT, AUTOMATED 365 10^3/uL (150-450); RED BLOOD COUNT 3.24 10^6/uL (4.00-5.40); WHITE BLOOD COUNT 11.7 10^3/uL (4.0-10.0)
[2022-02-11] MEDS: OMEGA-3 1000MG CAPSULE PO SCH ×2 (09:00→20:32)
[2022-02-11] MEDS ORDERED: POTASSIUM CHL PWD 20MEQ PACKET PO SCH (09:00)
[2022-02-11] MEDS: SENOKOT S TAB PO SCH (09:00)
[2022-02-11] MEDS: TORSEMIDE 20 MG TAB PO SCH ×3 (09:00→20:49)
[2022-02-11] MEDS: DOCUSATE SODIUM 100MG CAPSULE PO SCH ×3 (09:00→20:57)
[2022-02-11] MEDS ORDERED: GLUCAGON INJ 1MG VIAL SC PRN (09:35)
[2022-02-11] MEDS ORDERED: ALBUTEROL SULFATE 2.5MG/0.5ML INH NEB SOLN INH PRN (09:35)
[2022-02-11] MEDS ORDERED: ALBUTEROL 90 MCG/ACT 8GM HFA INHALER INH PRN (09:35)
[2022-02-11] MEDS ORDERED: POLYVINYL ALCOHOL OPHTH SOLN 15ML (LIQUITEARS) OU PRN (09:35)
[2022-02-11] MEDS ORDERED: DEXTROSE 50% 50ML SYRINGE IV PRN (09:35)
[2022-02-11] MEDS ORDERED: PSEUDOEPHEDRINE 30 MG TAB PO PRN (09:35)
[2022-02-11] MEDS ORDERED: guaiFENesin ER 600 MG TAB PO PRN (09:35)
[2022-02-11] MEDS ORDERED: GLUCOSE 4GM CHEW TABLET PO PRN (09:35)
[2022-02-11] MEDS: ONDANSETRON 4MG 2ML VIAL IV PRN ×2 (13:37→20:38)
[2022-02-11] MEDS: INSULIN LISPRO (NovoLOG) PER UNIT SC SCH ×3 (13:37→20:21)
[2022-02-11] MEDS: MORPHINE 2 MG/ML 1ML VIAL IV PRN ×2 (13:38→18:16)
[2022-02-11 18:31] VITALS: BP 141/81
[2022-02-11 20:00] VITALS: BP 146/81
[2022-02-11] MEDS: SYMBICORT 80/4.5MCG INHALER 6GM INH SCH (20:00)
[2022-02-11] MEDS: ASPIRIN 81MG ENTERIC TABLET PO SCH (20:32)
[2022-02-11] MEDS: SIMVASTATIN 20 MG TAB PO SCH (20:33)
[2022-02-11] MEDS: POTASSIUM CHLORIDE 10MEQ SR TABLET PO SCH (20:33)
[2022-02-11] MEDS: HEPARIN SOD (PORCINE) 5000UNITS/ML 1ML VIAL/SYRINGE SQ SCH (20:34)
[2022-02-11] MEDS: LEVEMIR (INSULIN DETEMIR) 1 UNITS/0.01ML SC SCH (20:34)
[2022-02-12] MEDS: ACETAMINOPHEN TAB 650MG DOSE (2X325MG) PO PRN ×2 (00:08→20:25)
[2022-02-12] MEDS: ONDANSETRON 4MG 2ML VIAL IV PRN ×2 (02:54→14:00)
[2022-02-12 06:00] VITALS: BP 129/69
[2022-02-12 06:10] LABS: BASO % 0.3 % (0.0-1.0); EOS % 0.1 % (0.0-3.0); HEMATOCRIT 27.3 % (36.0-47.0); LYMPH # 1.8 10^3/uL (1.5-5.0); LYMPH % 18.9 % (24.0-44.0); MEAN CORPUSCULAR HEMOGLOBIN 28.2 pg (27.0-33.0); MEAN CORPUSCULAR HGB CONC 29.3 g/dl (32.0-36.5); MEAN CORPUSCULAR VOLUME 96.1 fl (80.0-96.0); MONO # 1.2 10^3/uL (0.0-0.8); MONO % 12.2 % (2.0-8.0); NEUTROPHILS # 6.5 10^3/uL (1.5-8.5); NEUTROPHILS % 68.2 % (36.0-66.0); PLATELET COUNT, AUTOMATED 310 10^3/uL (150-450); RED BLOOD COUNT 2.84 10^6/uL (4.00-5.40); WHITE BLOOD COUNT 9.5 10^3/uL (4.0-10.0)
[2022-02-12 06:31] LABS: MAGNESIUM LEVEL 2.1 MG/DL (1.8-2.4)
[2022-02-12 06:33] LABS: ALBUMIN 3.2 G/DL (3.2-5.2); BILIRUBIN,TOTAL 0.3 MG/DL (0.3-1.2); CALCIUM LEVEL 8.7 MG/DL (8.3-10.6); CREATININE FOR GFR 1.77 MG/DL (0.55-1.30); GLOMERULAR FILTRATION RATE 29.8 (>39); POTASSIUM SERUM 4.2 MMOL/L (3.5-5.1); TOTAL PROTEIN 6.1 G/DL (5.7-8.2)
[2022-02-12] MEDS: SYMBICORT 80/4.5MCG INHALER 6GM INH SCH ×2 (07:26→19:08)
[2022-02-12] MEDS: OMEGA-3 1000MG CAPSULE PO SCH ×3 (09:51→20:27)
[2022-02-12] MEDS: SENOKOT S TAB PO SCH (09:52)
[2022-02-12] MEDS: INSULIN LISPRO (NovoLOG) PER UNIT SC SCH ×4 (09:52→20:16)
[2022-02-12] MEDS: HEPARIN SOD (PORCINE) 5000UNITS/ML 1ML VIAL/SYRINGE SQ SCH ×2 (09:52→20:24)
[2022-02-12] MEDS: DOCUSATE SODIUM 100MG CAPSULE PO SCH ×2 (09:52→20:26)
[2022-02-12] MEDS: POTASSIUM CHLORIDE 10MEQ SR TABLET PO SCH ×2 (09:53→20:25)
[2022-02-12] MEDS: TORSEMIDE 20 MG TAB PO SCH ×2 (09:53→17:29)
[2022-02-12] MEDS: oxyCODONE 5MG TAB PO PRN (09:57)
[2022-02-12] MEDS: MORPHINE 2 MG/ML 1ML VIAL IV PRN (12:14)
[2022-02-12 14:00] VITALS: BP 128/70
[2022-02-12] MEDS: CYCLOBENZAPRINE 5MG TABLET PO PRN (15:28)
[2022-02-12] MEDS: LEVEMIR (INSULIN DETEMIR) 1 UNITS/0.01ML SC SCH (20:25)
[2022-02-12] MEDS: SIMVASTATIN 20 MG TAB PO SCH (20:26)
[2022-02-12] MEDS: ASPIRIN 81MG ENTERIC TABLET PO SCH (20:26)
[2022-02-13] VITALS (7 sets, daily range): BP systolic 121–154; BP diastolic 59–85
[2022-02-13] MEDS: ONDANSETRON 4MG 2ML VIAL IV PRN ×2 (03:41→08:08)
[2022-02-13] MEDS: ACETAMINOPHEN TAB 650MG DOSE (2X325MG) PO PRN ×2 (03:41→20:38)
[2022-02-13 06:09] LABS: BASO # 0.1 10^3/uL (0.0-0.2); BASO % 0.6 % (0.0-1.0); EOS # 0.2 10^3/uL (0.0-0.5); HEMATOCRIT 23.8 % (36.0-47.0); HEMOGLOBIN 7.1 g/dl (12.0-15.5); LYMPH # 1.8 10^3/uL (1.5-5.0); LYMPH % 20.3 % (24.0-44.0); MEAN CORPUSCULAR HEMOGLOBIN 28.5 pg (27.0-33.0); MEAN CORPUSCULAR HGB CONC 29.8 g/dl (32.0-36.5); MEAN CORPUSCULAR VOLUME 95.6 fl (80.0-96.0); MONO # 1.5 10^3/uL (0.0-0.8); MONO % 16.3 % (2.0-8.0); NEUTROPHILS # 5.4 10^3/uL (1.5-8.5); NEUTROPHILS % 60.5 % (36.0-66.0); PLATELET COUNT, AUTOMATED 264 10^3/uL (150-450); RED BLOOD COUNT 2.49 10^6/uL (4.00-5.40); WHITE BLOOD COUNT 8.9 10^3/uL (4.0-10.0)
[2022-02-13 06:37] LABS: ALBUMIN 2.9 G/DL (3.2-5.2); BILIRUBIN,TOTAL 0.3 MG/DL (0.3-1.2); CALCIUM LEVEL 8.5 MG/DL (8.3-10.6); CREATININE FOR GFR 1.78 MG/DL (0.55-1.30); GLOMERULAR FILTRATION RATE 29.6 (>39); POTASSIUM SERUM 4.1 MMOL/L (3.5-5.1); TOTAL PROTEIN 5.8 G/DL (5.7-8.2)
[2022-02-13] MEDS: SYMBICORT 80/4.5MCG INHALER 6GM INH SCH ×2 (07:30→19:59)
[2022-02-13] MEDS: DOCUSATE SODIUM 100MG CAPSULE PO SCH ×2 (08:08→20:37)
[2022-02-13] MEDS: INSULIN LISPRO (NovoLOG) PER UNIT SC SCH ×4 (08:08→20:39)
[2022-02-13] MEDS: OMEGA-3 1000MG CAPSULE PO SCH ×2 (08:08→20:39)
[2022-02-13] MEDS: SENOKOT S TAB PO SCH (08:09)
[2022-02-13] MEDS: TORSEMIDE 20 MG TAB PO SCH ×2 (08:09→18:24)
[2022-02-13] MEDS: POTASSIUM CHLORIDE 10MEQ SR TABLET PO SCH ×2 (08:09→20:39)
[2022-02-13] MEDS: HEPARIN SOD (PORCINE) 5000UNITS/ML 1ML VIAL/SYRINGE SQ SCH ×2 (08:10→20:38)
[2022-02-13 08:31] LABS: HEMATOCRIT 25.8 % (36.0-47.0); HEMOGLOBIN 7.7 g/dl (12.0-15.5)
[2022-02-13] MEDS: oxyCODONE 5MG TAB PO PRN ×2 (09:03→14:43)
[2022-02-13] MEDS: MORPHINE 2 MG/ML 1ML VIAL IV PRN ×2 (09:04→23:05)
[2022-02-13] MEDS: FERROUS SULFATE 325MG TAB PO SCH (10:06)
[2022-02-13] MEDS: CYCLOBENZAPRINE 5MG TABLET PO PRN (14:43)
[2022-02-13] MEDS: SIMVASTATIN 20 MG TAB PO SCH (20:38)
[2022-02-13] MEDS: ASPIRIN 81MG ENTERIC TABLET PO SCH (20:38)
[2022-02-13] MEDS: LEVEMIR (INSULIN DETEMIR) 1 UNITS/0.01ML SC SCH (20:39)
[2022-02-14 06:03] LABS: HEMATOCRIT 27.3 % (36.0-47.0); HEMOGLOBIN 8.4 g/dl (12.0-15.5); MEAN CORPUSCULAR HEMOGLOBIN 27.6 pg (27.0-33.0); MEAN CORPUSCULAR HGB CONC 30.8 g/dl (32.0-36.5); MEAN CORPUSCULAR VOLUME 89.8 fl (80.0-96.0); RED BLOOD COUNT 3.04 10^6/uL (4.00-5.40); WHITE BLOOD COUNT 9.4 10^3/uL (4.0-10.0)
[2022-02-14 06:04] LABS: BASO # 0.1 10^3/uL (0.0-0.2); BASO % 0.9 % (0.0-1.0); EOS # 0.3 10^3/uL (0.0-0.5); EOS % 3.5 % (0.0-3.0); LYMPH # 2.2 10^3/uL (1.5-5.0); MONO # 1.4 10^3/uL (0.0-0.8); MONO % 14.8 % (2.0-8.0); NEUTROPHILS # 5.4 10^3/uL (1.5-8.5); NEUTROPHILS % 57.3 % (36.0-66.0); PLATELET COUNT, AUTOMATED 301 10^3/uL (150-450)
[2022-02-14] MEDS: CYCLOBENZAPRINE 5MG TABLET PO PRN (06:11)
[2022-02-14 06:21] LABS: MAGNESIUM LEVEL 1.9 MG/DL (1.8-2.4)
[2022-02-14 06:24] LABS: ALBUMIN 2.8 G/DL (3.2-5.2); BILIRUBIN,TOTAL 0.4 MG/DL (0.3-1.2); CALCIUM LEVEL 8.2 MG/DL (8.3-10.6); CREATININE FOR GFR 1.53 MG/DL (0.55-1.30); GLOMERULAR FILTRATION RATE 35.2 (>39); POTASSIUM SERUM 4.1 MMOL/L (3.5-5.1); TOTAL PROTEIN 5.9 G/DL (5.7-8.2)
[2022-02-14] MEDS: SYMBICORT 80/4.5MCG INHALER 6GM INH SCH ×2 (07:26→18:21)
[2022-02-14] MEDS: INSULIN LISPRO (NovoLOG) PER UNIT SC SCH ×4 (08:15→22:29)
[2022-02-14] MEDS: HEPARIN SOD (PORCINE) 5000UNITS/ML 1ML VIAL/SYRINGE SQ SCH ×2 (08:15→22:30)
[2022-02-14] MEDS: POTASSIUM CHLORIDE 10MEQ SR TABLET PO SCH ×2 (08:16→22:29)
[2022-02-14] MEDS: DOCUSATE SODIUM 100MG CAPSULE PO SCH ×2 (08:16→22:29)
[2022-02-14] MEDS: SENOKOT S TAB PO SCH (08:16)
[2022-02-14] MEDS: OMEGA-3 1000MG CAPSULE PO SCH ×3 (08:16→22:00)
[2022-02-14] MEDS: TORSEMIDE 20 MG TAB PO SCH ×2 (08:16→16:35)
[2022-02-14] MEDS: FERROUS SULFATE 325MG TAB PO SCH (08:16)
[2022-02-14] MEDS ORDERED: oxyCODONE 5MG TAB PO PRN (09:45)
[2022-02-14] MEDS ORDERED: SENOKOT S TAB PO PRN (10:05)
[2022-02-14 14:00] VITALS: BP 147/79
[2022-02-14] MEDS: ONDANSETRON 4MG 2ML VIAL IV PRN ×2 (16:35→22:36)
[2022-02-14] MEDS: MORPHINE 2 MG/ML 1ML VIAL IV PRN ×2 (18:30→22:32)
[2022-02-14 22:00] VITALS: BP 146/78
[2022-02-14] MEDS: ASPIRIN 81MG ENTERIC TABLET PO SCH (22:29)
[2022-02-14] MEDS: SIMVASTATIN 20 MG TAB PO SCH (22:29)
[2022-02-14] MEDS: LEVEMIR (INSULIN DETEMIR) 1 UNITS/0.01ML SC SCH (22:30)
[2022-02-15 05:29] LABS: BASO # 0.1 10^3/uL (0.0-0.2); BASO % 0.6 % (0.0-1.0); EOS # 0.5 10^3/uL (0.0-0.5); HEMATOCRIT 27.7 % (36.0-47.0); HEMOGLOBIN 8.6 g/dl (12.0-15.5); LYMPH # 2.5 10^3/uL (1.5-5.0); LYMPH % 26.9 % (24.0-44.0); MEAN CORPUSCULAR HEMOGLOBIN 28.2 pg (27.0-33.0); MEAN CORPUSCULAR VOLUME 90.8 fl (80.0-96.0); MONO # 1.3 10^3/uL (0.0-0.8); MONO % 14.3 % (2.0-8.0); NEUTROPHILS # 4.9 10^3/uL (1.5-8.5); NEUTROPHILS % 52.9 % (36.0-66.0); PLATELET COUNT, AUTOMATED 323 10^3/uL (150-450); RED BLOOD COUNT 3.05 10^6/uL (4.00-5.40); WHITE BLOOD COUNT 9.3 10^3/uL (4.0-10.0)
[2022-02-15 05:53] LABS: MAGNESIUM LEVEL 1.9 MG/DL (1.8-2.4)
[2022-02-15 05:57] LABS: ALBUMIN 2.6 G/DL (3.2-5.2); BILIRUBIN,TOTAL 0.4 MG/DL (0.3-1.2); CALCIUM LEVEL 8.8 MG/DL (8.3-10.6); CREATININE FOR GFR 1.36 MG/DL (0.55-1.30); GLOMERULAR FILTRATION RATE 40.4 (>39); TOTAL PROTEIN 5.6 G/DL (5.7-8.2)
[2022-02-15] MEDS: ONDANSETRON 4MG 2ML VIAL IV PRN ×2 (06:12→22:24)
[2022-02-15] MEDS: MORPHINE 2 MG/ML 1ML VIAL IV PRN ×2 (06:12→22:26)
[2022-02-15] MEDS: INSULIN LISPRO (NovoLOG) PER UNIT SC SCH ×4 (07:30→22:16)
[2022-02-15] MEDS: SYMBICORT 80/4.5MCG INHALER 6GM INH SCH ×2 (07:34→19:27)
[2022-02-15] MEDS: FERROUS SULFATE 325MG TAB PO SCH (09:35)
[2022-02-15] MEDS: POTASSIUM CHLORIDE 10MEQ SR TABLET PO SCH ×2 (09:35→22:23)
[2022-02-15] MEDS: HEPARIN SOD (PORCINE) 5000UNITS/ML 1ML VIAL/SYRINGE SQ SCH ×2 (09:36→22:24)
[2022-02-15] MEDS: LIDOCAINE 5% (LIDODERM) PATCH TD SCH (09:36)
[2022-02-15] MEDS: OMEGA-3 1000MG CAPSULE PO SCH ×2 (09:36→22:16)
[2022-02-15] MEDS: SENOKOT S TAB PO SCH ×2 (09:36→22:23)
[2022-02-15] MEDS: oxyCODONE 5MG TAB PO PRN ×2 (09:37→14:39)
[2022-02-15] MEDS: TORSEMIDE 20 MG TAB PO SCH ×2 (09:40→17:12)
[2022-02-15] MEDS: LEVEMIR (INSULIN DETEMIR) 1 UNITS/0.01ML SC SCH (22:16)
[2022-02-15] MEDS: SIMVASTATIN 20 MG TAB PO SCH (22:23)
[2022-02-15] MEDS: ASPIRIN 81MG ENTERIC TABLET PO SCH (22:23)
[2022-02-15] MEDS ORDERED: MIRALAX *UNIT DOSE* 17GM PACKET PO ONE (23:00)
[2022-02-16 04:30] VITALS: BP 162/70
[2022-02-16 06:42] LABS: BASO # 0.1 10^3/uL (0.0-0.2); BASO % 0.6 % (0.0-1.0); EOS # 0.6 10^3/uL (0.0-0.5); EOS % 7.5 % (0.0-3.0); HEMATOCRIT 28.8 % (36.0-47.0); HEMOGLOBIN 8.6 g/dl (12.0-15.5); LYMPH # 2.1 10^3/uL (1.5-5.0); LYMPH % 25.5 % (24.0-44.0); MEAN CORPUSCULAR HEMOGLOBIN 27.5 pg (27.0-33.0); MEAN CORPUSCULAR HGB CONC 29.9 g/dl (32.0-36.5); MONO # 1.1 10^3/uL (0.0-0.8); MONO % 13.7 % (2.0-8.0); NEUTROPHILS # 4.3 10^3/uL (1.5-8.5); NEUTROPHILS % 52.5 % (36.0-66.0); PLATELET COUNT, AUTOMATED 322 10^3/uL (150-450); RED BLOOD COUNT 3.13 10^6/uL (4.00-5.40); WHITE BLOOD COUNT 8.2 10^3/uL (4.0-10.0)
[2022-02-16 07:02] LABS: MAGNESIUM LEVEL 1.9 MG/DL (1.8-2.4)
[2022-02-16 07:04] LABS: ALBUMIN 2.6 G/DL (3.2-5.2); BILIRUBIN,TOTAL 0.4 MG/DL (0.3-1.2); CALCIUM LEVEL 8.6 MG/DL (8.3-10.6); CREATININE FOR GFR 1.29 MG/DL (0.55-1.30); GLOMERULAR FILTRATION RATE 42.9 (>39); POTASSIUM SERUM 4.3 MMOL/L (3.5-5.1); TOTAL PROTEIN 5.8 G/DL (5.7-8.2)
[2022-02-16] MEDS: SYMBICORT 80/4.5MCG INHALER 6GM INH SCH ×2 (07:32→19:23)
[2022-02-16] MEDS: LIDOCAINE 5% (LIDODERM) PATCH TD SCH (08:12)
[2022-02-16] MEDS: INSULIN LISPRO (NovoLOG) PER UNIT SC SCH ×4 (08:13→21:00)
[2022-02-16] MEDS: HEPARIN SOD (PORCINE) 5000UNITS/ML 1ML VIAL/SYRINGE SQ SCH ×2 (08:13→21:39)
[2022-02-16] MEDS: SENOKOT S TAB PO SCH ×2 (08:13→21:39)
[2022-02-16] MEDS: POTASSIUM CHLORIDE 10MEQ SR TABLET PO SCH ×2 (08:13→21:38)
[2022-02-16] MEDS: oxyCODONE 5MG TAB PO PRN ×4 (08:14→21:41)
[2022-02-16] MEDS: FERROUS SULFATE 325MG TAB PO SCH (08:14)
[2022-02-16] MEDS: OMEGA-3 1000MG CAPSULE PO SCH ×2 (08:14→21:00)
[2022-02-16] MEDS: TORSEMIDE 20 MG TAB PO SCH ×2 (08:14→16:27)
[2022-02-16] MEDS: ONDANSETRON 4MG 2ML VIAL IV PRN (10:12)
[2022-02-16] MEDS: MORPHINE 2 MG/ML 1ML VIAL IV PRN (10:13)
[2022-02-16] MEDS: BISACODYL 10MG SUPP PR PRN (12:21)
[2022-02-16] MEDS: LEVEMIR (INSULIN DETEMIR) 1 UNITS/0.01ML SC SCH (21:00)
[2022-02-16] MEDS: ASPIRIN 81MG ENTERIC TABLET PO SCH (21:38)
[2022-02-16] MEDS: SIMVASTATIN 20 MG TAB PO SCH (21:39)
[2022-02-17 06:00] VITALS: BP 161/68
[2022-02-17 08:00] VITALS: BP 156/68
[2022-02-17] MEDS: oxyCODONE 5MG TAB PO PRN ×2 (08:15→13:59)
[2022-02-17] MEDS: SYMBICORT 80/4.5MCG INHALER 6GM INH SCH ×2 (08:17→20:17)
[2022-02-17] MEDS: INSULIN LISPRO (NovoLOG) PER UNIT SC SCH ×4 (08:24→20:37)
[2022-02-17] MEDS: FERROUS SULFATE 325MG TAB PO SCH ×2 (09:00→10:33)
[2022-02-17] MEDS: TORSEMIDE 20 MG TAB PO SCH ×2 (10:32→16:24)
[2022-02-17] MEDS: POTASSIUM CHLORIDE 10MEQ SR TABLET PO SCH ×2 (10:32→21:20)
[2022-02-17] MEDS: SENOKOT S TAB PO SCH ×2 (10:33→21:20)
[2022-02-17] MEDS: LIDOCAINE 5% (LIDODERM) PATCH TD SCH (10:34)
[2022-02-17] MEDS: HEPARIN SOD (PORCINE) 5000UNITS/ML 1ML VIAL/SYRINGE SQ SCH ×2 (10:34→21:20)
[2022-02-17] MEDS: OMEGA-3 1000MG CAPSULE PO SCH ×2 (11:18→21:00)
[2022-02-17 14:00] VITALS: BP 120/90
[2022-02-17] MEDS: ONDANSETRON 4MG 2ML VIAL IV PRN (15:44)
[2022-02-17] MEDS: MORPHINE 2 MG/ML 1ML VIAL IV PRN (15:44)
[2022-02-17] MEDS: LEVEMIR (INSULIN DETEMIR) 1 UNITS/0.01ML SC SCH (20:38)
[2022-02-17] MEDS: ASPIRIN 81MG ENTERIC TABLET PO SCH (21:20)
[2022-02-17] MEDS: SIMVASTATIN 20 MG TAB PO SCH (21:20)
[2022-02-17] MEDS ORDERED: traMADol 50 MG TAB PO ONE (21:55)
[2022-02-18 06:00] VITALS: BP 137/58
[2022-02-18] MEDS: SYMBICORT 80/4.5MCG INHALER 6GM INH SCH ×2 (07:39→19:57)
[2022-02-18] MEDS: LIDOCAINE 5% (LIDODERM) PATCH TD SCH (08:27)
[2022-02-18] MEDS: HEPARIN SOD (PORCINE) 5000UNITS/ML 1ML VIAL/SYRINGE SQ SCH ×2 (08:27→22:16)
[2022-02-18] MEDS: POTASSIUM CHLORIDE 10MEQ SR TABLET PO SCH ×2 (08:28→22:15)
[2022-02-18] MEDS: INSULIN LISPRO (NovoLOG) PER UNIT SC SCH ×4 (08:28→22:08)
[2022-02-18] MEDS: OMEGA-3 1000MG CAPSULE PO SCH ×3 (08:29→22:07)
[2022-02-18] MEDS: FERROUS SULFATE 325MG TAB PO SCH ×2 (08:29→08:30)
[2022-02-18] MEDS: TORSEMIDE 20 MG TAB PO SCH ×2 (08:29→17:13)
[2022-02-18] MEDS: SENOKOT S TAB PO SCH ×2 (08:29→22:15)
[2022-02-18] MEDS: MORPHINE 2 MG/ML 1ML VIAL IV PRN (10:08)
[2022-02-18] MEDS: ONDANSETRON 4MG 2ML VIAL IV PRN (10:08)
[2022-02-18] MEDS: ONDANSETRON 4MG TAB PO PRN (17:13)
[2022-02-18] MEDS: LEVEMIR (INSULIN DETEMIR) 1 UNITS/0.01ML SC SCH (22:08)
[2022-02-18] MEDS: ASPIRIN 81MG ENTERIC TABLET PO SCH (22:15)
[2022-02-18] MEDS: SIMVASTATIN 20 MG TAB PO SCH (22:15)
[2022-02-18] MEDS: oxyCODONE 5MG TAB PO PRN (22:16)
[2022-02-19] MEDS: KETOROLAC TROMETHAMINE 10 MG TAB PO PRN ×3 (01:15→22:52)
[2022-02-19 06:00] VITALS: BP 134/65
[2022-02-19 08:00] VITALS: BP 139/66
[2022-02-19 08:13] VITALS: O2SAT 91
[2022-02-19] MEDS: SYMBICORT 80/4.5MCG INHALER 6GM INH SCH ×2 (08:13→19:54)
[2022-02-19] MEDS: INSULIN LISPRO (NovoLOG) PER UNIT SC SCH ×4 (08:41→20:54)
[2022-02-19] MEDS: LIDOCAINE 5% (LIDODERM) PATCH TD SCH (09:00)
[2022-02-19] MEDS: OMEGA-3 1000MG CAPSULE PO SCH ×2 (09:00→20:53)
[2022-02-19] MEDS: FERROUS SULFATE 325MG TAB PO SCH (09:58)
[2022-02-19] MEDS: TORSEMIDE 20 MG TAB PO SCH ×2 (09:58→17:00)
[2022-02-19] MEDS: POTASSIUM CHLORIDE 10MEQ SR TABLET PO SCH ×2 (09:59→20:53)
[2022-02-19] MEDS: SENOKOT S TAB PO SCH ×2 (10:00→20:53)
[2022-02-19] MEDS: HEPARIN SOD (PORCINE) 5000UNITS/ML 1ML VIAL/SYRINGE SQ SCH ×2 (10:02→20:54)
[2022-02-19] MEDS: oxyCODONE 5MG TAB PO PRN ×2 (11:43→20:55)
[2022-02-19] MEDS: ASPIRIN 81MG ENTERIC TABLET PO SCH (20:53)
[2022-02-19] MEDS: SIMVASTATIN 20 MG TAB PO SCH (20:54)
[2022-02-19] MEDS: LEVEMIR (INSULIN DETEMIR) 1 UNITS/0.01ML SC SCH (20:54)
[2022-02-19] MEDS: ONDANSETRON 4MG TAB PO PRN (20:56)
[2022-02-20 06:00] VITALS: BP 139/66
[2022-02-20 07:58] VITALS: O2SAT 97
[2022-02-20] MEDS: SYMBICORT 80/4.5MCG INHALER 6GM INH SCH ×2 (07:58→19:30)
[2022-02-20] MEDS: OMEGA-3 1000MG CAPSULE PO SCH ×2 (08:13→22:14)
[2022-02-20] MEDS: FERROUS SULFATE 325MG TAB PO SCH ×2 (09:00→09:22)
[2022-02-20] MEDS: LIDOCAINE 5% (LIDODERM) PATCH TD SCH (09:00)
[2022-02-20] MEDS: oxyCODONE 5MG TAB PO PRN ×3 (09:22→22:16)
[2022-02-20] MEDS: SENOKOT S TAB PO SCH ×2 (09:22→22:14)
[2022-02-20] MEDS: POTASSIUM CHLORIDE 10MEQ SR TABLET PO SCH ×2 (09:23→22:14)
[2022-02-20] MEDS: INSULIN LISPRO (NovoLOG) PER UNIT SC SCH ×4 (09:23→22:15)
[2022-02-20] MEDS: TORSEMIDE 20 MG TAB PO SCH ×2 (09:23→16:19)
[2022-02-20] MEDS: HEPARIN SOD (PORCINE) 5000UNITS/ML 1ML VIAL/SYRINGE SQ SCH ×2 (09:24→22:15)
[2022-02-20 19:43] VITALS: O2SAT 96
[2022-02-20] MEDS: ASPIRIN 81MG ENTERIC TABLET PO SCH (22:14)
[2022-02-20] MEDS: ONDANSETRON 4MG TAB PO PRN (22:15)
[2022-02-20] MEDS: LEVEMIR (INSULIN DETEMIR) 1 UNITS/0.01ML SC SCH (22:15)
[2022-02-20] MEDS: SIMVASTATIN 20 MG TAB PO SCH (22:15)
[2022-02-20] MEDS: KETOROLAC TROMETHAMINE 10 MG TAB PO PRN (23:16)
[2022-02-21] MEDS: oxyCODONE 5MG TAB PO PRN ×3 (03:19→20:53)
[2022-02-21 06:00] VITALS: BP 134/60
[2022-02-21] MEDS: SYMBICORT 80/4.5MCG INHALER 6GM INH SCH ×2 (07:19→19:35)
[2022-02-21 07:20] VITALS: O2SAT 97
[2022-02-21] MEDS: INSULIN LISPRO (NovoLOG) PER UNIT SC SCH ×4 (08:08→20:52)
[2022-02-21] MEDS: OMEGA-3 1000MG CAPSULE PO SCH ×2 (08:08→20:52)
[2022-02-21] MEDS: POTASSIUM CHLORIDE 10MEQ SR TABLET PO SCH ×2 (08:08→20:52)
[2022-02-21] MEDS: SENOKOT S TAB PO SCH ×2 (08:08→20:52)
[2022-02-21] MEDS: TORSEMIDE 20 MG TAB PO SCH ×2 (08:08→17:33)
[2022-02-21] MEDS: FERROUS SULFATE 325MG TAB PO SCH (08:08)
[2022-02-21] MEDS: HEPARIN SOD (PORCINE) 5000UNITS/ML 1ML VIAL/SYRINGE SQ SCH ×2 (08:09→20:53)
[2022-02-21] MEDS: LIDOCAINE 5% (LIDODERM) PATCH TD SCH (08:09)
[2022-02-21] MEDS: KETOROLAC TROMETHAMINE 10 MG TAB PO PRN (10:26)
[2022-02-21] MEDS: ONDANSETRON 4MG TAB PO PRN ×2 (12:31→20:53)
[2022-02-21] MEDS: ASPIRIN 81MG ENTERIC TABLET PO SCH (20:51)
[2022-02-21] MEDS: LEVEMIR (INSULIN DETEMIR) 1 UNITS/0.01ML SC SCH (20:52)
[2022-02-21] MEDS: SIMVASTATIN 20 MG TAB PO SCH (20:52)
[2022-02-22] MEDS: oxyCODONE 5MG TAB PO PRN ×4 (01:26→21:52)
[2022-02-22 06:00] VITALS: BP 132/59
[2022-02-22] MEDS: SYMBICORT 80/4.5MCG INHALER 6GM INH SCH ×2 (07:26→20:36)
[2022-02-22] MEDS: OMEGA-3 1000MG CAPSULE PO SCH ×2 (09:00→21:00)
[2022-02-22] MEDS: FERROUS SULFATE 325MG TAB PO SCH (09:00)
[2022-02-22] MEDS: LIDOCAINE 5% (LIDODERM) PATCH TD SCH (09:17)
[2022-02-22] MEDS: HEPARIN SOD (PORCINE) 5000UNITS/ML 1ML VIAL/SYRINGE SQ SCH ×3 (09:18→21:38)
[2022-02-22] MEDS: INSULIN LISPRO (NovoLOG) PER UNIT SC SCH ×4 (09:18→21:00)
[2022-02-22] MEDS: KETOROLAC TROMETHAMINE 10 MG TAB PO PRN ×2 (09:18→17:10)
[2022-02-22] MEDS: ONDANSETRON 4MG TAB PO PRN ×2 (09:19→17:10)
[2022-02-22] MEDS: POTASSIUM CHLORIDE 10MEQ SR TABLET PO SCH ×2 (09:19→21:38)
[2022-02-22] MEDS: ACETAMINOPHEN TAB 650MG DOSE (2X325MG) PO PRN (09:19)
[2022-02-22] MEDS: TORSEMIDE 20 MG TAB PO SCH ×2 (09:19→17:10)
[2022-02-22] MEDS: SENOKOT S TAB PO SCH ×2 (09:19→21:38)
[2022-02-22] MEDS: LEVEMIR (INSULIN DETEMIR) 1 UNITS/0.01ML SC SCH (21:00)
[2022-02-22] MEDS: ASPIRIN 81MG ENTERIC TABLET PO SCH (21:38)
[2022-02-22] MEDS: SIMVASTATIN 20 MG TAB PO SCH (21:38)
[2022-02-23] VITALS (8 sets, daily range): BP systolic 131–139; BP diastolic 60–67
[2022-02-23] MEDS: oxyCODONE 5MG TAB PO PRN ×2 (05:38→21:07)
[2022-02-23] MEDS: SYMBICORT 80/4.5MCG INHALER 6GM INH SCH ×2 (07:30→20:16)
[2022-02-23] MEDS: FERROUS SULFATE 325MG TAB PO SCH (07:48)
[2022-02-23] MEDS: POTASSIUM CHLORIDE 10MEQ SR TABLET PO SCH ×2 (07:48→21:07)
[2022-02-23] MEDS: SENOKOT S TAB PO SCH ×2 (07:49→21:07)
[2022-02-23] MEDS: OMEGA-3 1000MG CAPSULE PO SCH ×2 (07:49→21:00)
[2022-02-23] MEDS: LIDOCAINE 5% (LIDODERM) PATCH TD SCH (07:49)
[2022-02-23] MEDS ORDERED: ONDANSETRON 4MG 2ML VIAL As Ordered ONE ×2 (10:09→14:05)
[2022-02-23] MEDS ORDERED: propofoL 200 MG/20 ML VIAL As Ordered ONE (10:09)
[2022-02-23] MEDS ORDERED: LIDOCAINE 2% 100MG/5ML SDV (FOR ANES.) As Ordered ONE (10:09)
[2022-02-23] MEDS ORDERED: ROCURONIUM BROMIDE 50MG/5ML VIAL As Ordered ONE ×2 (10:09→12:22)
[2022-02-23] MEDS ORDERED: SUGAMMADEX SODIUM 500 MG/5 ML VIAL (BRIDION) As Ordered ONE (10:09)
[2022-02-23] MEDS ORDERED: LIDOCAINE 1% SDV 5ML VIAL PN ONE (10:50)
[2022-02-23] MEDS ORDERED: ROPIvacaine 0.5% 30ML VIAL PN ONE (10:50)
[2022-02-23] MEDS ORDERED: MIDAZOLAM INJ 2MG/2ML VIAL IV PRN (10:50)
[2022-02-23] MEDS ORDERED: TRANEXAMIC ACID 100 MG/ML 10ML VIAL As Ordered ONE (10:51)
[2022-02-23] MEDS ORDERED: ceFAZolin 2 GM/D5W 50 ML IV BAG As Ordered ONE (10:54)
[2022-02-23] MEDS: fentaNYL 100 MCG/2 ML INJECTION IV PRN ×2 (11:00→11:04)
[2022-02-23] MEDS ORDERED: ONDANSETRON 4MG 2ML VIAL IV PRN (14:15)
[2022-02-23] MEDS ORDERED: HYDROMORPHONE HCL 0.5 MG/ 0.5 ML SYRINGE IV PRN (14:15)
[2022-02-23] MEDS ORDERED: fentaNYL 100 MCG/2 ML INJECTION IV PRN (14:15)
[2022-02-23] MEDS ORDERED: oxyCODONE 5MG TAB PO PRN (14:15)
[2022-02-23] MEDS ORDERED: LR 1,000 ML IV SCH (14:15)
[2022-02-23] MEDS ORDERED: METOCLOPRAMIDE INJ 10MG/2ML VIAL IV ONE (14:25)
[2022-02-23] MEDS ORDERED: POLYVINYL ALCOHOL OPHTH SOLN 15ML (LIQUITEARS) OU PRN (14:35)
[2022-02-23] MEDS: TORSEMIDE 20 MG TAB PO SCH (17:27)
[2022-02-23] MEDS ORDERED: ceFAZolin SOD 1 GM in D5W MINI-BAG PLUS 50 ML IV ONE (19:00)
[2022-02-23] MEDS: ONDANSETRON 4MG TAB PO PRN (21:07)
[2022-02-23] MEDS: ASPIRIN 81MG ENTERIC TABLET PO SCH (21:07)
[2022-02-23] MEDS: SIMVASTATIN 20 MG TAB PO SCH (21:07)
[2022-02-24] VITALS (8 sets, daily range): BP systolic 140–186; BP diastolic 62–102
[2022-02-24] MEDS: ceFAZolin SOD 1 GM in D5W MINI-BAG PLUS 50 ML IV SCH ×2 (03:00→12:57)
[2022-02-24] MEDS: oxyCODONE 5MG TAB PO PRN ×4 (03:01→17:55)
[2022-02-24] MEDS: SYMBICORT 80/4.5MCG INHALER 6GM INH SCH ×2 (07:36→19:43)
[2022-02-24] MEDS ORDERED: FLEET ENEMA PR PRN (08:05)
[2022-02-24] MEDS: FERROUS SULFATE 325MG TAB PO SCH (09:00)
[2022-02-24] MEDS ORDERED: MIRALAX *UNIT DOSE* 17GM PACKET PO SCH (09:00)
[2022-02-24] MEDS: OMEGA-3 1000MG CAPSULE PO SCH ×2 (09:00→20:37)
[2022-02-24] MEDS: MOM 30ML SUSPENSION UDC PO SCH ×2 (09:30→12:57)
[2022-02-24] MEDS: INSULIN LISPRO (NovoLOG) PER UNIT SC SCH ×4 (09:30→21:00)
[2022-02-24] MEDS: SENOKOT S TAB PO SCH ×2 (09:30→20:36)
[2022-02-24] MEDS: TORSEMIDE 20 MG TAB PO SCH ×2 (09:30→17:00)
[2022-02-24] MEDS: POTASSIUM CHLORIDE 10MEQ SR TABLET PO SCH ×2 (09:33→20:37)
[2022-02-24] MEDS: LIDOCAINE 5% (LIDODERM) PATCH TD SCH (09:34)
[2022-02-24 10:38] LABS: HEMOGLOBIN 9.5 g/dl (12.0-15.5); MEAN CORPUSCULAR HEMOGLOBIN 28.3 pg (27.0-33.0); MEAN CORPUSCULAR HGB CONC 30.6 g/dl (32.0-36.5); MEAN CORPUSCULAR VOLUME 92.3 fl (80.0-96.0); PLATELET COUNT, AUTOMATED 535 10^3/uL (150-450); RED BLOOD COUNT 3.36 10^6/uL (4.00-5.40); WHITE BLOOD COUNT 11.3 10^3/uL (4.0-10.0)
[2022-02-24 11:01] LABS: CALCIUM LEVEL 9.4 MG/DL (8.3-10.6); CREATININE FOR GFR 1.34 MG/DL (0.55-1.30); POTASSIUM SERUM 4.4 MMOL/L (3.5-5.1)
[2022-02-24] MEDS ORDERED: HYDROMORPHONE HCL 0.5 MG/ 0.5 ML SYRINGE IV ONE (15:45)
[2022-02-24] MEDS: ASPIRIN 81MG ENTERIC TABLET PO SCH (20:36)
[2022-02-24] MEDS: SIMVASTATIN 20 MG TAB PO SCH (20:36)
[2022-02-24] MEDS: ACETAMINOPHEN TAB 650MG DOSE (2X325MG) PO PRN (20:38)
[2022-02-24] MEDS: ONDANSETRON 4MG TAB PO PRN (21:42)
[2022-02-25] MEDS: oxyCODONE 5MG TAB PO PRN (04:03)
[2022-02-25 06:00] VITALS: BP 114/64
[2022-02-25] MEDS: ONDANSETRON 4MG TAB PO PRN ×2 (06:09→20:02)
[2022-02-25] MEDS: SYMBICORT 80/4.5MCG INHALER 6GM INH SCH ×2 (08:09→20:11)
[2022-02-25] MEDS: OMEGA-3 1000MG CAPSULE PO SCH ×2 (08:22→20:05)
[2022-02-25] MEDS: TORSEMIDE 20 MG TAB PO SCH ×2 (08:48→17:00)
[2022-02-25] MEDS: SENOKOT S TAB PO SCH ×2 (08:49→20:03)
[2022-02-25] MEDS: FERROUS SULFATE 325MG TAB PO SCH ×2 (08:49→08:56)
[2022-02-25] MEDS: POTASSIUM CHLORIDE 10MEQ SR TABLET PO SCH ×2 (08:49→20:04)
[2022-02-25] MEDS: LIDOCAINE 5% (LIDODERM) PATCH TD SCH ×2 (08:49→08:56)
[2022-02-25] MEDS: INSULIN LISPRO (NovoLOG) PER UNIT SC SCH ×5 (08:50→21:00)
[2022-02-25] MEDS ORDERED: HYDROMORPHONE HCL 0.5 MG/ 0.5 ML SYRINGE IV ONE (11:15)
[2022-02-25] MEDS ORDERED: NALOXONE INJ 0.4MG/1ML VIAL IV PRN (11:15)
[2022-02-25] MEDS: oxyCODONE 5MG TAB PO SCH ×3 (12:56→20:05)
[2022-02-25] MEDS: oxyCODONE 10 MG CR TAB PO SCH ×2 (12:57→20:05)
[2022-02-25 14:00] VITALS: BP 136/87
[2022-02-25 17:46] LABS: CALCIUM LEVEL 8.9 MG/DL (8.3-10.6); CREATININE FOR GFR 1.5 MG/DL (0.55-1.30); POTASSIUM SERUM 4.6 MMOL/L (3.5-5.1)
[2022-02-25] MEDS: ASPIRIN 81MG ENTERIC TABLET PO SCH (20:02)
[2022-02-25] MEDS: SIMVASTATIN 20 MG TAB PO SCH (20:03)
[2022-02-25 21:20] VITALS: BP 144/61
[2022-02-25] MEDS: MORPHINE 2 MG/ML 1ML VIAL IV PRN (23:41)
[2022-02-26] MEDS: oxyCODONE 5MG TAB PO SCH ×2 (01:19→05:10)
[2022-02-26 05:45] VITALS: BP 146/67
[2022-02-26] MEDS: SYMBICORT 80/4.5MCG INHALER 6GM INH SCH ×2 (07:41→19:59)
[2022-02-26] MEDS ORDERED: MIRALAX *UNIT DOSE* 17GM PACKET PO PRN (08:35)
[2022-02-26] MEDS: OMEGA-3 1000MG CAPSULE PO SCH ×2 (09:00→20:40)
[2022-02-26] MEDS ORDERED: SENOKOT S TAB PO SCH (09:00)
[2022-02-26] MEDS ORDERED: MOM 30ML SUSPENSION UDC PO ONE (09:15)
[2022-02-26] MEDS: INSULIN LISPRO (NovoLOG) PER UNIT SC SCH ×4 (09:20→20:41)
[2022-02-26] MEDS: ONDANSETRON 4MG TAB PO PRN (09:20)
[2022-02-26] MEDS: MIRALAX *UNIT DOSE* 17GM PACKET PO PRN (09:22)
[2022-02-26] MEDS: POTASSIUM CHLORIDE 10MEQ SR TABLET PO SCH ×4 (09:22→21:25)
[2022-02-26] MEDS: FERROUS SULFATE 325MG TAB PO SCH (09:22)
[2022-02-26] MEDS: LIDOCAINE 5% (LIDODERM) PATCH TD SCH (09:22)
[2022-02-26] MEDS: SENOKOT S TAB PO SCH ×2 (09:23→20:36)
[2022-02-26] MEDS: MORPHINE 30 MG TAB **MSIR PO SCH ×4 (09:29→20:40)
[2022-02-26] MEDS: ACETAMINOPHEN 500 MG TAB PO SCH ×3 (09:30→20:36)
[2022-02-26 14:00] VITALS: BP 144/104
[2022-02-26] MEDS ORDERED: PILL CUTTER 1 EACH XX ONE (20:29)
[2022-02-26] MEDS: SIMVASTATIN 20 MG TAB PO SCH (20:33)
[2022-02-26] MEDS: ASPIRIN 81MG ENTERIC TABLET PO SCH (20:40)
[2022-02-26 20:49] VITALS: BP_SYST 150; BP_SYST 168; BP_DIAS 92
[2022-02-27 06:38] VITALS: BP 153/69
[2022-02-27] MEDS: SYMBICORT 80/4.5MCG INHALER 6GM INH SCH ×2 (07:29→18:58)
[2022-02-27] MEDS: INSULIN LISPRO (NovoLOG) PER UNIT SC SCH ×4 (07:30→20:31)
[2022-02-27] MEDS: OMEGA-3 1000MG CAPSULE PO SCH ×2 (09:00→20:31)
[2022-02-27] MEDS: FERROUS SULFATE 325MG TAB PO SCH (09:00)
[2022-02-27] MEDS: MORPHINE 30 MG TAB **MSIR PO SCH ×4 (09:00→21:23)
[2022-02-27] MEDS: BISACODYL 10MG SUPP PR PRN (10:18)
[2022-02-27] MEDS: ACETAMINOPHEN 500 MG TAB PO SCH ×3 (10:34→21:23)
[2022-02-27] MEDS: SENOKOT S TAB PO SCH ×2 (10:34→21:22)
[2022-02-27] MEDS: LIDOCAINE 5% (LIDODERM) PATCH TD SCH (10:35)
[2022-02-27] MEDS: MOM 30ML SUSPENSION UDC PO PRN (10:44)
[2022-02-27] MEDS: MIRALAX *UNIT DOSE* 17GM PACKET PO PRN (10:44)
[2022-02-27] MEDS: ONDANSETRON 4MG TAB PO PRN (11:04)
[2022-02-27 14:00] VITALS: BP 142/84
[2022-02-27] MEDS: POTASSIUM CHLORIDE 10MEQ SR TABLET PO SCH (20:31)
[2022-02-27] MEDS: SIMVASTATIN 20 MG TAB PO SCH (21:22)
[2022-02-27] MEDS: ASPIRIN 81MG ENTERIC TABLET PO SCH (21:22)
[2022-02-28] MEDS: ONDANSETRON 4MG TAB PO PRN ×2 (04:53→21:01)
[2022-02-28 06:00] VITALS: BP 172/64
[2022-02-28] MEDS: SYMBICORT 80/4.5MCG INHALER 6GM INH SCH ×2 (07:34→19:17)
[2022-02-28] MEDS: INSULIN LISPRO (NovoLOG) PER UNIT SC SCH ×4 (08:25→21:00)
[2022-02-28] MEDS: SENOKOT S TAB PO SCH ×2 (08:26→21:01)
[2022-02-28] MEDS: POTASSIUM CHLORIDE 10MEQ SR TABLET PO SCH ×2 (08:26→21:01)
[2022-02-28] MEDS: FERROUS SULFATE 325MG TAB PO SCH ×2 (08:26→08:37)
[2022-02-28] MEDS: ACETAMINOPHEN 500 MG TAB PO SCH ×3 (08:26→21:02)
[2022-02-28] MEDS: MORPHINE 30 MG TAB **MSIR PO SCH ×2 (08:27→12:52)
[2022-02-28] MEDS: OMEGA-3 1000MG CAPSULE PO SCH ×2 (09:00→21:00)
[2022-02-28] MEDS: LIDOCAINE 5% (LIDODERM) PATCH TD SCH (09:00)
[2022-02-28] MEDS ORDERED: TORSEMIDE 20 MG TAB PO ONE (10:30)
[2022-02-28] MEDS: MOM 30ML SUSPENSION UDC PO PRN (12:51)
[2022-02-28 13:45] VITALS: BP 152/86
[2022-02-28] MEDS: PERCOCET 5MG/325MG TAB PO PRN ×2 (16:42→21:02)
[2022-02-28] MEDS ORDERED: TORSEMIDE 20 MG TAB PO SCH (17:00)
[2022-02-28 18:37] LABS: CALCIUM LEVEL 9.4 MG/DL (8.3-10.6); CREATININE FOR GFR 1.24 MG/DL (0.55-1.30); GLOMERULAR FILTRATION RATE 44.9 (>39); POTASSIUM SERUM 4.5 MMOL/L (3.5-5.1)
[2022-02-28 20:00] VITALS: BP 180/105
[2022-02-28] MEDS: SIMVASTATIN 20 MG TAB PO SCH (21:01)
[2022-02-28] MEDS: ASPIRIN 81MG ENTERIC TABLET PO SCH (21:01)
[2022-02-28 21:56] VITALS: BP_SYST 122
[2022-03-01] MEDS: PERCOCET 5MG/325MG TAB PO PRN ×2 (05:15→09:57)
[2022-03-01] MEDS: ONDANSETRON 4MG TAB PO PRN ×2 (05:15→14:45)
[2022-03-01 06:00] VITALS: BP 159/61
[2022-03-01 06:28] LABS: CALCIUM LEVEL 9.2 MG/DL (8.3-10.6); CREATININE FOR GFR 1.13 MG/DL (0.55-1.30); POTASSIUM SERUM 4.9 MMOL/L (3.5-5.1)
[2022-03-01] MEDS: SYMBICORT 80/4.5MCG INHALER 6GM INH SCH ×2 (08:00→19:19)
[2022-03-01] MEDS: POTASSIUM CHLORIDE 10MEQ SR TABLET PO SCH ×2 (08:32→21:12)
[2022-03-01] MEDS: OMEGA-3 1000MG CAPSULE PO SCH ×2 (08:32→21:00)
[2022-03-01] MEDS: ACETAMINOPHEN 500 MG TAB PO SCH ×3 (08:32→21:00)
[2022-03-01] MEDS: SENOKOT S TAB PO SCH ×2 (08:32→21:12)
[2022-03-01] MEDS: FERROUS SULFATE 325MG TAB PO SCH (08:33)
[2022-03-01] MEDS: INSULIN LISPRO (NovoLOG) PER UNIT SC SCH ×4 (08:34→21:00)
[2022-03-01 14:00] VITALS: BP 139/74
[2022-03-01 14:30] VITALS: BP 139/74
[2022-03-01] MEDS: MOM 30ML SUSPENSION UDC PO PRN (15:42)
[2022-03-01] MEDS: oxyCODONE 5MG TAB PO PRN (18:22)
[2022-03-01 19:22] VITALS: O2SAT 94
[2022-03-01] MEDS: ASPIRIN 81MG ENTERIC TABLET PO SCH (21:12)
[2022-03-01] MEDS: SIMVASTATIN 20 MG TAB PO SCH (21:13)
[2022-03-01 22:00] VITALS: BP 141/73
[2022-03-02] MEDS: ONDANSETRON 4MG TAB PO PRN ×2 (05:24→20:34)
[2022-03-02 06:00] VITALS: BP 128/63
[2022-03-02] MEDS: SYMBICORT 80/4.5MCG INHALER 6GM INH SCH ×2 (07:28→20:37)
[2022-03-02] MEDS: FERROUS SULFATE 325MG TAB PO SCH (08:41)
[2022-03-02] MEDS: OMEGA-3 1000MG CAPSULE PO SCH ×2 (08:41→19:50)
[2022-03-02] MEDS: SENOKOT S TAB PO SCH ×2 (09:00→20:27)
[2022-03-02] MEDS: POTASSIUM CHLORIDE 10MEQ SR TABLET PO SCH ×2 (09:28→20:27)
[2022-03-02] MEDS: oxyCODONE 5MG TAB PO PRN ×3 (09:28→21:32)
[2022-03-02] MEDS: INSULIN LISPRO (NovoLOG) PER UNIT SC SCH ×4 (09:28→21:00)
[2022-03-02] MEDS: ACETAMINOPHEN 500 MG TAB PO SCH ×3 (09:29→20:28)
[2022-03-02 14:00] VITALS: BP 127/64
[2022-03-02] MEDS: SIMVASTATIN 20 MG TAB PO SCH (20:27)
[2022-03-02] MEDS: ASPIRIN 81MG ENTERIC TABLET PO SCH (20:27)
[2022-03-02 22:00] VITALS: BP 125/64
[2022-03-03] MEDS ORDERED: oxyCODONE 5MG TAB PO ONE (01:00)
[2022-03-03] MEDS: ONDANSETRON 4MG TAB PO PRN ×3 (04:50→21:43)
[2022-03-03] MEDS: MORPHINE 2 MG/ML 1ML VIAL IV PRN ×2 (04:50→22:02)
[2022-03-03 05:36] VITALS: BP 124/64
[2022-03-03] MEDS: SYMBICORT 80/4.5MCG INHALER 6GM INH SCH ×2 (07:41→19:51)
[2022-03-03] MEDS: INSULIN LISPRO (NovoLOG) PER UNIT SC SCH ×4 (09:04→20:19)
[2022-03-03] MEDS: OMEGA-3 1000MG CAPSULE PO SCH ×2 (09:27→19:57)
[2022-03-03] MEDS: FERROUS SULFATE 325MG TAB PO SCH (09:27)
[2022-03-03] MEDS: SENOKOT S TAB PO SCH ×2 (09:28→20:13)
[2022-03-03] MEDS: POTASSIUM CHLORIDE 10MEQ SR TABLET PO SCH ×2 (09:28→20:14)
[2022-03-03] MEDS: ACETAMINOPHEN 500 MG TAB PO SCH ×3 (09:53→20:14)
[2022-03-03] MEDS: oxyCODONE 5MG TAB PO PRN ×3 (10:09→20:14)
[2022-03-03] MEDS ORDERED: OXYC-517 PO (12:04)
[2022-03-03 14:00] VITALS: BP 129/68
[2022-03-03] MEDS: SIMVASTATIN 20 MG TAB PO SCH (20:13)
[2022-03-03] MEDS: ASPIRIN 81MG ENTERIC TABLET PO SCH (20:13)
[2022-03-03 22:00] VITALS: BP 114/53
[2022-03-04] MEDS: ONDANSETRON 4MG TAB PO PRN (04:13)
[2022-03-04] MEDS: oxyCODONE 5MG TAB PO PRN (04:14)
[2022-03-04] MEDS: SYMBICORT 80/4.5MCG INHALER 6GM INH SCH (07:32)
[2022-03-04] MEDS: POTASSIUM CHLORIDE 10MEQ SR TABLET PO SCH (08:47)
[2022-03-04] MEDS: FERROUS SULFATE 325MG TAB PO SCH (08:47)
[2022-03-04] MEDS: SENOKOT S TAB PO SCH (08:47)
[2022-03-04] MEDS: ACETAMINOPHEN 500 MG TAB PO SCH (08:47)
[2022-03-04] MEDS: OMEGA-3 1000MG CAPSULE PO SCH (08:47)
[2022-03-04] MEDS: INSULIN LISPRO (NovoLOG) PER UNIT SC SCH (08:48)
[2022-03-04] MEDS: MORPHINE 2 MG/ML 1ML VIAL IV PRN (09:56)
== END 2022-03-04 10:08 | DRG 483 ==
LOC: M ED 03:38 → EDBD 03:38 → M ED INP 09:32 → UNDOADMIN 09:32 → M MSPAV 09:32 → ENRESERV 15:31 → M ED INP 18:31 → M MSPAV 18:31
PROVIDERS: ADMIT Family Medicine; ATTEND Family Medicine
PROC: 30233N1 Transfusion of Nonautologous Red Blood Cells into Peripheral Vein, Percutaneous Approach (ICD-10-PCS; 2022-02-13)
PROC: 0RRJ0J6 Replacement of Right Shoulder Joint with Synthetic Substitute, Humeral Surface, Open Approach (ICD-10-PCS; principal; 2022-02-23 11:10)
DX: S42.302A Unspecified fracture of shaft of humerus, left arm, initial encounter for closed fracture (principal); I50.32 Chronic diastolic (congestive) heart failure; M84.422A Pathological fracture, left humerus, initial encounter for fracture; J96.11 Chronic respiratory failure with hypoxia; S42.301B Unspecified fracture of shaft of humerus, right arm, initial encounter for open fracture; E11.22 Type 2 diabetes mellitus with diabetic chronic kidney disease; M06.9 Rheumatoid arthritis, unspecified; J44.9 Chronic obstructive pulmonary disease, unspecified; Z79.4 Long term (current) use of insulin; M81.0 Age-related osteoporosis without current pathological fracture; Z99.81 Dependence on supplemental oxygen; N18.30 Chronic kidney disease, stage 3 unspecified; D50.9 Iron deficiency anemia, unspecified; K59.00 Constipation, unspecified; E78.5 Hyperlipidemia, unspecified; Z87.891 Personal history of nicotine dependence; Z88.2 Allergy status to sulfonamides; Z79.82 Long term (current) use of aspirin; Z79.899 Other long term (current) drug therapy; W18.30XA Fall on same level, unspecified, initial encounter; Y92.009 Unspecified place in unspecified non-institutional (private) residence as the place of occurrence of the external cause

== ENCOUNTER → 2022-03-24 | Outpatient (CLI) | payer MEDICARE, BC, OTHER ==
[~2022-03-24] MED LIST changes: +ALBU2.5V10 INH; +DOCU100C16 PO; +METO25TA PO; +MUCI600T31 PO; +MULTCHW12 PO; +ONDA-196 PO; +OXYC-517 PO; +POLYOPD OU; +POTA20PW PO; +PSEU30TA86 PO
== END ==
LOC: M SOG 11:52
PROVIDERS: ATTEND Physician Assistant
DX: M25.511 Pain in right shoulder (principal); M25.512 Pain in left shoulder

== ENCOUNTER → 2022-04-07 | Outpatient (CLI) | payer MEDICARE, BC, OTHER | LOC: M SOG 08:37 | PROVIDERS: ATTEND Physician Assistant | DX: Z53.9 Procedure and treatment not carried out, unspecified reason (principal) ==

== ENCOUNTER 2022-04-20 09:33 | Observation (INO) | payer MEDICARE, BC, OTHER ==
[~2022-04-20] VITALS: Ht 152.4 cm; Wt 73.9 kg
[2022-04-20] VITALS (8 sets, daily range): BP systolic 118–153; BP diastolic 59–75
[~2022-04-20 09:33] MED LIST changes: +ARTIDRO4 OU; -POLYOPD OU
[2022-04-20] MEDS ORDERED: ROPIvacaine 0.5% 30ML VIAL PN ONE (10:15)
[2022-04-20] MEDS ORDERED: LIDOCAINE 1% SDV 5ML VIAL PN ONE (10:15)
[2022-04-20] MEDS ORDERED: LR 1,000 ML IV SCH ×2 (10:20→13:15)
[2022-04-20] MEDS ORDERED: ceFAZolin SOD 2 GM in IV 1 EA IV ONE (10:50)
[2022-04-20] MEDS: fentaNYL 100 MCG/2 ML INJECTION IV PRN ×2 (11:05→11:48)
[2022-04-20] MEDS: MIDAZOLAM INJ 2MG/2ML VIAL IV PRN ×2 (11:05→11:48)
[2022-04-20] MEDS ORDERED: fentaNYL 100 MCG/2 ML INJECTION As Ordered ONE ×2 (11:31→13:10)
[2022-04-20] MEDS ORDERED: ONDANSETRON 4MG 2ML VIAL As Ordered ONE (11:33)
[2022-04-20] MEDS ORDERED: TRANEXAMIC ACID 100 MG/ML 10ML VIAL As Ordered ONE (11:34)
[2022-04-20] MEDS ORDERED: VANCOMYCIN 1000MG/20ML VIAL As Ordered ONE (11:35)
[2022-04-20] MEDS ORDERED: LIDOCAINE W/EPINEPHRINE 1% 20ML VIAL As Ordered ONE (11:35)
[2022-04-20] MEDS ORDERED: SODIUM BICARBONATE 8.4% INJ 50MEQ 50ML VIAL As Ordered ONE (11:36)
[2022-04-20] MEDS ORDERED: propofoL 200 MG/20 ML VIAL As Ordered ONE (12:53)
[2022-04-20] MEDS ORDERED: ROCURONIUM BROMIDE 50MG/5ML VIAL As Ordered ONE ×2 (12:53→13:55)
[2022-04-20] MEDS ORDERED: oxyCODONE 5MG TAB PO PRN ×2 (13:15→15:15)
[2022-04-20] MEDS ORDERED: ONDANSETRON 4MG 2ML VIAL IV PRN (13:15)
[2022-04-20] MEDS ORDERED: fentaNYL 100 MCG/2 ML INJECTION IV PRN (13:15)
[2022-04-20] MEDS ORDERED: HYDROMORPHONE HCL 0.5 MG/ 0.5 ML SYRINGE IV PRN (13:15)
[2022-04-20] MEDS ORDERED: SUGAMMADEX SODIUM 500 MG/5 ML VIAL (BRIDION) As Ordered ONE (14:06)
[2022-04-20] MEDS ORDERED: MORPHINE 4 MG/ML 1ML VIAL IV PRN (15:15)
[2022-04-20] MEDS ORDERED: IBUPROFEN 600MG TAB PO PRN (15:15)
[2022-04-20] MEDS ORDERED: TORSEMIDE 20 MG TAB PO SCH (17:00)
[2022-04-20] MEDS ORDERED: ALBUTEROL SULFATE 2.5MG/0.5ML INH NEB SOLN INH PRN (17:00)
[2022-04-20] MEDS ORDERED: GLUCAGON INJ 1MG VIAL SC PRN (17:15)
[2022-04-20] MEDS ORDERED: GLUCOSE 4GM CHEW TABLET PO PRN (17:15)
[2022-04-20] MEDS ORDERED: DEXTROSE 50% 50ML SYRINGE IV PRN (17:15)
[2022-04-20] MEDS: INSULIN LISPRO (NovoLOG) PER UNIT SC SCH ×2 (18:12→21:51)
[2022-04-20 18:54] LABS: HEMATOCRIT 29.8 % (36.0-47.0); HEMOGLOBIN 9.3 g/dl (12.0-15.5); MEAN CORPUSCULAR HGB CONC 31.2 g/dl (32.0-36.5); MEAN CORPUSCULAR VOLUME 92.8 fl (80.0-96.0); PLATELET COUNT, AUTOMATED 497 10^3/uL (150-450); RED BLOOD COUNT 3.21 10^6/uL (4.00-5.40); WHITE BLOOD COUNT 13.1 10^3/uL (4.0-10.0)
[2022-04-20] MEDS ORDERED: HOME MED LIST COMPLETE! XX SCH (18:55)
[2022-04-20 19:19] LABS: CREATININE FOR GFR 1.08 MG/DL (0.55-1.30); GLOMERULAR FILTRATION RATE 52.7 (>39)
[2022-04-20] MEDS: ASPIRIN 81MG ENTERIC TABLET PO SCH (20:11)
[2022-04-20] MEDS: SIMVASTATIN 20 MG TAB PO SCH (20:11)
[2022-04-20] MEDS: PANTOPRAZOLE 40MG TAB (PROTONIX) PO SCH (20:12)
[2022-04-20] MEDS: ceFAZolin SOD 1 GM in D5W MINI-BAG PLUS 50 ML IV SCH (20:15)
[2022-04-21 01:59] VITALS: BP 118/61
[2022-04-21] MEDS: ceFAZolin SOD 1 GM in D5W MINI-BAG PLUS 50 ML IV SCH ×2 (04:21→12:32)
[2022-04-21 05:36] VITALS: BP 119/60
[2022-04-21 07:04] LABS: CALCIUM LEVEL 8.3 MG/DL (8.3-10.6); CREATININE FOR GFR 1.01 MG/DL (0.55-1.30); GLOMERULAR FILTRATION RATE 56.9 (>39); POTASSIUM SERUM 3.7 MMOL/L (3.5-5.1)
[2022-04-21 07:29] LABS: HEMATOCRIT 25.2 % (36.0-47.0); HEMOGLOBIN 7.8 g/dl (12.0-15.5); MEAN CORPUSCULAR HEMOGLOBIN 28.8 pg (27.0-33.0); PLATELET COUNT, AUTOMATED 463 10^3/uL (150-450); RED BLOOD COUNT 2.71 10^6/uL (4.00-5.40); WHITE BLOOD COUNT 11.8 10^3/uL (4.0-10.0)
[2022-04-21] MEDS ORDERED: INSULIN LISPRO (NovoLOG) PER UNIT SC SCH (07:30)
[2022-04-21] MEDS: INSULIN LISPRO (NovoLOG) PER UNIT SC SCH ×4 (08:08→20:03)
[2022-04-21] MEDS: PANTOPRAZOLE 40MG TAB (PROTONIX) PO SCH ×2 (08:09→20:41)
[2022-04-21] MEDS: TORSEMIDE 20 MG TAB PO SCH (08:09)
[2022-04-21] MEDS: oxyCODONE 5MG TAB PO PRN ×2 (10:43→20:42)
[2022-04-21] MEDS: MORPHINE 2 MG/ML 1ML VIAL IV PRN (14:05)
[2022-04-21 14:20] VITALS: BP 118/64
[2022-04-21] MEDS: SIMVASTATIN 20 MG TAB PO SCH (20:41)
[2022-04-21] MEDS: ASPIRIN 81MG ENTERIC TABLET PO SCH (20:41)
[2022-04-21] MEDS: ACETAMINOPHEN TAB 650MG DOSE (2X325MG) PO PRN (20:42)
[2022-04-21] MEDS: ENOXAPARIN 40MG/0.4ML SYRINGE (J1650 PER 10MG) SC SCH (20:43)
[2022-04-21 21:00] VITALS: BP 134/71
[2022-04-22] MEDS: oxyCODONE 5MG TAB PO PRN ×4 (02:24→18:39)
[2022-04-22] MEDS: ACETAMINOPHEN TAB 650MG DOSE (2X325MG) PO PRN ×4 (02:25→18:40)
[2022-04-22 05:57] VITALS: BP 138/87
[2022-04-22 08:07] LABS: CALCIUM LEVEL 8.5 MG/DL (8.3-10.6); CREATININE FOR GFR 1.03 MG/DL (0.55-1.30); GLOMERULAR FILTRATION RATE 55.6 (>39); POTASSIUM SERUM 3.6 MMOL/L (3.5-5.1)
[2022-04-22] MEDS: INSULIN LISPRO (NovoLOG) PER UNIT SC SCH ×4 (08:54→20:51)
[2022-04-22] MEDS: PANTOPRAZOLE 40MG TAB (PROTONIX) PO SCH ×2 (08:55→20:50)
[2022-04-22] MEDS: TORSEMIDE 20 MG TAB PO SCH (08:55)
[2022-04-22] MEDS ORDERED: SENNA 8.6 MG TAB (SENOKOT) PO PRN (09:45)
[2022-04-22] MEDS: MIRALAX *UNIT DOSE* 17GM PACKET PO SCH (10:38)
[2022-04-22] MEDS: MORPHINE 2 MG/ML 1ML VIAL IV PRN ×2 (11:27→20:49)
[2022-04-22 14:00] VITALS: BP 124/58
[2022-04-22] MEDS: ASPIRIN 81MG ENTERIC TABLET PO SCH (20:49)
[2022-04-22] MEDS: SIMVASTATIN 20 MG TAB PO SCH (20:50)
[2022-04-22] MEDS: ENOXAPARIN 40MG/0.4ML SYRINGE (J1650 PER 10MG) SC SCH (20:51)
[2022-04-22 22:00] VITALS: BP 121/65
[2022-04-23] MEDS: oxyCODONE 5MG TAB PO PRN ×2 (00:33→11:09)
[2022-04-23 06:00] VITALS: BP 124/64
[2022-04-23 07:22] LABS: HEMATOCRIT 28.3 % (36.0-47.0); HEMOGLOBIN 8.7 g/dl (12.0-15.5); MEAN CORPUSCULAR HEMOGLOBIN 28.6 pg (27.0-33.0); MEAN CORPUSCULAR HGB CONC 30.7 g/dl (32.0-36.5); MEAN CORPUSCULAR VOLUME 93.1 fl (80.0-96.0); PLATELET COUNT, AUTOMATED 506 10^3/uL (150-450); RED BLOOD COUNT 3.04 10^6/uL (4.00-5.40); WHITE BLOOD COUNT 10.8 10^3/uL (4.0-10.0)
[2022-04-23] MEDS: PANTOPRAZOLE 40MG TAB (PROTONIX) PO SCH (08:33)
[2022-04-23] MEDS: TORSEMIDE 20 MG TAB PO SCH (08:33)
[2022-04-23] MEDS: MIRALAX *UNIT DOSE* 17GM PACKET PO SCH (08:35)
[2022-04-23] MEDS: MORPHINE 2 MG/ML 1ML VIAL IV PRN (08:35)
[2022-04-23] MEDS: INSULIN LISPRO (NovoLOG) PER UNIT SC SCH (08:36)
[2022-04-23] MEDS: ACETAMINOPHEN TAB 650MG DOSE (2X325MG) PO PRN (11:09)
== END 2022-04-23 12:55 | disposition other institution (70) ==
LOC: M SDC 09:33 → M MS5PR 15:55 → M SDC 16:10 → M MS5PR 16:11 → INTOOBSV 16:11
PROVIDERS: ADMIT Internal Medicine; ATTEND Orthopaedic Surgery Hand Surgery
DX: S42.202A Unspecified fracture of upper end of left humerus, initial encounter for closed fracture (principal); W19.XXXA Unspecified fall, initial encounter; Y92.89 Other specified places as the place of occurrence of the external cause; Y93.9 Activity, unspecified; Y99.9 Unspecified external cause status; J44.9 Chronic obstructive pulmonary disease, unspecified; E11.9 Type 2 diabetes mellitus without complications; K21.9 Gastro-esophageal reflux disease without esophagitis; M06.9 Rheumatoid arthritis, unspecified; D50.9 Iron deficiency anemia, unspecified; J96.90 Respiratory failure, unspecified, unspecified whether with hypoxia or hypercapnia; Z99.81 Dependence on supplemental oxygen; Z79.82 Long term (current) use of aspirin; Z79.899 Other long term (current) drug therapy; Z79.4 Long term (current) use of insulin; Z88.2 Allergy status to sulfonamides; Z91.018 Allergy to other foods
CPT/HCPCS: 23472; 36415; 73020; 80048; 85027; 87635; 96365; 96366; 96372; 96375; 96376; 97110; 97116; 97162; 97165; 97530; 97535; C1713; C1773; C1776; G0378; J0690; J1100; J1650; J1815; J2250; J2405; J2795; J3010

== ENCOUNTER → 2022-06-09 | Outpatient (CLI) | payer MEDICARE, BC, OTHER | LOC: M SOG 08:39 | PROVIDERS: ATTEND Physician Assistant | DX: S42.242D 4-part fracture of surgical neck of left humerus, subsequent encounter for fracture with routine healing (principal); S42.241D 4-part fracture of surgical neck of right humerus, subsequent encounter for fracture with routine healing; Z96.611 Presence of right artificial shoulder joint; Z96.612 Presence of left artificial shoulder joint ==

== ENCOUNTER → 2022-07-11 | Outpatient (CLI) | payer MEDICARE, BC, OTHER | LOC: M SOG 10:26 | PROVIDERS: ATTEND Physician Assistant | DX: S42.241D 4-part fracture of surgical neck of right humerus, subsequent encounter for fracture with routine healing (principal); M85.88 Other specified disorders of bone density and structure, other site; Z98.890 Other specified postprocedural states; Z96.611 Presence of right artificial shoulder joint; Z96.612 Presence of left artificial shoulder joint ==

== ENCOUNTER → 2022-10-20 | Outpatient (CLI) | payer MEDICARE, BC, OTHER ==
[~2022-10-20] MED LIST changes: -HYDR200T3; -HYDR200T3 PO; +HYDR200T46; +HYDR200T46 PO
[2022-10-20 18:37] LABS: BASO # 0.1 10^3/uL (0.0-0.2); BASO % 1.1 % (0.0-1.0); EOS # 0.3 10^3/uL (0.0-0.5); EOS % 4.1 % (0.0-3.0); HEMATOCRIT 33.7 % (36.0-47.0); HEMOGLOBIN 9.8 g/dl (12.0-15.5); LYMPH # 3.3 10^3/uL (1.5-5.0); LYMPH % 39.4 % (24.0-44.0); MEAN CORPUSCULAR HEMOGLOBIN 27.5 pg (27.0-33.0); MEAN CORPUSCULAR HGB CONC 29.1 g/dl (32.0-36.5); MEAN CORPUSCULAR VOLUME 94.4 fl (80.0-96.0); MONO # 0.9 10^3/uL (0.0-0.8); MONO % 10.7 % (2.0-8.0); NEUTROPHILS # 3.7 10^3/uL (1.5-8.5); NEUTROPHILS % 44.5 % (36.0-66.0); PLATELET COUNT, AUTOMATED 459 10^3/uL (150-450); RED BLOOD COUNT 3.57 10^6/uL (4.00-5.40); WHITE BLOOD COUNT 8.3 10^3/uL (4.0-10.0)
[2022-10-20 18:53] LABS: ERYTHROCYTE SEDIMENTATION RATE 33 mm/hr (0-30)
[2022-10-20 19:05] LABS: C REACTIVE PROTEIN QUANTITATIV < 0.40 MG/DL (<1.0)
[2022-10-20 19:07] LABS: ALBUMIN 3.5 G/DL (3.2-5.2); ALKALINE PHOSPHATASE 73 U/L (46-116); ALT/SGPT 17 U/L (7.0-40); AST/SGOT 15 U/L (<34); BILIRUBIN,DIRECT < 0.1 MG/DL (<0.4); BILIRUBIN,TOTAL < 0.2 MG/DL (0.3-1.2); BLOOD UREA NITROGEN 15 MG/DL (9-23); CALCIUM LEVEL 9.1 MG/DL (8.3-10.6); CARBON DIOXIDE LEVEL 32 MMOL/L (20-31); CHLORIDE LEVEL 100 MMOL/L (98-107); CREATININE FOR GFR 1.03 MG/DL (0.55-1.30); GLOMERULAR FILTRATION RATE 55.5 (>39); GLUCOSE, FASTING 121 MG/DL (74-106); POTASSIUM SERUM 4.7 MMOL/L (3.5-5.1); SODIUM LEVEL 140 MMOL/L (136-145); TOTAL PROTEIN 6.9 G/DL (5.7-8.2)
== END ==
LOC: M WUC 13:45
PROVIDERS: ATTEND Internal Medicine
DX: M05.79 Rheumatoid arthritis with rheumatoid factor of multiple sites without organ or systems involvement (principal)

== ENCOUNTER → 2022-10-20 | Outpatient (CLI) | payer MEDICARE, BC, OTHER | LOC: M WUC 13:43 | PROVIDERS: ATTEND Registered Nurse | DX: E11.22 Type 2 diabetes mellitus with diabetic chronic kidney disease (principal) ==

== ENCOUNTER → 2022-11-22 | Outpatient (REF) | payer MEDICARE, OTHER ==
[2022-11-22 17:58] LABS: PERCENT SATURATION 8.1 % (13.2-45.0)
[2022-11-22 18:01] LABS: FERRITIN 16.1 NG/ML (7.3-270.7)
== END ==
LOC: M LAB REF 16:54
PROVIDERS: ATTEND Nurse Practitioner Family
DX: D50.9 Iron deficiency anemia, unspecified (principal)

== ENCOUNTER 2022-12-15 16:00 | Outpatient (CLI) | payer MEDICARE, BC, OTHER ==
[~2022-12-15] VITALS: Ht 149.9 cm; Wt 70.5 kg
[~2022-12-15 16:00] MED LIST changes: +ALBUTEROL SULFATE 2.5MG/0.5ML INH NEB SOLN INH PRN; +EPINEPHrine INJ 1 MG/ML 1ML AMP IM PRN; +diphenhydrAMINE 50MG/ML VIAL IV PRN; +methylPREDNISolone 125MG 2ML VIAL IV PRN
[2022-12-15 16:23] VITALS: BP 185/90; O2SAT 97
[2022-12-15] MEDS ORDERED: NS 1,000 ML IV SCH (16:25)
[2022-12-15] MEDS ORDERED: FERRIC CARBOXYMALTOSE INJ 750 MG in NS 250 ML (>50kg) IV ONE ×3 (16:40)
[2022-12-15 18:09] VITALS: BP 132/72; O2SAT 96
== END 2022-12-15 18:10 ==
LOC: M INFU 16:00
PROVIDERS: ATTEND Nurse Practitioner Family
DX: D50.9 Iron deficiency anemia, unspecified (principal); Z88.2 Allergy status to sulfonamides; Z91.018 Allergy to other foods
CPT/HCPCS: 96365; J1439

== ENCOUNTER 2022-12-22 14:06 | Outpatient (CLI) | payer MEDICARE, BC, OTHER ==
[~2022-12-22] VITALS: Ht 157.5 cm; Wt 70.4 kg
[2022-12-22 14:14] VITALS: BP 144/79; O2SAT 97
[2022-12-22] MEDS ORDERED: NS 1,000 ML IV SCH (14:20)
[2022-12-22] MEDS ORDERED: FERRIC CARBOXYMALTOSE INJ 750 MG in NS 250 ML (>50kg) IV ONE ×3 (14:20)
[2022-12-22 14:50] VITALS: BP 146/66; O2SAT 98
[2022-12-22 15:40] VITALS: BP 146/66; O2SAT 98
== END 2022-12-22 15:40 | disposition home or self-care (01) ==
LOC: M INFU 14:06
PROVIDERS: ATTEND Nurse Practitioner Family
DX: D50.9 Iron deficiency anemia, unspecified (principal); Z88.2 Allergy status to sulfonamides
CPT/HCPCS: 96365; J1439

== ENCOUNTER 2023-01-13 12:42 | Inpatient (IN) | payer MEDICARE, BC, OTHER ==
[~2023-01-13] VITALS: Ht 149.9 cm; Wt 70.2 kg
[~2023-01-13 12:42] MED LIST changes: -ALBUTEROL SULFATE 2.5MG/0.5ML INH NEB SOLN INH PRN; -EPINEPHrine INJ 1 MG/ML 1ML AMP IM PRN; -diphenhydrAMINE 50MG/ML VIAL IV PRN; -methylPREDNISolone 125MG 2ML VIAL IV PRN
[2023-01-13] MEDS ORDERED: MORPHINE 2 MG/ML 1ML VIAL IV ONE (13:10)
[2023-01-13] MEDS ORDERED: diazePAM 10MG/2ML SYRINGE IV ONE (13:10)
[2023-01-13 14:03] LABS: BASO # 0.1 10^3/uL (0.0-0.2); BASO % 0.7 % (0.0-1.0); EOS # 0.2 10^3/uL (0.0-0.5); HEMATOCRIT 37.5 % (36.0-47.0); HEMOGLOBIN 10.9 g/dl (12.0-15.5); LYMPH # 1.6 10^3/uL (1.5-5.0); LYMPH % 17.8 % (24.0-44.0); MEAN CORPUSCULAR HEMOGLOBIN 29.2 pg (27.0-33.0); MEAN CORPUSCULAR HGB CONC 29.1 g/dl (32.0-36.5); MEAN CORPUSCULAR VOLUME 100.5 fl (80.0-96.0); MONO # 0.7 10^3/uL (0.0-0.8); MONO % 7.1 % (2.0-8.0); NEUTROPHILS # 6.6 10^3/uL (1.5-8.5); NEUTROPHILS % 71.9 % (36.0-66.0); PLATELET COUNT, AUTOMATED 300 10^3/uL (150-450); RED BLOOD COUNT 3.73 10^6/uL (4.00-5.40); WHITE BLOOD COUNT 9.2 10^3/uL (4.0-10.0)
[2023-01-13 14:25] LABS: BLOOD UREA NITROGEN 12 MG/DL (9-23); CALCIUM LEVEL 8.8 MG/DL (8.3-10.6); CARBON DIOXIDE LEVEL 34 MMOL/L (20-31); CHLORIDE LEVEL 104 MMOL/L (98-107); CREATININE FOR GFR 0.83 MG/DL (0.55-1.30); GLOMERULAR FILTRATION RATE > 60.0 (>39); GLUCOSE, FASTING 120 MG/DL (74-106); SODIUM LEVEL 141 MMOL/L (136-145)
[2023-01-13] MEDS ORDERED: oxyCODONE 5MG TAB PO ONE (15:35)
[2023-01-13 16:42] LABS: RSV AMPLIFICATION NEGATIVE (NEGATIVE)
[2023-01-13] MEDS ORDERED: MED REC IN PROGRESS XX SCH (17:05)
[2023-01-13] MEDS ORDERED: KETOROLAC 30 MG/ML 1ML VIAL IV PRN (17:55)
[2023-01-13] MEDS ORDERED: PERCOCET 5MG/325MG TAB PO PRN ×3 (17:55→20:35)
[2023-01-13] MEDS ORDERED: DEXTROSE 50% 50ML SYRINGE IV PRN (18:00)
[2023-01-13] MEDS ORDERED: GLUCOSE 4GM CHEW TABLET PO PRN (18:00)
[2023-01-13] MEDS ORDERED: GLUCAGON INJ 1MG VIAL SC PRN (18:00)
[2023-01-13] MEDS ORDERED: LABETALOL 100MG/20ML VIAL IV PRN (18:00)
[2023-01-13] MEDS ORDERED: tiZANidine 4 MG TAB PO ONE ×2 (18:30→21:00)
[2023-01-13] MEDS ORDERED: HOME MED LIST COMPLETE! XX SCH (19:35)
[2023-01-13] MEDS: INSULIN LISPRO (NovoLOG) PER UNIT SC SCH (21:00)
[2023-01-13] MEDS: predniSONE 20 MG TAB PO SCH (21:03)
[2023-01-13] MEDS: amLODIPine 5 MG TAB PO SCH (21:04)
[2023-01-13] MEDS: ONDANSETRON 4MG 2ML VIAL IV PRN (21:22)
[2023-01-13 22:30] VITALS: BP 171/83; TEMP 97.7; O2SAT 95
[2023-01-14] MEDS: tiZANidine 4 MG TAB PO SCH ×5 (00:52→21:19)
[2023-01-14 02:30] VITALS: BP 139/63; TEMP 97.5; O2SAT 97
[2023-01-14] MEDS: ONDANSETRON 4MG 2ML VIAL IV PRN ×2 (03:18→20:01)
[2023-01-14] MEDS: HYDROmorphone 2 MG TAB PO PRN ×2 (03:19→20:01)
[2023-01-14 05:40] VITALS: BP 163/82; TEMP 97.5; O2SAT 96
[2023-01-14 05:45] LABS: HEMOGLOBIN 9.6 g/dl (12.0-15.5); MEAN CORPUSCULAR HEMOGLOBIN 29.9 pg (27.0-33.0); MEAN CORPUSCULAR VOLUME 99.7 fl (80.0-96.0); PLATELET COUNT, AUTOMATED 254 10^3/uL (150-450); RED BLOOD COUNT 3.21 10^6/uL (4.00-5.40); WHITE BLOOD COUNT 7.2 10^3/uL (4.0-10.0)
[2023-01-14 06:11] LABS: BLOOD UREA NITROGEN 11 MG/DL (9-23); CALCIUM LEVEL 9.1 MG/DL (8.3-10.6); CARBON DIOXIDE LEVEL 34 MMOL/L (20-31); CHLORIDE LEVEL 100 MMOL/L (98-107); CREATININE FOR GFR 0.74 MG/DL (0.55-1.30); GLOMERULAR FILTRATION RATE > 60.0 (>39); GLUCOSE, FASTING 154 MG/DL (74-106); POTASSIUM SERUM 4.7 MMOL/L (3.5-5.1); SODIUM LEVEL 139 MMOL/L (136-145)
[2023-01-14 06:18] LABS: PROCALCITONIN 0.14 ng/ml
[2023-01-14] MEDS: predniSONE 20 MG TAB PO SCH (08:14)
[2023-01-14] MEDS: amLODIPine 5 MG TAB PO SCH (08:14)
[2023-01-14] MEDS: ENOXAPARIN 40MG/0.4ML SYRINGE (J1650 PER 10MG) SC SCH (08:14)
[2023-01-14] MEDS: INSULIN LISPRO (NovoLOG) PER UNIT SC SCH ×4 (08:15→20:15)
[2023-01-14 13:04] VITALS: BP 173/87; TEMP 97; O2SAT 97
[2023-01-14] MEDS: CALCITONIN NASAL SPRAY 3.7ML BTL SCH (14:17)
[2023-01-14 22:00] VITALS: BP 160/70; TEMP 97.6; O2SAT 96
[2023-01-15 02:00] VITALS: BP 142/80; TEMP 97.4; O2SAT 99
[2023-01-15] MEDS: tiZANidine 4 MG TAB PO SCH ×3 (05:50→22:56)
[2023-01-15] MEDS: ONDANSETRON 4MG 2ML VIAL IV PRN ×2 (05:50→20:19)
[2023-01-15] MEDS: INSULIN LISPRO (NovoLOG) PER UNIT SC SCH ×4 (07:30→20:33)
[2023-01-15] MEDS: CALCITONIN NASAL SPRAY 3.7ML BTL SCH (09:06)
[2023-01-15] MEDS: amLODIPine 5 MG TAB PO SCH (09:06)
[2023-01-15] MEDS ORDERED: MIRALAX *UNIT DOSE* 17GM PACKET PO PRN (09:25)
[2023-01-15] MEDS ORDERED: SENNA 8.6 MG TAB (SENOKOT) PO PRN (09:25)
[2023-01-15 10:00] VITALS: BP 143/71; TEMP 96.4; O2SAT 93
[2023-01-15] MEDS ORDERED: MORPHINE 4 MG/ML 1ML VIAL IV ONE (10:30)
[2023-01-15] MEDS ORDERED: ALBUTEROL 90 MCG/ACT 8GM HFA INHALER INH PRN (11:40)
[2023-01-15] MEDS ORDERED: guaiFENesin ER TABLET 600 MG TAB PO PRN (11:40)
[2023-01-15] MEDS ORDERED: ALBUTEROL SULFATE 2.5MG/0.5ML INH NEB SOLN INH PRN (11:40)
[2023-01-15] MEDS ORDERED: metOLazone 2.5 MG TAB PO PRN (11:40)
[2023-01-15] MEDS ORDERED: PSEUDOEPHEDRINE 30 MG TAB PO PRN (11:40)
[2023-01-15] MEDS: PANTOPRAZOLE 40MG TAB (PROTONIX) PO SCH ×2 (12:07→20:22)
[2023-01-15] MEDS: predniSONE 20 MG TAB PO SCH (12:07)
[2023-01-15] MEDS: TORSEMIDE 20 MG TAB PO SCH (12:08)
[2023-01-15] MEDS: DOCUSATE SODIUM 100MG CAPSULE PO SCH ×2 (12:08→20:22)
[2023-01-15] MEDS: ENOXAPARIN 40MG/0.4ML SYRINGE (J1650 PER 10MG) SC SCH (12:08)
[2023-01-15] MEDS: OMEGA-3 1000MG CAPSULE PO SCH ×3 (12:08→20:32)
[2023-01-15] MEDS: LIDOCAINE 5% (LIDODERM) PATCH TD SCH (12:08)
[2023-01-15] MEDS: SYMBICORT 160/4.5MCG INHALER 6GM INH SCH ×2 (13:23→19:48)
[2023-01-15 14:00] VITALS: BP 144/72; TEMP 97.5; O2SAT 92
[2023-01-15] MEDS: HYDROmorphone 2 MG TAB PO PRN ×2 (14:14→20:22)
[2023-01-15 18:00] VITALS: BP 133/62; TEMP 97.3; O2SAT 95
[2023-01-15] MEDS: SIMVASTATIN 20 MG TAB PO SCH (20:19)
[2023-01-15] MEDS: ASPIRIN 81MG ENTERIC TABLET PO SCH (20:22)
[2023-01-15 22:00] VITALS: BP 130/70; TEMP 97.6; O2SAT 95
[2023-01-16 02:00] VITALS: BP 111/57; TEMP 96.8; O2SAT 97
[2023-01-16] MEDS: tiZANidine 4 MG TAB PO SCH ×3 (05:36→21:08)
[2023-01-16 05:53] LABS: HEMATOCRIT 32.6 % (36.0-47.0); HEMOGLOBIN 9.9 g/dl (12.0-15.5); MEAN CORPUSCULAR HEMOGLOBIN 29.5 pg (27.0-33.0); MEAN CORPUSCULAR HGB CONC 30.4 g/dl (32.0-36.5); PLATELET COUNT, AUTOMATED 277 10^3/uL (150-450); RED BLOOD COUNT 3.36 10^6/uL (4.00-5.40); WHITE BLOOD COUNT 7.1 10^3/uL (4.0-10.0)
[2023-01-16 06:04] VITALS: BP 158/78; TEMP 97.5; O2SAT 96
[2023-01-16] MEDS: SYMBICORT 160/4.5MCG INHALER 6GM INH SCH ×2 (07:44→20:23)
[2023-01-16] MEDS: PANTOPRAZOLE 40MG TAB (PROTONIX) PO SCH ×2 (08:02→21:08)
[2023-01-16] MEDS: predniSONE 20 MG TAB PO SCH (08:03)
[2023-01-16] MEDS: DOCUSATE SODIUM 100MG CAPSULE PO SCH ×2 (08:03→21:08)
[2023-01-16] MEDS: amLODIPine 5 MG TAB PO SCH (08:03)
[2023-01-16] MEDS: TORSEMIDE 20 MG TAB PO SCH (08:03)
[2023-01-16] MEDS: LIDOCAINE 5% (LIDODERM) PATCH TD SCH ×2 (08:04→08:17)
[2023-01-16] MEDS: INSULIN LISPRO (NovoLOG) PER UNIT SC SCH ×4 (08:04→20:44)
[2023-01-16] MEDS: ENOXAPARIN 40MG/0.4ML SYRINGE (J1650 PER 10MG) SC SCH (08:04)
[2023-01-16] MEDS: OMEGA-3 1000MG CAPSULE PO SCH ×2 (08:06→21:00)
[2023-01-16] MEDS: HYDROmorphone 2 MG TAB PO PRN ×2 (08:14→18:25)
[2023-01-16 10:00] VITALS: BP 147/82; TEMP 96.6; O2SAT 93
[2023-01-16] MEDS ORDERED: ISOVUE-370 76% 100ML VIAL As Ordered ONE (11:25)
[2023-01-16 14:00] VITALS: BP 143/72; TEMP 97.3; O2SAT 93
[2023-01-16 20:40] VITALS: BP 133/56; TEMP 97.2; O2SAT 95
[2023-01-16] MEDS: ASPIRIN 81MG ENTERIC TABLET PO SCH (21:08)
[2023-01-16] MEDS: SIMVASTATIN 20 MG TAB PO SCH (21:08)
[2023-01-16] MEDS: PERCOCET 5MG/325MG TAB PO PRN (21:09)
[2023-01-17] MEDS: HYDROmorphone 2 MG TAB PO PRN (02:19)
[2023-01-17 05:30] VITALS: BP 153/75; TEMP 97.9; O2SAT 98
[2023-01-17] MEDS: PERCOCET 5MG/325MG TAB PO PRN ×2 (05:49→12:18)
[2023-01-17] MEDS: tiZANidine 4 MG TAB PO SCH (05:49)
[2023-01-17] MEDS: DOCUSATE SODIUM 100MG CAPSULE PO SCH ×2 (08:02→21:05)
[2023-01-17] MEDS: predniSONE 20 MG TAB PO SCH (08:02)
[2023-01-17] MEDS: TORSEMIDE 20 MG TAB PO SCH (08:02)
[2023-01-17] MEDS: PANTOPRAZOLE 40MG TAB (PROTONIX) PO SCH ×2 (08:03→21:05)
[2023-01-17] MEDS: INSULIN LISPRO (NovoLOG) PER UNIT SC SCH ×4 (08:03→21:00)
[2023-01-17] MEDS: LIDOCAINE 5% (LIDODERM) PATCH TD SCH ×2 (08:04→12:17)
[2023-01-17] MEDS: ENOXAPARIN 40MG/0.4ML SYRINGE (J1650 PER 10MG) SC SCH (08:04)
[2023-01-17] MEDS: OMEGA-3 1000MG CAPSULE PO SCH ×3 (08:05→21:05)
[2023-01-17] MEDS: amLODIPine 5 MG TAB PO SCH (08:05)
[2023-01-17] MEDS: SYMBICORT 160/4.5MCG INHALER 6GM INH SCH ×2 (08:45→22:16)
[2023-01-17 14:00] VITALS: BP 141/68; TEMP 97.7; O2SAT 97
[2023-01-17] MEDS ORDERED: methylPREDNISolone 125MG 2ML VIAL IV ONE (14:00)
[2023-01-17] MEDS: CYCLOBENZAPRINE 10MG TABLET PO SCH ×2 (14:25→22:00)
[2023-01-17] MEDS: KETOROLAC 30 MG/ML 1ML VIAL IV SCH ×2 (14:25→21:06)
[2023-01-17] MEDS: MIRALAX *UNIT DOSE* 17GM PACKET PO SCH ×2 (14:26→21:05)
[2023-01-17] MEDS: METAMUCIL (PSYLLIUM) PACKET PO SCH ×2 (14:26→21:04)
[2023-01-17] MEDS: DICLOFENAC EPOLAMINE 1.3% PATCH TOP SCH ×2 (14:26→21:05)
[2023-01-17] MEDS ORDERED: SENNA 8.6 MG TAB (SENOKOT) PO SCH (15:00)
[2023-01-17] MEDS: GABAPENTIN 100 MG CAP PO SCH ×2 (16:48→21:05)
[2023-01-17] MEDS: ACETAMINOPHEN 500 MG TAB PO SCH (16:49)
[2023-01-17] MEDS: SIMVASTATIN 20 MG TAB PO SCH (21:05)
[2023-01-17 21:10] VITALS: BP 160/74; TEMP 96.8; O2SAT 96
[2023-01-18] MEDS: KETOROLAC 30 MG/ML 1ML VIAL IV SCH ×2 (02:00→08:12)
[2023-01-18 05:30] VITALS: BP 140/70; TEMP 97; O2SAT 97
[2023-01-18] MEDS: CYCLOBENZAPRINE 10MG TABLET PO SCH ×3 (05:48→21:11)
[2023-01-18] MEDS: ACETAMINOPHEN 500 MG TAB PO SCH ×5 (05:48→23:42)
[2023-01-18] MEDS: LIDOCAINE 5% (LIDODERM) PATCH TD SCH (08:12)
[2023-01-18] MEDS: PANTOPRAZOLE 40MG TAB (PROTONIX) PO SCH ×2 (08:13→21:10)
[2023-01-18] MEDS: GABAPENTIN 100 MG CAP PO SCH ×3 (08:13→21:11)
[2023-01-18] MEDS: DOCUSATE SODIUM 100MG CAPSULE PO SCH ×2 (08:13→20:38)
[2023-01-18] MEDS: DICLOFENAC EPOLAMINE 1.3% PATCH TOP SCH ×2 (08:13→21:10)
[2023-01-18] MEDS: MIRALAX *UNIT DOSE* 17GM PACKET PO SCH ×2 (08:14→20:38)
[2023-01-18] MEDS: METAMUCIL (PSYLLIUM) PACKET PO SCH ×2 (08:14→20:38)
[2023-01-18] MEDS: INSULIN LISPRO (NovoLOG) PER UNIT SC SCH ×4 (08:14→21:10)
[2023-01-18] MEDS: ENOXAPARIN 40MG/0.4ML SYRINGE (J1650 PER 10MG) SC SCH (08:15)
[2023-01-18] MEDS: amLODIPine 5 MG TAB PO SCH (08:16)
[2023-01-18] MEDS: TORSEMIDE 20 MG TAB PO SCH (08:16)
[2023-01-18] MEDS: OMEGA-3 1000MG CAPSULE PO SCH ×3 (08:16→21:10)
[2023-01-18] MEDS: SYMBICORT 160/4.5MCG INHALER 6GM INH SCH ×2 (08:37→19:28)
[2023-01-18] MEDS: LACTULOSE 20GM/30ML SYRUP UDC PO SCH ×5 (12:16→23:36)
[2023-01-18] MEDS: SENNA 8.6 MG TAB (SENOKOT) PO SCH (12:16)
[2023-01-18 14:00] VITALS: BP 128/68; TEMP 97.5; O2SAT 94
[2023-01-18] MEDS ORDERED: methylPREDNISolone 125MG 2ML VIAL IV ONE (17:00)
[2023-01-18 20:36] VITALS: BP 139/76; TEMP 97; O2SAT 93
[2023-01-18] MEDS: SIMVASTATIN 20 MG TAB PO SCH (21:10)
[2023-01-18] MEDS: oxyCODONE 5MG TAB PO PRN (21:12)
[2023-01-19] MEDS: LACTULOSE 20GM/30ML SYRUP UDC PO SCH ×2 (03:00→05:14)
[2023-01-19] MEDS: oxyCODONE 5MG TAB PO PRN ×3 (03:07→19:43)
[2023-01-19] MEDS: ACETAMINOPHEN 500 MG TAB PO SCH ×3 (05:29→17:12)
[2023-01-19 05:30] VITALS: BP 140/76; TEMP 97.5; O2SAT 98
[2023-01-19] MEDS: CYCLOBENZAPRINE 10MG TABLET PO SCH ×3 (05:30→21:04)
[2023-01-19] MEDS: INSULIN LISPRO (NovoLOG) PER UNIT SC SCH ×4 (08:01→21:00)
[2023-01-19] MEDS: GABAPENTIN 100 MG CAP PO SCH ×3 (08:01→21:05)
[2023-01-19] MEDS: PANTOPRAZOLE 40MG TAB (PROTONIX) PO SCH ×2 (08:01→21:04)
[2023-01-19] MEDS: DOCUSATE SODIUM 100MG CAPSULE PO SCH (08:02)
[2023-01-19] MEDS: ENOXAPARIN 40MG/0.4ML SYRINGE (J1650 PER 10MG) SC SCH (08:02)
[2023-01-19] MEDS: OMEGA-3 1000MG CAPSULE PO SCH ×2 (08:03→21:00)
[2023-01-19] MEDS: TORSEMIDE 20 MG TAB PO SCH (08:03)
[2023-01-19] MEDS: METAMUCIL (PSYLLIUM) PACKET PO SCH (08:03)
[2023-01-19] MEDS: MIRALAX *UNIT DOSE* 17GM PACKET PO SCH (08:03)
[2023-01-19] MEDS: amLODIPine 5 MG TAB PO SCH (08:03)
[2023-01-19] MEDS: LIDOCAINE 5% (LIDODERM) PATCH TD SCH (08:04)
[2023-01-19] MEDS: SYMBICORT 160/4.5MCG INHALER 6GM INH SCH ×2 (08:17→19:24)
[2023-01-19 08:19] VITALS: BP 137/76; TEMP 97; O2SAT 98
[2023-01-19] MEDS: DICLOFENAC EPOLAMINE 1.3% PATCH TOP SCH ×2 (10:00→21:03)
[2023-01-19] MEDS: SENNA 8.6 MG TAB (SENOKOT) PO SCH (11:18)
[2023-01-19] MEDS: IBUPROFEN 400MG TAB PO PRN ×2 (11:48→21:04)
[2023-01-19 13:46] VITALS: BP 138/72; TEMP 97.7; O2SAT 97
[2023-01-19] MEDS: SIMVASTATIN 20 MG TAB PO SCH (21:04)
[2023-01-19 21:10] VITALS: BP 143/73; TEMP 97.5; O2SAT 95
[2023-01-20] MEDS: ACETAMINOPHEN 500 MG TAB PO SCH ×4 (00:11→18:05)
[2023-01-20 05:15] VITALS: BP 148/69; TEMP 97.2; O2SAT 96
[2023-01-20] MEDS: CYCLOBENZAPRINE 10MG TABLET PO SCH ×3 (06:06→21:45)
[2023-01-20] MEDS: SYMBICORT 160/4.5MCG INHALER 6GM INH SCH ×2 (07:57→20:58)
[2023-01-20] MEDS: OMEGA-3 1000MG CAPSULE PO SCH ×3 (08:02→21:00)
[2023-01-20] MEDS: ENOXAPARIN 40MG/0.4ML SYRINGE (J1650 PER 10MG) SC SCH (08:03)
[2023-01-20] MEDS: PANTOPRAZOLE 40MG TAB (PROTONIX) PO SCH ×2 (08:03→21:45)
[2023-01-20] MEDS: DICLOFENAC EPOLAMINE 1.3% PATCH TOP SCH ×2 (08:03→21:47)
[2023-01-20] MEDS: LIDOCAINE 5% (LIDODERM) PATCH TD SCH (08:03)
[2023-01-20] MEDS: INSULIN LISPRO (NovoLOG) PER UNIT SC SCH ×4 (08:03→21:00)
[2023-01-20] MEDS: GABAPENTIN 100 MG CAP PO SCH ×3 (08:03→21:46)
[2023-01-20] MEDS: oxyCODONE 5MG TAB PO PRN ×3 (08:04→21:47)
[2023-01-20] MEDS: IBUPROFEN 400MG TAB PO PRN ×2 (08:04→14:31)
[2023-01-20] MEDS: TORSEMIDE 20 MG TAB PO SCH (08:04)
[2023-01-20] MEDS: amLODIPine 5 MG TAB PO SCH (08:07)
[2023-01-20 08:44] LABS: HEMATOCRIT 35.8 % (36.0-47.0); HEMOGLOBIN 10.8 g/dl (12.0-15.5); MEAN CORPUSCULAR HEMOGLOBIN 30.2 pg (27.0-33.0); MEAN CORPUSCULAR HGB CONC 30.2 g/dl (32.0-36.5); PLATELET COUNT, AUTOMATED 368 10^3/uL (150-450); RED BLOOD COUNT 3.58 10^6/uL (4.00-5.40); WHITE BLOOD COUNT 8.2 10^3/uL (4.0-10.0)
[2023-01-20 09:11] LABS: CALCIUM LEVEL 8.7 MG/DL (8.3-10.6); CREATININE FOR GFR 1.22 MG/DL (0.55-1.30); GLOMERULAR FILTRATION RATE 45.6 (>39); POTASSIUM SERUM 3.8 MMOL/L (3.5-5.1)
[2023-01-20] MEDS: SENNA 8.6 MG TAB (SENOKOT) PO SCH (13:26)
[2023-01-20 14:00] VITALS: BP 131/62; TEMP 97.5; O2SAT 93
[2023-01-20] MEDS ORDERED: LR 1,000 ML IV SCH (15:15)
[2023-01-20] MEDS: SIMVASTATIN 20 MG TAB PO SCH (21:45)
[2023-01-21] MEDS: ACETAMINOPHEN 500 MG TAB PO SCH ×5 (00:24→23:13)
[2023-01-21 01:30] VITALS: BP 126/72; TEMP 97.3; O2SAT 97
[2023-01-21 05:23] VITALS: BP 125/68; TEMP 97; O2SAT 98
[2023-01-21] MEDS: oxyCODONE 5MG TAB PO PRN ×4 (05:47→23:14)
[2023-01-21] MEDS: CYCLOBENZAPRINE 10MG TABLET PO SCH ×3 (05:47→21:11)
[2023-01-21] MEDS: SYMBICORT 160/4.5MCG INHALER 6GM INH SCH ×2 (07:36→20:00)
[2023-01-21] MEDS: PANTOPRAZOLE 40MG TAB (PROTONIX) PO SCH ×2 (08:05→20:04)
[2023-01-21] MEDS: GABAPENTIN 100 MG CAP PO SCH ×3 (08:05→20:04)
[2023-01-21] MEDS: INSULIN LISPRO (NovoLOG) PER UNIT SC SCH ×4 (08:06→20:05)
[2023-01-21] MEDS: TORSEMIDE 20 MG TAB PO SCH (08:06)
[2023-01-21] MEDS: ENOXAPARIN 40MG/0.4ML SYRINGE (J1650 PER 10MG) SC SCH (08:06)
[2023-01-21] MEDS: OMEGA-3 1000MG CAPSULE PO SCH ×2 (08:07→20:04)
[2023-01-21] MEDS: LIDOCAINE 5% (LIDODERM) PATCH TD SCH (08:07)
[2023-01-21] MEDS: amLODIPine 5 MG TAB PO SCH (08:07)
[2023-01-21] MEDS: DICLOFENAC EPOLAMINE 1.3% PATCH TOP SCH ×2 (08:07→20:04)
[2023-01-21 08:28] LABS: CALCIUM LEVEL 8.9 MG/DL (8.3-10.6); CREATININE FOR GFR 1.24 MG/DL (0.55-1.30); GLOMERULAR FILTRATION RATE 44.8 (>39); POTASSIUM SERUM 3.9 MMOL/L (3.5-5.1)
[2023-01-21] MEDS: LR 1,000 ML IV SCH ×2 (10:14→18:54)
[2023-01-21] MEDS: SENNA 8.6 MG TAB (SENOKOT) PO SCH (11:50)
[2023-01-21 14:00] VITALS: BP 135/71; TEMP 97.2; O2SAT 98
[2023-01-21 18:17] LABS: CALCIUM LEVEL 8.6 MG/DL (8.3-10.6); CREATININE FOR GFR 1.18 MG/DL (0.55-1.30); GLOMERULAR FILTRATION RATE 47.4 (>39)
[2023-01-21 19:58] VITALS: BP 134/66; TEMP 97.9; O2SAT 96
[2023-01-21] MEDS: SIMVASTATIN 20 MG TAB PO SCH (20:04)
[2023-01-21] MEDS: METAMUCIL (PSYLLIUM) PACKET PO SCH (20:10)
[2023-01-21] MEDS: MIRALAX *UNIT DOSE* 17GM PACKET PO SCH (20:10)
[2023-01-22] MEDS: oxyCODONE 5MG TAB PO PRN (04:27)
[2023-01-22] MEDS: CYCLOBENZAPRINE 10MG TABLET PO SCH (05:26)
[2023-01-22] MEDS: ACETAMINOPHEN 500 MG TAB PO SCH ×2 (05:27→12:37)
[2023-01-22 06:00] VITALS: BP_SYST 138; BP_SYST 154; BP_DIAS 72; BP_DIAS 99; TEMP 97.2; TEMP 98.6; O2SAT 92; O2SAT 98
[2023-01-22] MEDS: SYMBICORT 160/4.5MCG INHALER 6GM INH SCH (07:24)
[2023-01-22 09:12] VITALS: BP 154/99
[2023-01-22] MEDS: INSULIN LISPRO (NovoLOG) PER UNIT SC SCH ×2 (09:12→12:36)
[2023-01-22] MEDS: amLODIPine 5 MG TAB PO SCH (09:12)
[2023-01-22] MEDS: GABAPENTIN 100 MG CAP PO SCH (09:12)
[2023-01-22] MEDS: MIRALAX *UNIT DOSE* 17GM PACKET PO SCH (09:13)
[2023-01-22] MEDS: ENOXAPARIN 40MG/0.4ML SYRINGE (J1650 PER 10MG) SC SCH (09:13)
[2023-01-22] MEDS: METAMUCIL (PSYLLIUM) PACKET PO SCH (09:13)
[2023-01-22] MEDS: OMEGA-3 1000MG CAPSULE PO SCH (09:13)
[2023-01-22] MEDS: PANTOPRAZOLE 40MG TAB (PROTONIX) PO SCH (09:14)
[2023-01-22] MEDS: LIDOCAINE 5% (LIDODERM) PATCH TD SCH (09:14)
[2023-01-22] MEDS: DICLOFENAC EPOLAMINE 1.3% PATCH TOP SCH ×2 (09:14→09:29)
[2023-01-22] MEDS ORDERED: DICL100G10 TOP (10:45)
[2023-01-22] MEDS ORDERED: CYCL10TA20 PO (10:45)
[2023-01-22] MEDS ORDERED: AMLO1TAB24 PO (10:45)
[2023-01-22] MEDS ORDERED: OXYC-517 PO (10:45)
[2023-01-22] MEDS ORDERED: NEUR300C PO (10:45)
[2023-01-22] MEDS ORDERED: NALO4SPR NS (10:45)
[2023-01-22] MEDS ORDERED: LIDO1PAD13 TOP (10:45)
[2023-01-22] MEDS ORDERED: ACET-683 PO (10:47)
[2023-01-22] MEDS: SENNA 8.6 MG TAB (SENOKOT) PO SCH (12:36)
[2023-01-22 14:00] VITALS: BP 128/68; TEMP 98; O2SAT 88
== END 2023-01-22 14:10 | disposition home or self-care (01) | DRG 543 ==
LOC: M ED 12:42 → EDBD 12:42 → M ED INP 12:43 → ENRESERV 21:22 → M MSPAV 22:30 → OBSVTOIN 01-16 19:20
PROVIDERS: ADMIT Internal Medicine; ATTEND Student in an Organized Health Care Education/Training Program
DX: M48.54XA Collapsed vertebra, not elsewhere classified, thoracic region, initial encounter for fracture (principal); I13.0 Hypertensive heart and chronic kidney disease with heart failure and stage 1 through stage 4 chronic kidney disease, or unspecified chronic kidney disease; I16.9 Hypertensive crisis, unspecified; J96.11 Chronic respiratory failure with hypoxia; N17.9 Acute kidney failure, unspecified; I50.32 Chronic diastolic (congestive) heart failure; E11.22 Type 2 diabetes mellitus with diabetic chronic kidney disease; E78.5 Hyperlipidemia, unspecified; K21.9 Gastro-esophageal reflux disease without esophagitis; K59.00 Constipation, unspecified; R91.1 Solitary pulmonary nodule; Z79.4 Long term (current) use of insulin; J44.9 Chronic obstructive pulmonary disease, unspecified; Z99.81 Dependence on supplemental oxygen; M06.9 Rheumatoid arthritis, unspecified; N18.9 Chronic kidney disease, unspecified; Z85.41 Personal history of malignant neoplasm of cervix uteri; M51.26 Other intervertebral disc displacement, lumbar region; K44.9 Diaphragmatic hernia without obstruction or gangrene; Z91.018 Allergy to other foods; Z79.899 Other long term (current) drug therapy; Z79.82 Long term (current) use of aspirin; Z88.2 Allergy status to sulfonamides; Z85.828 Personal history of other malignant neoplasm of skin; Z66 Do not resuscitate

== ENCOUNTER → 2023-03-09 | Outpatient (CLI) | payer MEDICARE, BC, OTHER ==
[~2023-03-09] MED LIST changes: +ACET-683 PO; +AMLO1TAB24 PO; +CYCL10TA20 PO; +DICL100G10 TOP; +LIDO1PAD13 TOP; +NALO4SPR NS; +NEUR300C PO
== END ==
LOC: M WHC 10:28
PROVIDERS: ATTEND Registered Nurse
DX: Z12.31 Encounter for screening mammogram for malignant neoplasm of breast (principal); Z13.820 Encounter for screening for osteoporosis

== ENCOUNTER → 2023-03-24 | Outpatient (CLI) | payer MEDICARE, BC, OTHER ==
[2023-03-24 17:49] LABS: CALCIUM LEVEL 9.7 MG/DL (8.3-10.6); CREATININE FOR GFR 0.97 MG/DL (0.55-1.30); GLOMERULAR FILTRATION RATE 59.4 (>39); POTASSIUM SERUM 3.8 MMOL/L (3.5-5.1)
== END ==
LOC: M PLALAB 15:25
PROVIDERS: ATTEND Internal Medicine Endocrinology, Diabetes & Metabolism
DX: M80.08XA Age-related osteoporosis with current pathological fracture, vertebra(e), initial encounter for fracture (principal)

== ENCOUNTER → 2023-04-06 | Outpatient (REF) | payer MEDICARE, BC, OTHER ==
[2023-04-06 19:18] LABS: PERCENT SATURATION 16.9 % (13.2-45.0)
[2023-04-06 19:20] LABS: FERRITIN 324.3 NG/ML (7.3-270.7)
== END ==
LOC: M LAB REF 17:14
PROVIDERS: ATTEND Nurse Practitioner Family
DX: D50.9 Iron deficiency anemia, unspecified (principal)

== ENCOUNTER → 2023-05-11 | Outpatient (REF) | payer MEDICARE, BC ==
[~2023-05-11] MED LIST changes: -PSEU30TA86 PO; +PSEU30TA87 PO
[2023-05-11 17:21] LABS: BASO # 0.1 10^3/uL (0.0-0.2); BASO % 0.6 % (0.0-1.0); EOS # 0.3 10^3/uL (0.0-0.5); EOS % 3.3 % (0.0-3.0); HEMATOCRIT 32.3 % (36.0-47.0); LYMPH # 2.6 10^3/uL (1.5-5.0); LYMPH % 31.8 % (24.0-44.0); MONO # 0.9 10^3/uL (0.0-0.8); MONO % 10.5 % (2.0-8.0); NEUTROPHILS # 4.4 10^3/uL (1.5-8.5); NEUTROPHILS % 53.4 % (36.0-66.0); PLATELET COUNT, AUTOMATED 428 10^3/uL (150-450); RED BLOOD COUNT 3.23 10^6/uL (4.00-5.40); WHITE BLOOD COUNT 8.3 10^3/uL (4.0-10.0)
[2023-05-11 17:29] LABS: ERYTHROCYTE SEDIMENTATION RATE 31 mm/hr (0-30)
[2023-05-11 17:42] LABS: C REACTIVE PROTEIN QUANTITATIV < 0.40 MG/DL (<1.0)
[2023-05-11 17:44] LABS: ALBUMIN 3.7 G/DL (3.2-5.2); ALKALINE PHOSPHATASE 67 U/L (46-116); ALT/SGPT 13 U/L (7.0-40); AST/SGOT 15 U/L (<34); BILIRUBIN,DIRECT < 0.1 MG/DL (<0.4); BILIRUBIN,TOTAL 0.2 MG/DL (0.3-1.2); BLOOD UREA NITROGEN 17 MG/DL (9-23); CALCIUM LEVEL 9.8 MG/DL (8.3-10.6); CARBON DIOXIDE LEVEL 35 MMOL/L (20-31); CHLORIDE LEVEL 97 MMOL/L (98-107); CREATININE FOR GFR 1.01 MG/DL (0.55-1.30); GLOMERULAR FILTRATION RATE 56.7 (>39); GLUCOSE, FASTING 111 MG/DL (74-106); POTASSIUM SERUM 4.4 MMOL/L (3.5-5.1); SODIUM LEVEL 138 MMOL/L (136-145); TOTAL PROTEIN 6.7 G/DL (5.7-8.2)
== END ==
LOC: M SFHCRHEU 13:46
PROVIDERS: ATTEND Internal Medicine
DX: M05.79 Rheumatoid arthritis with rheumatoid factor of multiple sites without organ or systems involvement (principal)

== ENCOUNTER → 2023-06-22 | Outpatient (CLI) | payer MEDICARE, BC ==
[~2023-06-22] MED LIST changes: -NALO4SPR NS; +NALO4SPR3 NS
[2023-06-22 15:30] LABS: PERCENT SATURATION 15.6 % (13.2-45.0)
[2023-06-22 15:32] LABS: FERRITIN 162.9 NG/ML (7.3-270.7)
== END ==
LOC: M PLALAB 11:40
PROVIDERS: ATTEND Nurse Practitioner Family
DX: D50.9 Iron deficiency anemia, unspecified (principal)

== ENCOUNTER → 2023-07-05 | Outpatient (CLI) | payer MEDICARE, BC ==
[2023-07-05 15:42] LABS: CREATININE FOR GFR 1.17 MG/DL (0.55-1.30); GLOMERULAR FILTRATION RATE 47.9 (>39)
== END ==
LOC: M PLALAB 11:38
PROVIDERS: ATTEND Registered Nurse
DX: Z01.812 Encounter for preprocedural laboratory examination (principal)

== ENCOUNTER → 2023-07-07 | Outpatient (CLI) | payer MEDICARE, BC ==
[~2023-07-07] MED LIST changes: +GASTROGRAFIN SOLUTION 30ML As Ordered ONE; +ISOVUE-370 76% 100ML VIAL As Ordered ONE; +ONDA-284 PO; -ONDA8TAB8 PO
== END ==
LOC: M RAD 09:06
PROVIDERS: ATTEND Registered Nurse
DX: R63.4 Abnormal weight loss (principal); N28.1 Cyst of kidney, acquired
CPT/HCPCS: 74177; Q9963; Q9967

== ENCOUNTER → 2023-07-20 | Outpatient (CLI) | payer MEDICARE, BC ==
[~2023-07-20] MED LIST changes: +EFFE25TA8 PO; +ETAN50PE SC; +FERR325T3 PO; -GASTROGRAFIN SOLUTION 30ML As Ordered ONE; -ISOVUE-370 76% 100ML VIAL As Ordered ONE; +TERI2.4P SC; +THERTAB52 PO
[2023-07-20 14:56] LABS: HEMOGLOBIN A1c 5.7 % (4.0-6.0)
[2023-07-20 15:10] LABS: ALBUMIN 3.8 G/DL (3.2-5.2); ALKALINE PHOSPHATASE 61 U/L (46-116); ALT/SGPT 19 U/L (7.0-40); AST/SGOT 20 U/L (<34); BILIRUBIN,TOTAL 0.2 MG/DL (0.3-1.2); BLOOD UREA NITROGEN 18 MG/DL (9-23); CALCIUM LEVEL 9.4 MG/DL (8.3-10.6); CARBON DIOXIDE LEVEL 34 MMOL/L (20-31); CHLORIDE LEVEL 98 MMOL/L (98-107); CHOLESTEROL LEVEL 218 MG/DL (<200); CHOLESTEROL RISK RATIO 2.58 (<5); GLOMERULAR FILTRATION RATE > 60.0 (>39); GLUCOSE, FASTING 98 MG/DL (74-106); HDL CHOLESTEROL 84.4 MG/DL (>40); LDL CHOLESTEROL 112.6 MG/DL (<100); NON-HDL-C 133.6 MG/DL; SODIUM LEVEL 140 MMOL/L (136-145); TOTAL PROTEIN 6.7 G/DL (5.7-8.2); TRIGLYCERIDES LEVEL 105 MG/DL (<150)
[2023-07-20 15:11] LABS: TOTAL 25(OH) VITAMIN D 70.6 NG/ML (20.0-100.0)
== END ==
LOC: M PLALAB 09:47
PROVIDERS: ATTEND Registered Nurse
DX: I50.9 Heart failure, unspecified (principal); E11.22 Type 2 diabetes mellitus with diabetic chronic kidney disease; N18.9 Chronic kidney disease, unspecified; M81.0 Age-related osteoporosis without current pathological fracture

== ENCOUNTER 2023-07-31 11:35 | Day surgery (SDC) | payer MEDICARE, BC ==
[~2023-07-31] VITALS: Ht 149.9 cm; Wt 60.8 kg
[~2023-07-31 11:35] MED LIST changes: +NS 1,000 ML IV ONE
[2023-07-31] MEDS ORDERED: LIDOCAINE 2% 100MG/5ML SDV (FOR ANES.) As Ordered ONE (12:57)
[2023-07-31] MEDS ORDERED: propofoL 200 MG/20 ML VIAL As Ordered ONE (12:57)
[2023-07-31 14:45] VITALS: TEMP 97.4
[2023-07-31 15:05] VITALS: BP 153/68; O2SAT 97
== END 2023-07-31 15:07 | disposition home or self-care (01) ==
LOC: M OPP 11:35
PROVIDERS: ATTEND Internal Medicine Gastroenterology
DX: Z12.11 Encounter for screening for malignant neoplasm of colon (principal); Z85.038 Personal history of other malignant neoplasm of large intestine; C18.9 Malignant neoplasm of colon, unspecified; K64.0 First degree hemorrhoids; K57.30 Diverticulosis of large intestine without perforation or abscess without bleeding; D49.0 Neoplasm of unspecified behavior of digestive system; K56.690 Other partial intestinal obstruction; E11.9 Type 2 diabetes mellitus without complications; Z79.02 Long term (current) use of antithrombotics/antiplatelets; Z79.51 Long term (current) use of inhaled steroids; Z79.82 Long term (current) use of aspirin; Z79.84 Long term (current) use of oral hypoglycemic drugs; Z79.899 Other long term (current) drug therapy; Z88.2 Allergy status to sulfonamides; Z91.018 Allergy to other foods; Z87.891 Personal history of nicotine dependence

== ENCOUNTER → 2023-08-21 | Outpatient (CLI) | payer MEDICARE, BC ==
[~2023-08-21] MED LIST changes: -NS 1,000 ML IV ONE
== END ==
LOC: M PLARAD 14:08
PROVIDERS: ATTEND Surgery
DX: C18.7 Malignant neoplasm of sigmoid colon (principal); C18.2 Malignant neoplasm of ascending colon
CPT/HCPCS: 78815; A9552

== ENCOUNTER → 2023-09-04 | Outpatient (CLI) | payer MEDICARE, BC ==
[2023-09-04 13:37] LABS: BASO # 0.1 10^3/uL (0.0-0.2); BASO % 1.1 % (0.0-1.0); EOS # 0.5 10^3/uL (0.0-0.5); EOS % 7.3 % (0.0-3.0); HEMATOCRIT 31.5 % (36.0-47.0); HEMOGLOBIN 9.8 g/dl (12.0-15.5); LYMPH # 2.7 10^3/uL (1.5-5.0); MEAN CORPUSCULAR HEMOGLOBIN 30.3 pg (27.0-33.0); MEAN CORPUSCULAR HGB CONC 31.1 g/dl (32.0-36.5); MEAN CORPUSCULAR VOLUME 97.5 fl (80.0-96.0); MONO # 0.8 10^3/uL (0.0-0.8); MONO % 11.6 % (2.0-8.0); NEUTROPHILS % 41.7 % (36.0-66.0); PLATELET COUNT, AUTOMATED 348 10^3/uL (150-450); RED BLOOD COUNT 3.23 10^6/uL (4.00-5.40); WHITE BLOOD COUNT 7.2 10^3/uL (4.0-10.0)
[2023-09-04 13:53] LABS: ERYTHROCYTE SEDIMENTATION RATE 27 mm/hr (0-30)
[2023-09-04 13:56] LABS: C REACTIVE PROTEIN QUANTITATIV < 0.40 MG/DL (<1.0)
[2023-09-04 13:58] LABS: ALBUMIN 3.8 G/DL (3.2-5.2); ALKALINE PHOSPHATASE 58 U/L (46-116); ALT/SGPT 13 U/L (7.0-40); AST/SGOT 14 U/L (<34); BILIRUBIN,DIRECT < 0.1 MG/DL (<0.4); BILIRUBIN,TOTAL 0.2 MG/DL (0.3-1.2); BLOOD UREA NITROGEN 18 MG/DL (9-23); CALCIUM LEVEL 9.6 MG/DL (8.3-10.6); CARBON DIOXIDE LEVEL 36 MMOL/L (20-31); CHLORIDE LEVEL 98 MMOL/L (98-107); CREATININE FOR GFR 1.21 MG/DL (0.55-1.30); GLOMERULAR FILTRATION RATE 46.1 (>39); GLUCOSE, FASTING 93 MG/DL (74-106); POTASSIUM SERUM 4.7 MMOL/L (3.5-5.1); SODIUM LEVEL 139 MMOL/L (136-145); TOTAL PROTEIN 6.8 G/DL (5.7-8.2)
== END ==
LOC: M PLALAB 10:35
PROVIDERS: ATTEND Internal Medicine
DX: M05.79 Rheumatoid arthritis with rheumatoid factor of multiple sites without organ or systems involvement (principal)

== ENCOUNTER → 2023-09-04 | Outpatient (CLI) | payer MEDICARE, BC ==
[2023-09-04 13:35] LABS: BASO # 0.1 10^3/uL (0.0-0.2); BASO % 1.1 % (0.0-1.0); EOS # 0.5 10^3/uL (0.0-0.5); EOS % 7.6 % (0.0-3.0); HEMATOCRIT 32.3 % (36.0-47.0); HEMOGLOBIN 9.9 g/dl (12.0-15.5); LYMPH # 2.7 10^3/uL (1.5-5.0); LYMPH % 37.5 % (24.0-44.0); MEAN CORPUSCULAR HEMOGLOBIN 29.9 pg (27.0-33.0); MEAN CORPUSCULAR HGB CONC 30.7 g/dl (32.0-36.5); MEAN CORPUSCULAR VOLUME 97.6 fl (80.0-96.0); MONO # 0.8 10^3/uL (0.0-0.8); MONO % 11.1 % (2.0-8.0); NEUTROPHILS % 42.6 % (36.0-66.0); PLATELET COUNT, AUTOMATED 342 10^3/uL (150-450); RED BLOOD COUNT 3.31 10^6/uL (4.00-5.40); WHITE BLOOD COUNT 7.1 10^3/uL (4.0-10.0)
[2023-09-04 13:58] LABS: ALBUMIN 3.8 G/DL (3.2-5.2); BILIRUBIN,TOTAL 0.2 MG/DL (0.3-1.2); CALCIUM LEVEL 9.6 MG/DL (8.3-10.6); CREATININE FOR GFR 1.22 MG/DL (0.55-1.30); GLOMERULAR FILTRATION RATE 45.6 (>39); POTASSIUM SERUM 4.7 MMOL/L (3.5-5.1); TOTAL PROTEIN 6.8 G/DL (5.7-8.2)
== END ==
LOC: M PLALAB 10:38
PROVIDERS: ATTEND Registered Nurse
DX: R63.4 Abnormal weight loss (principal)

== ENCOUNTER 2023-09-28 11:30 | Inpatient (IN) | payer MEDICARE, BC ==
[2023-09-28] VITALS (9 sets, daily range): BP systolic 121–149; BP diastolic 63–101; TEMP 96.4–97.5; O2SAT 91–99
[~2023-09-28] VITALS: Ht 149.9 cm; Wt 63.6 kg
[2023-09-28] MEDS ORDERED: IPRATROPIUM 0.5MG/ALBUTEROL 2.5MG INH SOL UD 3ML (DUONEB) NEB PRN (14:10)
[2023-09-28] MEDS ORDERED: GLUCAGON INJ 1MG VIAL SC PRN (15:00)
[2023-09-28] MEDS ORDERED: PSEUDOEPHEDRINE 30 MG TAB PO PRN (15:00)
[2023-09-28] MEDS ORDERED: GLUCOSE 4 GM CHEW PO PRN (15:00)
[2023-09-28] MEDS: IPRATROPIUM 0.5MG/ALBUTEROL 2.5MG INH SOL UD 3ML (DUONEB) NEB SCH (15:37)
[2023-09-28] MEDS: NS 1,000 ML IV SCH (15:56)
[2023-09-28] MEDS: TORSEMIDE 20 MG TAB PO SCH (16:54)
[2023-09-28] MEDS: INSULIN LISPRO (NovoLOG) PER UNIT SC SCH ×2 (16:55→20:22)
[2023-09-28] MEDS: LEVEMIR (INSULIN DETEMIR) 1 UNITS/0.01ML SC SCH (16:56)
[2023-09-28] MEDS ORDERED: LEVEMIR (INSULIN DETEMIR) 1 UNITS/0.01ML SC SCH (18:00)
[2023-09-28] MEDS: ADVAIR HFA 115/21MCG INHALER INH SCH (19:39)
[2023-09-28] MEDS: ASPIRIN 81MG ENTERIC TABLET PO SCH (20:18)
[2023-09-28] MEDS: OMEGA-3 1000MG CAPSULE PO SCH (20:18)
[2023-09-28] MEDS: SIMVASTATIN 20 MG TAB PO SCH (20:19)
[2023-09-28] MEDS: D5W/0.45% SODIUM CHLORIDE 1,000 ML IV SCH (22:12)
[2023-09-29] VITALS (9 sets, daily range): BP systolic 107–137; BP diastolic 52–75; TEMP 96.6–98.6; O2SAT 95–98
[2023-09-29] MEDS: INSULIN LISPRO (NovoLOG) PER UNIT SC SCH
[2023-09-29] MEDS: PANTOPRAZOLE 40MG VIAL IV SCH (02:24)
[2023-09-29 06:02] LABS: HEMATOCRIT 27.9 % (36.0-47.0); HEMOGLOBIN 8.7 g/dl (12.0-15.5); MEAN CORPUSCULAR HEMOGLOBIN 29.6 pg (27.0-33.0); MEAN CORPUSCULAR HGB CONC 31.2 g/dl (32.0-36.5); MEAN CORPUSCULAR VOLUME 94.9 fl (80.0-96.0); PLATELET COUNT, AUTOMATED 326 10^3/uL (150-450); RED BLOOD COUNT 2.94 10^6/uL (4.00-5.40); WHITE BLOOD COUNT 8.8 10^3/uL (4.0-10.0)
[2023-09-29 06:37] LABS: BLOOD UREA NITROGEN 7 MG/DL (9-23); CALCIUM LEVEL 8.2 MG/DL (8.3-10.6); CARBON DIOXIDE LEVEL 38 MMOL/L (20-31); CHLORIDE LEVEL 102 MMOL/L (98-107); CREATININE FOR GFR 0.92 MG/DL (0.55-1.30); GLOMERULAR FILTRATION RATE > 60.0 (>39); GLUCOSE, FASTING 116 MG/DL (74-106); POTASSIUM SERUM 3.2 MMOL/L (3.5-5.1); SODIUM LEVEL 141 MMOL/L (136-145)
[2023-09-29] MEDS: MULTIVITAMINS/MINERALS THERAP 1 TAB PO SCH (07:56)
[2023-09-29] MEDS: FERROUS SULFATE 325MG TAB PO SCH (08:08)
[2023-09-29] MEDS: POTASSIUM CHLORIDE 10MEQ SR TABLET PO ONE (08:09)
[2023-09-29] MEDS ORDERED: PANTOPRAZOLE 40MG VIAL IV SCH (09:00)
[2023-09-29] MEDS: metroNIDAZOLE 500 MG in IV 1 EA IV ONE (10:41)
[2023-09-29] MEDS: ceFAZolin SOD 2 GM in IV 1 EA IV ONE (11:00)
[2023-09-29] MEDS: GLUCAGON INJ 1MG VIAL As Ordered ONE (11:44)
[2023-09-29] MEDS: cefTRIAXone SOD 1GM VIAL As Ordered ONE (12:45)
[2023-09-29] MEDS ORDERED: fentaNYL 100 MCG/2 ML INJECTION IV PRN (16:40)
[2023-09-29] MEDS ORDERED: oxyCODONE 5MG TAB PO PRN (16:40)
[2023-09-29] MEDS ORDERED: ONDANSETRON 4MG 2ML VIAL IV PRN (16:40)
[2023-09-29] MEDS ORDERED: MORPHINE 4 MG/ML 1ML VIAL IV PRN (16:40)
[2023-09-29] MEDS: KETOROLAC 30 MG/ML 1ML VIAL IV SCH (16:40)
[2023-09-29] MEDS: NS 1,000 ML IV SCH (16:40)
[2023-09-29] MEDS ORDERED: MORPHINE 2 MG/ML 1ML VIAL IV PRN ×2 (16:40)
[2023-09-29] MEDS ORDERED: INSULIN LISPRO (NovoLOG) PER UNIT SC PRN (18:00)
[2023-09-29] MEDS: ONDANSETRON 4MG 2ML VIAL IV PRN (18:28)
[2023-09-29] MEDS: MORPHINE 2 MG/ML 1ML VIAL IV PRN (20:21)
[2023-09-30] VITALS (8 sets, daily range): BP systolic 103–138; BP diastolic 57–77; TEMP 97.3–97.9; O2SAT 93–98
[2023-09-30] MEDS: KETOROLAC 30 MG/ML 1ML VIAL IV ONE (00:29)
[2023-09-30 06:19] LABS: HEMATOCRIT 29.2 % (36.0-47.0); MEAN CORPUSCULAR HEMOGLOBIN 29.5 pg (27.0-33.0); MEAN CORPUSCULAR HGB CONC 30.8 g/dl (32.0-36.5); MEAN CORPUSCULAR VOLUME 95.7 fl (80.0-96.0); PLATELET COUNT, AUTOMATED 314 10^3/uL (150-450); RED BLOOD COUNT 3.05 10^6/uL (4.00-5.40); WHITE BLOOD COUNT 13.2 10^3/uL (4.0-10.0)
[2023-09-30 06:52] LABS: CALCIUM LEVEL 7.7 MG/DL (8.3-10.6); CREATININE FOR GFR 1.1 MG/DL (0.55-1.30); GLOMERULAR FILTRATION RATE 51.3 (>39)
[2023-09-30] MEDS: LEVEMIR (INSULIN DETEMIR) 1 UNITS/0.01ML SC ONE (18:50)
[2023-10-01] VITALS (7 sets, daily range): BP systolic 104–116; BP diastolic 53–67; TEMP 97–98.1; O2SAT 93–98
[2023-10-01 06:32] LABS: HEMATOCRIT 25.7 % (36.0-47.0); MEAN CORPUSCULAR HEMOGLOBIN 29.7 pg (27.0-33.0); MEAN CORPUSCULAR HGB CONC 31.1 g/dl (32.0-36.5); MEAN CORPUSCULAR VOLUME 95.5 fl (80.0-96.0); PLATELET COUNT, AUTOMATED 264 10^3/uL (150-450); RED BLOOD COUNT 2.69 10^6/uL (4.00-5.40); WHITE BLOOD COUNT 12.4 10^3/uL (4.0-10.0)
[2023-10-01 06:58] LABS: CALCIUM LEVEL 7.8 MG/DL (8.3-10.6); CREATININE FOR GFR 1.24 MG/DL (0.55-1.30); GLOMERULAR FILTRATION RATE 44.7 (>39); POTASSIUM SERUM 3.6 MMOL/L (3.5-5.1)
[2023-10-01] MEDS: DEXTROSE 50% 50ML SYRINGE IV PRN (23:47)
[2023-10-02] MEDS: D5W 1,000 ML IV SCH (02:10)
[2023-10-02] MEDS: DEXTROSE 50% 50ML SYRINGE IV STA (03:32)
[2023-10-02 03:40] VITALS: BP 133/67; TEMP 97.2; O2SAT 97
[2023-10-02 06:28] LABS: HEMATOCRIT 27.4 % (36.0-47.0); HEMOGLOBIN 8.4 g/dl (12.0-15.5); MEAN CORPUSCULAR HEMOGLOBIN 29.2 pg (27.0-33.0); MEAN CORPUSCULAR HGB CONC 30.7 g/dl (32.0-36.5); MEAN CORPUSCULAR VOLUME 95.1 fl (80.0-96.0); PLATELET COUNT, AUTOMATED 297 10^3/uL (150-450); RED BLOOD COUNT 2.88 10^6/uL (4.00-5.40); WHITE BLOOD COUNT 11.2 10^3/uL (4.0-10.0)
[2023-10-02 06:58] LABS: BLOOD UREA NITROGEN 9 MG/DL (9-23); CALCIUM LEVEL 8.4 MG/DL (8.3-10.6); CARBON DIOXIDE LEVEL 32 MMOL/L (20-31); CHLORIDE LEVEL 103 MMOL/L (98-107); CREATININE FOR GFR 0.91 MG/DL (0.55-1.30); GLOMERULAR FILTRATION RATE > 60.0 (>39); GLUCOSE, FASTING 192 MG/DL (74-106); POTASSIUM SERUM 3.5 MMOL/L (3.5-5.1); SODIUM LEVEL 136 MMOL/L (136-145)
[2023-10-02 08:00] VITALS: BP 136/69; TEMP 97.3; O2SAT 95
[2023-10-02 12:00] VITALS: BP 131/66; TEMP 97.7; O2SAT 96
[2023-10-02] MEDS: INSULIN LISPRO (NovoLOG) PER UNIT SC SCH ×2 (12:44→20:35)
[2023-10-02 16:00] VITALS: BP 132/82; TEMP 98.1; O2SAT 94
[2023-10-02 19:51] VITALS: BP 134/79; TEMP 97.5; O2SAT 95
[2023-10-02] MEDS: LEVEMIR (INSULIN DETEMIR) 1 UNITS/0.01ML SC SCH (20:34)
[2023-10-03 00:05] VITALS: BP 128/62; TEMP 98.1; O2SAT 96
[2023-10-03 02:06] VITALS: O2SAT 97
[2023-10-03] MEDS: NORCO, ANEXSIA 5/325MG TABLET (HYDROcodone/ACETAMINOPHEN) PO PRN (04:52)
[2023-10-03 04:56] VITALS: BP 146/84; TEMP 97.3; O2SAT 9
[2023-10-03] MEDS ORDERED: LevoFLOXacin 750 MG TABLET PO SCH (06:00)
[2023-10-03 06:06] LABS: HEMOGLOBIN 7.9 g/dl (12.0-15.5); MEAN CORPUSCULAR HEMOGLOBIN 28.7 pg (27.0-33.0); MEAN CORPUSCULAR HGB CONC 30.4 g/dl (32.0-36.5); MEAN CORPUSCULAR VOLUME 94.5 fl (80.0-96.0); PLATELET COUNT, AUTOMATED 315 10^3/uL (150-450); RED BLOOD COUNT 2.75 10^6/uL (4.00-5.40); WHITE BLOOD COUNT 8.8 10^3/uL (4.0-10.0)
[2023-10-03 06:18] LABS: BLOOD UREA NITROGEN 5 MG/DL (9-23); CALCIUM LEVEL 8.5 MG/DL (8.3-10.6); CARBON DIOXIDE LEVEL 32 MMOL/L (20-31); CHLORIDE LEVEL 104 MMOL/L (98-107); CREATININE FOR GFR 0.84 MG/DL (0.55-1.30); GLOMERULAR FILTRATION RATE > 60.0 (>39); GLUCOSE, FASTING 181 MG/DL (74-106); POTASSIUM SERUM 3.6 MMOL/L (3.5-5.1); SODIUM LEVEL 140 MMOL/L (136-145)
[2023-10-03] MEDS: PANTOPRAZOLE 40MG TAB (PROTONIX) PO SCH (08:05)
[2023-10-03] MEDS: POTASSIUM CHLORIDE 10MEQ SR TABLET PO ONE (10:56)
[2023-10-03] MEDS: TORSEMIDE 20 MG TAB PO SCH (10:57)
[2023-10-03] MEDS: LevoFLOXacin 750 MG TABLET PO SCH (10:57)
[2023-10-03 12:00] VITALS: BP 137/71; TEMP 97.2; O2SAT 97
[2023-10-03] MEDS: guaiFENesin ER TABLET 600 MG TAB PO SCH (13:02)
[2023-10-03 16:00] VITALS: BP 137/71; TEMP 97.9; O2SAT 97
[2023-10-03 19:38] VITALS: BP 130/73; TEMP 97.7; O2SAT 97
[2023-10-04] VITALS (10 sets, daily range): BP systolic 129–153; BP diastolic 71–86; TEMP 97.4–97.9; O2SAT 95–99
[2023-10-04] MEDS: MAALOX 30 ML SUSP *UDC PO PRN (05:35)
[2023-10-04 05:51] LABS: HEMATOCRIT 27.1 % (36.0-47.0); HEMOGLOBIN 8.4 g/dl (12.0-15.5); MEAN CORPUSCULAR HEMOGLOBIN 29.2 pg (27.0-33.0); MEAN CORPUSCULAR VOLUME 94.1 fl (80.0-96.0); PLATELET COUNT, AUTOMATED 354 10^3/uL (150-450); RED BLOOD COUNT 2.88 10^6/uL (4.00-5.40); WHITE BLOOD COUNT 7.2 10^3/uL (4.0-10.0)
[2023-10-04 06:21] LABS: CREATININE FOR GFR 0.98 MG/DL (0.55-1.30); GLOMERULAR FILTRATION RATE 58.6 (>39); POTASSIUM SERUM 3.6 MMOL/L (3.5-5.1)
[2023-10-04] MEDS: POTASSIUM CHLORIDE 10MEQ SR TABLET PO SCH (08:08)
[2023-10-04] MEDS: SENNA 8.6 MG TAB (SENOKOT) PO SCH (12:18)
[2023-10-04] MEDS: DOCUSATE SODIUM 100MG CAPSULE PO SCH (12:18)
[2023-10-04] MEDS: BISACODYL 10MG SUPP PR SCH (12:18)
[2023-10-05] VITALS: BP 150/75; TEMP 97.5; O2SAT 97
[2023-10-05] MEDS: RAMELTEON 8 MG TAB (ROZEREM) PO PRN (00:40)
[2023-10-05 04:45] VITALS: BP 142/74; TEMP 97.5; O2SAT 97
[2023-10-05 06:21] LABS: HEMATOCRIT 26.6 % (36.0-47.0); HEMOGLOBIN 8.1 g/dl (12.0-15.5); MEAN CORPUSCULAR HEMOGLOBIN 28.8 pg (27.0-33.0); MEAN CORPUSCULAR HGB CONC 30.5 g/dl (32.0-36.5); MEAN CORPUSCULAR VOLUME 94.7 fl (80.0-96.0); PLATELET COUNT, AUTOMATED 392 10^3/uL (150-450); RED BLOOD COUNT 2.81 10^6/uL (4.00-5.40); WHITE BLOOD COUNT 7.9 10^3/uL (4.0-10.0)
[2023-10-05 06:45] LABS: BLOOD UREA NITROGEN 6 MG/DL (9-23); CALCIUM LEVEL 9.1 MG/DL (8.3-10.6); CARBON DIOXIDE LEVEL 34 MMOL/L (20-31); CHLORIDE LEVEL 103 MMOL/L (98-107); CREATININE FOR GFR 0.89 MG/DL (0.55-1.30); GLOMERULAR FILTRATION RATE > 60.0 (>39); GLUCOSE, FASTING 134 MG/DL (74-106); SODIUM LEVEL 140 MMOL/L (136-145)
[2023-10-05 12:00] VITALS: BP 135/74; TEMP 97.3; O2SAT 97
[2023-10-05 19:54] VITALS: BP 115/71; TEMP 97.9; O2SAT 94
[2023-10-06 04:00] VITALS: BP 120/57; TEMP 97.5; O2SAT 97
[2023-10-06 12:00] VITALS: BP 137/66; TEMP 97.3; O2SAT 94
[2023-10-06 17:45] VITALS: O2SAT 94
[2023-10-06 20:00] VITALS: BP 99/60; TEMP 98.1; O2SAT 96
[2023-10-06 21:45] VITALS: O2SAT 95
[2023-10-07 01:20] VITALS: O2SAT 97
[2023-10-07 05:34] VITALS: BP 118/61; TEMP 97.2; O2SAT 99
[2023-10-07 12:00] VITALS: BP 121/58; TEMP 97; O2SAT 98
[2023-10-07 19:55] VITALS: O2SAT 98
[2023-10-07 20:52] VITALS: BP 111/57; TEMP 97; O2SAT 98
[2023-10-08 01:29] VITALS: O2SAT 97
[2023-10-08 05:39] VITALS: BP 109/56; TEMP 97.4; O2SAT 98
== END 2023-10-08 13:15 | disposition home or self-care (01) | DRG 374 ==
LOC: M MSPAV 14:47
PROVIDERS: ADMIT Surgery; ATTEND Surgery
PROC: 0DBK8ZX Excision of Ascending Colon, Via Natural or Artificial Opening Endoscopic, Diagnostic (ICD-10-PCS; principal; 2023-09-28)
PROC: 0DBN8ZX Excision of Sigmoid Colon, Via Natural or Artificial Opening Endoscopic, Diagnostic (ICD-10-PCS; 2023-09-28)
DX: C18.7 Malignant neoplasm of sigmoid colon (principal); J18.9 Pneumonia, unspecified organism; C18.2 Malignant neoplasm of ascending colon; J96.11 Chronic respiratory failure with hypoxia; E11.22 Type 2 diabetes mellitus with diabetic chronic kidney disease; E78.00 Pure hypercholesterolemia, unspecified; N18.30 Chronic kidney disease, stage 3 unspecified; J44.9 Chronic obstructive pulmonary disease, unspecified; I12.9 Hypertensive chronic kidney disease with stage 1 through stage 4 chronic kidney disease, or unspecified chronic kidney disease; E78.5 Hyperlipidemia, unspecified; M05.9 Rheumatoid arthritis with rheumatoid factor, unspecified; M81.0 Age-related osteoporosis without current pathological fracture; K21.9 Gastro-esophageal reflux disease without esophagitis; E61.1 Iron deficiency; E11.649 Type 2 diabetes mellitus with hypoglycemia without coma; E87.6 Hypokalemia; Z99.81 Dependence on supplemental oxygen; Z98.41 Cataract extraction status, right eye; Z98.42 Cataract extraction status, left eye; Z85.828 Personal history of other malignant neoplasm of skin; Z90.49 Acquired absence of other specified parts of digestive tract; Z87.891 Personal history of nicotine dependence; Z79.4 Long term (current) use of insulin; Z79.82 Long term (current) use of aspirin; Z79.899 Other long term (current) drug therapy; Z88.2 Allergy status to sulfonamides; Z91.018 Allergy to other foods

== ENCOUNTER → 2023-12-21 | Outpatient (CLI) | payer MEDICARE, BC ==
[~2023-12-21] MED LIST changes: +NALO4SPR20 NS; -NALO4SPR3 NS
[2023-12-21 13:21] LABS: BASO # 0.1 10^3/uL (0.0-0.2); EOS # 0.2 10^3/uL (0.0-0.5); EOS % 2.8 % (0.0-3.0); HEMATOCRIT 29.3 % (36.0-47.0); HEMOGLOBIN 8.7 g/dl (12.0-15.5); LYMPH # 2.2 10^3/uL (1.5-5.0); LYMPH % 32.6 % (24.0-44.0); MEAN CORPUSCULAR HEMOGLOBIN 27.5 pg (27.0-33.0); MEAN CORPUSCULAR HGB CONC 29.7 g/dl (32.0-36.5); MEAN CORPUSCULAR VOLUME 92.7 fl (80.0-96.0); MONO # 0.8 10^3/uL (0.0-0.8); MONO % 12.2 % (2.0-8.0); NEUTROPHILS # 3.5 10^3/uL (1.5-8.5); NEUTROPHILS % 51.3 % (36.0-66.0); PLATELET COUNT, AUTOMATED 435 10^3/uL (150-450); RED BLOOD COUNT 3.16 10^6/uL (4.00-5.40); WHITE BLOOD COUNT 6.7 10^3/uL (4.0-10.0)
[2023-12-21 13:22] LABS: ALBUMIN 3.8 G/DL (3.2-5.2); ALKALINE PHOSPHATASE 46 U/L (35-104); ALT/SGPT 11 U/L (7.0-40); AST/SGOT 14 U/L (<34); BILIRUBIN,TOTAL 0.2 MG/DL (0.3-1.2); BLOOD UREA NITROGEN 29 MG/DL (9-23); CALCIUM LEVEL 10.2 MG/DL (8.3-10.6); CARBON DIOXIDE LEVEL > 40.0 MMOL/L (20-31); CHLORIDE LEVEL 97 MMOL/L (98-107); CHOLESTEROL LEVEL 192 MG/DL (<200); CHOLESTEROL RISK RATIO 2.13 (<5); CREATININE FOR GFR 1.58 MG/DL (0.55-1.30); GLOMERULAR FILTRATION RATE 33.8 (>39); GLUCOSE, FASTING 103 MG/DL (74-106); POTASSIUM SERUM 4.3 MMOL/L (3.5-5.1); SODIUM LEVEL 143 MMOL/L (136-145); TOTAL PROTEIN 7.1 G/DL (5.7-8.2); TRIGLYCERIDES LEVEL 85 MG/DL (<150)
[2023-12-21 13:36] LABS: HEMOGLOBIN A1c 6.4 % (4.0-6.0)
== END ==
LOC: M PLALAB 09:26
PROVIDERS: ATTEND Registered Nurse
DX: N18.30 Chronic kidney disease, stage 3 unspecified (principal); E11.22 Type 2 diabetes mellitus with diabetic chronic kidney disease; E78.2 Mixed hyperlipidemia

== ENCOUNTER → 2024-02-08 | Outpatient (CLI) | payer MEDICARE, BC ==
[~2024-02-08] MED LIST changes: -ADV250INH INH; +ADVA1AER9 INH
[2024-02-08 14:12] LABS: BASO # 0.1 10^3/uL (0.0-0.2); BASO % 0.9 % (0.0-1.0); EOS # 0.3 10^3/uL (0.0-0.5); EOS % 4.7 % (0.0-3.0); HEMATOCRIT 24.8 % (36.0-47.0); HEMOGLOBIN 7.2 g/dl (12.0-15.5); LYMPH # 2.3 10^3/uL (1.5-5.0); LYMPH % 35.3 % (24.0-44.0); MEAN CORPUSCULAR HEMOGLOBIN 26.8 pg (27.0-33.0); MEAN CORPUSCULAR VOLUME 92.2 fl (80.0-96.0); MONO # 0.8 10^3/uL (0.0-0.8); NEUTROPHILS # 3.1 10^3/uL (1.5-8.5); NEUTROPHILS % 46.9 % (36.0-66.0); PLATELET COUNT, AUTOMATED 571 10^3/uL (150-450); RED BLOOD COUNT 2.69 10^6/uL (4.00-5.40); WHITE BLOOD COUNT 6.6 10^3/uL (4.0-10.0)
[2024-02-08 14:24] LABS: ERYTHROCYTE SEDIMENTATION RATE 12 mm/hr (0-30)
[2024-02-08 14:35] LABS: C REACTIVE PROTEIN QUANTITATIV < 0.50 MG/DL (<1.0)
[2024-02-08 14:36] LABS: ALBUMIN 3.6 G/DL (3.2-5.2); ALKALINE PHOSPHATASE 52 U/L (35-104); ALT/SGPT 14 U/L (7.0-40); AST/SGOT 19 U/L (<34); BILIRUBIN,DIRECT < 0.1 MG/DL (<0.4); BILIRUBIN,TOTAL 0.2 MG/DL (0.3-1.2); BLOOD UREA NITROGEN 15 MG/DL (9-23); CALCIUM LEVEL 9.5 MG/DL (8.3-10.6); CARBON DIOXIDE LEVEL 35 MMOL/L (20-31); CHLORIDE LEVEL 100 MMOL/L (98-107); CREATININE FOR GFR 1.07 MG/DL (0.55-1.30); GLOMERULAR FILTRATION RATE 52.9 (>39); GLUCOSE, FASTING 98 MG/DL (74-106); POTASSIUM SERUM 4.7 MMOL/L (3.5-5.1); SODIUM LEVEL 141 MMOL/L (136-145); TOTAL PROTEIN 6.8 G/DL (5.7-8.2)
== END ==
LOC: M PLALAB 11:18
PROVIDERS: ATTEND Internal Medicine
DX: M05.49 Rheumatoid myopathy with rheumatoid arthritis of multiple sites (principal)

== ENCOUNTER 2024-02-13 08:50 | Emergency (ER) | payer MEDICARE, BC ==
[~2024-02-13] VITALS: Ht 149.9 cm; Wt 62.1 kg
[2024-02-13 08:54] VITALS: BP 146/70; TEMP 98.2
[2024-02-13 10:35] LABS: HEMATOCRIT 26.7 % (36.0-47.0); HEMOGLOBIN 7.6 g/dl (12.0-15.5); MEAN CORPUSCULAR HEMOGLOBIN 26.4 pg (27.0-33.0); MEAN CORPUSCULAR HGB CONC 28.5 g/dl (32.0-36.5); MEAN CORPUSCULAR VOLUME 92.7 fl (80.0-96.0); PLATELET COUNT, AUTOMATED 509 10^3/uL (150-450); RED BLOOD COUNT 2.88 10^6/uL (4.00-5.40); WHITE BLOOD COUNT 7.6 10^3/uL (4.0-10.0)
[2024-02-13 10:48] LABS: INR 0.87; PARTIAL THROMBOPLASTIN TIME 24.3 SECONDS (24.8-34.2); PROTHROMBIN TIME 12.2 SECONDS (12.5-14.5)
[2024-02-13 10:49] LABS: BLOOD UREA NITROGEN 18 MG/DL (9-23); CALCIUM LEVEL 9.3 MG/DL (8.3-10.6); CARBON DIOXIDE LEVEL 36 MMOL/L (20-31); CHLORIDE LEVEL 103 MMOL/L (98-107); CREATININE FOR GFR 0.95 MG/DL (0.55-1.30); GLOMERULAR FILTRATION RATE > 60.0 (>39); GLUCOSE, FASTING 97 MG/DL (74-106); SODIUM LEVEL 143 MMOL/L (136-145)
[2024-02-13 11:35] VITALS: O2SAT 100
== END 2024-02-13 12:04 | disposition home or self-care (01) ==
LOC: M ED 08:50
DX: D64.9 Anemia, unspecified (principal); E61.1 Iron deficiency; J44.9 Chronic obstructive pulmonary disease, unspecified; E78.5 Hyperlipidemia, unspecified; N18.9 Chronic kidney disease, unspecified; K21.9 Gastro-esophageal reflux disease without esophagitis; Z88.2 Allergy status to sulfonamides; Z91.018 Allergy to other foods; Z79.52 Long term (current) use of systemic steroids; Z79.82 Long term (current) use of aspirin; Z79.83 Long term (current) use of bisphosphonates; Z79.899 Other long term (current) drug therapy

== ENCOUNTER → 2024-03-21 | Outpatient (CLI) | payer MEDICARE, BC | LOC: M WHC 11:19 | PROVIDERS: ATTEND Registered Nurse | DX: Z12.31 Encounter for screening mammogram for malignant neoplasm of breast (principal); M05.79 Rheumatoid arthritis with rheumatoid factor of multiple sites without organ or systems involvement ==

== ENCOUNTER → 2024-03-21 | Outpatient (CLI) | payer MEDICARE, BC ==
[2024-03-21 16:34] LABS: BASO # 0.1 10^3/uL (0.0-0.2); BASO % 0.7 % (0.0-1.0); EOS # 0.4 10^3/uL (0.0-0.5); EOS % 4.8 % (0.0-3.0); HEMATOCRIT 33.2 % (36.0-47.0); HEMOGLOBIN 9.8 g/dl (12.0-15.5); LYMPH # 2.6 10^3/uL (1.5-5.0); LYMPH % 35.2 % (24.0-44.0); MEAN CORPUSCULAR HEMOGLOBIN 28.6 pg (27.0-33.0); MEAN CORPUSCULAR HGB CONC 29.5 g/dl (32.0-36.5); MEAN CORPUSCULAR VOLUME 96.8 fl (80.0-96.0); MONO # 0.8 10^3/uL (0.0-0.8); MONO % 10.3 % (2.0-8.0); NEUTROPHILS # 3.6 10^3/uL (1.5-8.5); NEUTROPHILS % 48.6 % (36.0-66.0); PLATELET COUNT, AUTOMATED 429 10^3/uL (150-450); RED BLOOD COUNT 3.43 10^6/uL (4.00-5.40); WHITE BLOOD COUNT 7.3 10^3/uL (4.0-10.0)
[2024-03-21 16:41] LABS: C REACTIVE PROTEIN QUANTITATIV < 0.50 MG/DL (<1.0)
[2024-03-21 16:43] LABS: ALKALINE PHOSPHATASE 53 U/L (35-104); ALT/SGPT 13 U/L (7.0-40); AST/SGOT 19 U/L (<34); BILIRUBIN,DIRECT < 0.1 MG/DL (<0.4); BILIRUBIN,TOTAL 0.2 MG/DL (0.3-1.2); BLOOD UREA NITROGEN 21 MG/DL (9-23); CARBON DIOXIDE LEVEL 38 MMOL/L (20-31); CHLORIDE LEVEL 97 MMOL/L (98-107); CREATININE FOR GFR 1.23 MG/DL (0.55-1.30); GLOMERULAR FILTRATION RATE 45.1 (>39); GLUCOSE, FASTING 128 MG/DL (74-106); POTASSIUM SERUM 4.5 MMOL/L (3.5-5.1); SODIUM LEVEL 140 MMOL/L (136-145); TOTAL PROTEIN 7.7 G/DL (5.7-8.2)
[2024-03-21 19:55] LABS: ERYTHROCYTE SEDIMENTATION RATE 33 mm/hr (0-30)
== END ==
LOC: M PLALAB 11:22
PROVIDERS: ATTEND Internal Medicine
DX: M05.79 Rheumatoid arthritis with rheumatoid factor of multiple sites without organ or systems involvement (principal)

== ENCOUNTER → 2024-05-06 | Outpatient (CLI) | payer MEDICARE, BC ==
[2024-05-06 10:47] LABS: BASO # 0.1 10^3/uL (0.0-0.2); BASO % 0.9 % (0.0-1.0); EOS # 0.4 10^3/uL (0.0-0.5); EOS % 5.4 % (0.0-3.0); HEMATOCRIT 29.7 % (36.0-47.0); HEMOGLOBIN 8.9 g/dl (12.0-15.5); LYMPH # 2.4 10^3/uL (1.5-5.0); LYMPH % 35.3 % (24.0-44.0); MEAN CORPUSCULAR HEMOGLOBIN 29.4 pg (27.0-33.0); MONO # 0.8 10^3/uL (0.0-0.8); MONO % 12.3 % (2.0-8.0); NEUTROPHILS # 3.1 10^3/uL (1.5-8.5); NEUTROPHILS % 45.8 % (36.0-66.0); PLATELET COUNT, AUTOMATED 395 10^3/uL (150-450); RED BLOOD COUNT 3.03 10^6/uL (4.00-5.40); WHITE BLOOD COUNT 6.7 10^3/uL (4.0-10.0)
[2024-05-06 11:16] LABS: ALBUMIN 3.6 G/DL (3.2-5.2); BILIRUBIN,TOTAL 0.2 MG/DL (0.3-1.2); CALCIUM LEVEL 9.4 MG/DL (8.3-10.6); CREATININE FOR GFR 1.21 MG/DL (0.55-1.30); GLOMERULAR FILTRATION RATE 45.9 (>39); POTASSIUM SERUM 4.5 MMOL/L (3.5-5.1)
== END ==
LOC: M LAB 09:31
PROVIDERS: ATTEND Internal Medicine Medical Oncology
DX: C18.9 Malignant neoplasm of colon, unspecified (principal)

== ENCOUNTER → 2024-05-06 | Outpatient (CLI) | payer MEDICARE, BC | LOC: M RAD 09:28 | PROVIDERS: ATTEND Internal Medicine Pulmonary Disease | DX: Z12.2 Encounter for screening for malignant neoplasm of respiratory organs (principal); Z87.891 Personal history of nicotine dependence; C18.9 Malignant neoplasm of colon, unspecified ==

== ENCOUNTER → 2024-05-21 | Outpatient (CLI) | payer MEDICARE, BC ==
[~2024-05-21] MED LIST changes: +GASTROGRAFIN SOLUTION 30ML ONE; +ISOVUE-370 76% 100ML VIAL ONE
== END ==
LOC: M PLAIMG 10:56
PROVIDERS: ATTEND Internal Medicine Hematology & Oncology
DX: C18.9 Malignant neoplasm of colon, unspecified (principal)
CPT/HCPCS: 71260; 74177; Q9963; Q9967

== ENCOUNTER 2024-09-30 11:59 | Observation (INO) | payer MEDICARE, OTHER, BC ==
[~2024-09-30 11:59] MED LIST changes: -GASTROGRAFIN SOLUTION 30ML ONE; -ISOVUE-370 76% 100ML VIAL ONE
[2024-09-30 13:17] LABS: BASO # 0.1 10^3/uL (0.0-0.2); BASO % 0.5 % (0.0-1.0); EOS # 0.1 10^3/uL (0.0-0.5); EOS % 1.2 % (0.0-3.0); LYMPH # 1.0 10^3/uL (1.5-5.0); LYMPH % 8.0 % (24.0-44.0); MONO # 1.1 10^3/uL (0.0-0.8); MONO % 9.5 % (2.0-8.0); NEUTROPHILS # 9.6 10^3/uL (1.5-8.5); NEUTROPHILS % 80.4 % (36.0-66.0); PLATELET COUNT, AUTOMATED 412 10^3/uL (150-450)
[2024-09-30 13:45] LABS: VENOUS BASE EXCESS 6.1 (-2.0-2.0); VENOUS HCO3 32.2 MMOL/L (23.0-27.0); VENOUS O2 SATURATION 92.8 % (60.0-80.0); VENOUS PARTIAL PRESSURE CO2 55.8 mmHg (38.0-50.0); VENOUS PARTIAL PRESSURE O2 67.9 mmHg (30.0-50.0); VENOUS PH 7.379 UNITS (7.330-7.430); VENOUS STANDARD HCO3 29.9 MMOL/L; VENOUS TOTAL CO2 33.9 MMOL/L (24.0-28.0)
[2024-09-30 13:45] LABS: ALT/SGPT 13 U/L (7.0-40); AST/SGOT 34 U/L (<34); CALCIUM LEVEL 9.5 MG/DL (8.3-10.6); CARBON DIOXIDE LEVEL 36 MMOL/L (20-31); CHLORIDE LEVEL 98 MMOL/L (98-107); CREATININE FOR GFR 0.95 MG/DL (0.55-1.30); GLOMERULAR FILTRATION RATE 61.3 (>39); POTASSIUM SERUM 4.9 MMOL/L (3.5-5.1); SODIUM LEVEL 142 MMOL/L (136-145)
[2024-09-30 14:32] LABS: IRON (FE) 200 UG/DL (50-170); PERCENT SATURATION 57.3 % (13.2-45.0)
[2024-09-30 14:35] LABS: VITAMIN B12 LEVEL 322 PG/ML (211-911)
[2024-09-30 15:13] LABS: KETONE, URINE AUTO RFX NEGATIVE (NEGATIVE); LEUKOCYTE ESTERASE UR AUTO RFX NEGATIVE (NEGATIVE); NITRITE, URINE AUTO RFX NEGATIVE (NEGATIVE); RBC, URINE AUTO RFX 0 /HPF (0-3); SQUAM EPITHELIAL CELL UR AURFX 1 /HPF (0-6); WBC, URINE AUTO RFX 2 /HPF (0-3)
[2024-09-30] MEDS ORDERED: TORS20TA2 PO (19:17)
[2024-09-30] MEDS ORDERED: ASCO500T PO (19:28)
[2024-09-30] MEDS ORDERED: OCUVTAB4 PO (19:28)
[2024-09-30] MEDS ORDERED: HOME MED LIST COMPLETE! XX SCH (19:35)
[2024-09-30] MEDS: INSULIN LISPRO (NovoLOG) PER UNIT SC SCH (21:00)
[2024-09-30] MEDS ORDERED: DEXTROSE 50% 50 ML SYRINGE IV PRN (21:05)
[2024-09-30] MEDS ORDERED: ALBUTEROL SULFATE 2.5 MG/0.5 ML INH CONCENTRATE NEB SOLN NEB PRN (21:05)
[2024-09-30] MEDS ORDERED: GLUCAGON INJ 1 MG VIAL SC PRN (21:05)
[2024-09-30] MEDS ORDERED: GLUCOSE 4 GM CHEW PO PRN (21:05)
[2024-09-30] MEDS: IPRATROPIUM 0.5 MG/ALBUTEROL 2.5 MG INH SOL UD 3 ML NEB SCH (21:05)
[2024-09-30] MEDS: SYMBICORT 160/4.5MCG INHALER 6GM INH SCH (21:05)
[2024-09-30] MEDS ORDERED: ISOVUE-370 76% 100 ML VIAL As Ordered ONE (21:08)
[2024-09-30] MEDS ORDERED: MOM 30 ML SUSPENSION UDC PO PRN (21:10)
[2024-09-30 23:33] VITALS: BP 151/67; TEMP 97.3; O2SAT 97
[2024-09-30] MEDS: INSULIN GLARGINE-YFGN 1 UNITS/0.01 ML SC SCH (23:45)
[2024-10-01] VITALS (10 sets, daily range): BP systolic 114–149; BP diastolic 60–72; TEMP 97.2–99.1; O2SAT 95–100
[2024-10-01] MEDS: ASPIRIN 81 MG ENTERIC TABLET PO SCH (00:04)
[2024-10-01] MEDS: PANTOPRAZOLE 40MG TAB PO SCH (00:05)
[2024-10-01] MEDS: FUROSEMIDE 40 MG/4 ML VIAL IV SCH (00:05)
[2024-10-01] MEDS: SIMVASTATIN 20 MG TAB PO SCH (00:05)
[2024-10-01] MEDS: ONDANSETRON 4MG 2ML VIAL IV PRN (00:56)
[2024-10-01 07:30] LABS: PLATELET COUNT, AUTOMATED 379 10^3/uL (150-450)
[2024-10-01] MEDS: INSULIN LISPRO (NovoLOG) PER UNIT SC SCH (07:32)
[2024-10-01 07:38] LABS: CALCIUM LEVEL 9.7 MG/DL (8.3-10.6); CARBON DIOXIDE LEVEL 37.0 MMOL/L (20-31); CHLORIDE LEVEL 93.0 MMOL/L (98-107); CREATININE FOR GFR 0.96 MG/DL (0.55-1.30); GLOMERULAR FILTRATION RATE 60.6 (>39); POTASSIUM SERUM 4.5 MMOL/L (3.5-5.1); SODIUM LEVEL 140.0 MMOL/L (136-145)
[2024-10-01] MEDS: HEPARIN SOD 5000 UNITS/ML 1 ML VIAL/SYRINGE SC SCH (08:44)
[2024-10-01] MEDS: FERROUS SULFATE 325 MG TAB PO SCH (08:44)
[2024-10-01] MEDS: METAMUCIL PACKET PO SCH (10:58)
[2024-10-01] MEDS: ACETAMINOPHEN 325 MG TAB PO PRN (10:58)
[2024-10-01] MEDS: diphenhydrAMINE 50 MG/ML VIAL IV ONE (11:08)
[2024-10-01] MEDS: TORSEMIDE 20 MG TAB PO SCH (20:28)
[2024-10-01] MEDS: KETOROLAC TROMETHAMINE 10 MG TAB PO PRN (20:29)
[2024-10-02 01:20] VITALS: BP 142/65; TEMP 97.4; O2SAT 93
[2024-10-02 05:00] VITALS: BP 131/61; TEMP 97.3; O2SAT 95
[2024-10-02 07:07] VITALS: O2SAT 97
[2024-10-02 07:38] LABS: PLATELET COUNT, AUTOMATED 403 10^3/uL (150-450)
[2024-10-02 08:09] LABS: CALCIUM LEVEL 8.9 MG/DL (8.3-10.6); CARBON DIOXIDE LEVEL 38.0 MMOL/L (20-31); CHLORIDE LEVEL 90.0 MMOL/L (98-107); CREATININE FOR GFR 1.25 MG/DL (0.55-1.30); GLOMERULAR FILTRATION RATE 44.1 (>39); POTASSIUM SERUM 4.6 MMOL/L (3.5-5.1); SODIUM LEVEL 136.0 MMOL/L (136-145)
[2024-10-02 08:25] VITALS: BP 124/60; TEMP 97.7; O2SAT 95
[2024-10-02] MEDS: BISACODYL 10 MG SUPP PR ONE (08:29)
[2024-10-02] MEDS: TORSEMIDE 20 MG TAB PO SCH (08:30)
[2024-10-02] MEDS: SENNA 8.6 MG TAB PO PRN (12:46)
[2024-10-02] MEDS: MIRALAX *UNIT DOSE* 17 GM PACKET PO PRN (12:46)
[2024-10-02 12:47] VITALS: BP 111/89; TEMP 98.1; O2SAT 94
[2024-10-02] MEDS ORDERED: PRED50TA57 PO (14:10)
[2024-10-02] MEDS ORDERED: SENN8.6T58 PO (14:11)
[2024-10-03 06:58] LABS: URINE STREP PNEUMONIAE ANTIGEN Not Detected (Not Detected)
== END 2024-10-02 16:45 | disposition home or self-care (01) ==
LOC: M ED 11:59 → M ED INP 12:00 → M MS4PR 23:27
PROVIDERS: ADMIT Student in an Organized Health Care Education/Training Program; ATTEND Internal Medicine
DX: J44.1 Chronic obstructive pulmonary disease with (acute) exacerbation (principal); I10 Essential (primary) hypertension; J96.11 Chronic respiratory failure with hypoxia; E11.9 Type 2 diabetes mellitus without complications; E78.5 Hyperlipidemia, unspecified; D50.9 Iron deficiency anemia, unspecified; M81.0 Age-related osteoporosis without current pathological fracture
CPT/HCPCS: 36415; 70450; 71045; 71275; 80048; 80076; 81001; 82140; 82607; 82728; 82746; 82803; 83550; 83605; 83880; 83930; 84145; 84484; 85025; 85027; 86850; 86900; 86901; 86920; 87040; 87449; 87486; 87581; 87633; 87798; 87899; 93005; 93041; 93306; 93970; 94640; 94760; 96374; 96375; 96376; 97116; 97161; 97165; 97530; 99285; G0378; J1200; J1815; J1938; J2405; J2919; P9016; Q9967

== ENCOUNTER 2024-12-05 08:27 | Day surgery (SDC) | payer MEDICARE, BC ==
[~2024-12-05] VITALS: Ht 149.9 cm; Wt 64.4 kg
[~2024-12-05 08:27] MED LIST changes: +ASCO500T PO; +LIDOCAINE 2% 100 MG/5 ML SDV (FOR ANES.) As Ordered ONE; +OCUVTAB4 PO; +PRED50TA57 PO; +SENN8.6T58 PO
[2024-12-05 09:53] VITALS: TEMP 97.7
[2024-12-05 10:10] VITALS: BP 124/59; O2SAT 100
== END 2024-12-05 10:18 | disposition home or self-care (01) ==
LOC: M OPP 08:27
PROVIDERS: ATTEND Surgery
DX: K63.5 Polyp of colon (principal); K57.30 Diverticulosis of large intestine without perforation or abscess without bleeding; Z98.0 Intestinal bypass and anastomosis status; Z85.038 Personal history of other malignant neoplasm of large intestine; Z88.2 Allergy status to sulfonamides; Z91.018 Allergy to other foods; Z79.51 Long term (current) use of inhaled steroids; Z79.82 Long term (current) use of aspirin; Z79.4 Long term (current) use of insulin; Z79.85 Long-term (current) use of injectable non-insulin antidiabetic drugs; Z79.899 Other long term (current) drug therapy; J44.9 Chronic obstructive pulmonary disease, unspecified

== ENCOUNTER → 2024-12-12 | Outpatient (REF) | payer MEDICARE, BC ==
[~2024-12-12] MED LIST changes: -LIDOCAINE 2% 100 MG/5 ML SDV (FOR ANES.) As Ordered ONE
[2024-12-12 18:00] LABS: IRON (FE) 27.0 UG/DL (50-170)
[2024-12-12 18:01] LABS: PERCENT SATURATION 7.8 % (13.2-45.0)
== END ==
LOC: M LAB REF 16:53
PROVIDERS: ATTEND Nurse Practitioner Family
DX: D50.9 Iron deficiency anemia, unspecified (principal)

== ENCOUNTER → 2025-01-07 | Outpatient (CLI) | payer MEDICARE, BC ==
[2025-01-07 10:51] LABS: BASO # 0.1 10^3/uL (0.0-0.2); BASO % 1.0 % (0.0-1.0); EOS # 0.4 10^3/uL (0.0-0.5); EOS % 5.5 % (0.0-3.0); LYMPH # 1.6 10^3/uL (1.5-5.0); LYMPH % 22.9 % (24.0-44.0); MONO # 0.8 10^3/uL (0.0-0.8); MONO % 11.7 % (2.0-8.0); NEUTROPHILS # 4.0 10^3/uL (1.5-8.5); NEUTROPHILS % 58.6 % (36.0-66.0); PLATELET COUNT, AUTOMATED 471 10^3/uL (150-450)
[2025-01-07 11:25] LABS: ALT/SGPT 13 U/L (7.0-40); AST/SGOT 19 U/L (<34); CALCIUM LEVEL 9.7 MG/DL (8.3-10.6); CARBON DIOXIDE LEVEL > 40.0 MMOL/L (20-31); CHLORIDE LEVEL 91 MMOL/L (98-107); CHOLESTEROL LEVEL 174 MG/DL (<200); CHOLESTEROL RISK RATIO 1.79 (<5); CREATININE FOR GFR 1.40 MG/DL (0.55-1.30); GLOMERULAR FILTRATION RATE 38.5 (>39); LDL CHOLESTEROL 59.2 MG/DL (<100); NON-HDL-C 76.8 MG/DL; POTASSIUM SERUM 4.0 MMOL/L (3.5-5.1); SODIUM LEVEL 142 MMOL/L (136-145); TRIGLYCERIDES LEVEL 88 MG/DL (<150)
[2025-01-07 11:40] LABS: ESTIMATED AVERAGE GLUCOSE 117.0 MG/DL (60-110)
== END ==
LOC: M PLALAB 08:32
PROVIDERS: ATTEND Registered Nurse
DX: E78.2 Mixed hyperlipidemia (principal); E11.22 Type 2 diabetes mellitus with diabetic chronic kidney disease; N18.9 Chronic kidney disease, unspecified